=== PATIENT | male | born 1945 | race Two or more races ===

== ENCOUNTER 2016-08-24 18:26 | Emergency (ER) | payer MEDICARE, OTHER ==
[~2016-08-24] VITALS: Ht 185.4 cm; Wt 127.0 kg
[2016-08-24] MEDS ORDERED: TRAM50TA2 PO (18:39)
[2016-08-24] MEDS ORDERED: IBUP-1114 PO (18:39)
[2016-08-24] MEDS ORDERED: ACET-654 PO (18:39)
[2016-08-24] MEDS ORDERED: ELIQ5TAB PO (18:39)
[2016-08-24] MEDS ORDERED: FURO8SOL PO (18:39)
[2016-08-24] MEDS ORDERED: LOSA100T36 PO (18:39)
[2016-08-24] MEDS ORDERED: PERCOCET 5MG/325MG TAB PO ONE (20:00)
--- NOTE | 2016-08-24 20:50 | REPUSA ---
CT of the lumbar spine without contrast Clinical history: Pain. Technique: Multiple axial CT images were obtained through the lumbar spine without administration of contrast. Coronal and sagittal 3-D reconstructed images were also obtained. Findings: The lumbar vertebral bodies are in satisfactory positioning and alignment. No fractures or dislocatio ns are demonstrated. Intervertebral disc spaces are moderately narrowed at L3/L4 and L4/L5, with mild surrounding disc osteophyte noted. There is no evidence of facet subluxation. The neural foramen david ear grossly patent. The spinal canal demonstrates normal caliber and contour without evidence of spin al stenosis. The surrounding soft tissues are within normal limits. Impression: No acute fracture or traumatic injury. Moderate degenerative disc disease with spondylosi s at L3/L4 and L4/L5.
--- NOTE | 2016-08-24 20:50 | REPUSA ---
CT of the thoracic spine without contrast Clinical history: Pain. Technique: Multiple axial CT images were obtained through the thoracic spine without administration o f contrast. Coronal and sagittal 3-D reconstructed images were also obtained. Findings: The vertebral bodies are in satisfactory positioning and alignment. No fractures or dislocations are demonstrated. Intervertebral disc spaces are well-maintained. There is no evidence of facet subluxati on. The neural foramen appear grossly patent. The spinal canal demonstrates normal caliber and contou r without evidence of spinal stenosis. The surrounding soft tissues are within normal limits. Impression: No acute traumatic injury.
[2016-08-24] MEDS ORDERED: PERC5TAB6 PO (21:04)
[2016-08-24 21:26] VITALS: BP 100/76
== END 2016-08-24 21:29 | disposition home or self-care (01) ==
LOC: M ED 20:11
DX: M51.36 Other intervertebral disc degeneration, lumbar region (principal); S20.229A Contusion of unspecified back wall of thorax, initial encounter; W17.89XA Other fall from one level to another, initial encounter; Y92.099 Unspecified place in other non-institutional residence as the place of occurrence of the external cause; Y93.89 Activity, other specified; Y99.9 Unspecified external cause status
CPT/HCPCS: 72072; 72110; 72128; 72131; 99282; G0463

== ENCOUNTER → 2016-08-24 | Outpatient (CLI) | payer MEDICARE, OTHER ==
[~2016-08-24] MED LIST: ACET-654 PO; ELIQ5TAB PO; FURO8SOL PO; IBUP-1114 PO; LOSA100T36 PO; PERC5TAB6 PO; TRAM50TA2 PO
--- NOTE | 2016-08-24 19:24 | REP ---
LUMBAR SPINE COMPLETE: 08/24/2016: Clinical history: Low back pain without sciatica. Findings: There are no prior studies. The AP view shows pedicles, spinous and transverse processes intact. All five views demonstrate bridging syndesmophytes and osteophytes in the spine with narrowing of multiple disc levels. The largest osteophytes are anteriorly at the L5-S1. SI joints, sacral ala and foramina were intact. No compression deformity. There is facet arthropathy throughout the lower lumbar spine from L3-4 through L5-S1 without spondylolysis or spondylolisthesis. Schmorl's nodes at L2-3, L3-4. Impression: 1. Diffuse degenerative disc changes throughout lumbar spine, greatest at L3-4 and L5-S1 with facet arthritis at the lowermost levels, greatest at L5-S1. No compression deformity, malalignment, spondylolysis or spondylolisthesis. Signed by Johnathon Wise MD 08/24/2016 07:52 P
--- NOTE | 2016-08-24 19:39 | REP ---
THORACIC SPINE THREE VIEWS: 08/24/2016: Clinical history: Back pain. No prior study. Findings: Three views including a coned lateral view of the cervicothoracic junction provided. Pacer over the left upper chest wall laterally with the tip in the right ventricle. There is tortuosity of the aorta, airway deviated by a tortuous trachea. There are diffuse degenerative changes in the mid and lower thoracic spine with marginal osteophytes of the mid upper thoracic spine does not show any osteophytes or compression deformities. There is no fracture, disc space narrowing or other acute finding in the mid and lower thoracic spine. Posterior rib articulations and medial clavicles intact. The cervicothoracic junction aligns normally on the coned lateral view. Impression: 1. Degenerative disc changes mid and lower thoracic spine without compression deformity, malalignment or destructive bone lesion. Signed by Johnathon Wise MD 08/24/2016 07:52 P
== END ==
LOC: M LRY 16:28
PROVIDERS: ATTEND Physician Assistant
DX: M51.36 Other intervertebral disc degeneration, lumbar region (principal); M51.37 Other intervertebral disc degeneration, lumbosacral region; M51.34 Other intervertebral disc degeneration, thoracic region

== ENCOUNTER 2016-09-09 13:47 | Emergency (ER) | payer OTHER ==
[~2016-09-09] VITALS: Ht 185.4 cm; Wt 124.7 kg
[2016-09-09] MEDS ORDERED: ASPIRIN 81 MG CHEW TABLET PO ONE (14:30)
[2016-09-09] MEDS ORDERED: NITROGLYCERIN 0.4 MG SUBL TABLET SL PRN (14:30)
[2016-09-09 14:33] VITALS: BP 177/124
--- NOTE | 2016-09-09 14:57 | REP ---
Clinical: Chest pain. Comparison: None. Findings: Evaluation is limited by portable technique and underpenetration as well as poor inspiratory effort. Cardiomegaly is appreciated. No obvious focal consolidation, definite effusion or pneumothorax. Impression: Cardiomegaly. Mild chronic changes. No definite acute cardiopulmonary process. Signed by Jac Jones MD 09/09/2016 02:49 P
[2016-09-09 15:05] LABS: BASO % 0.4 % (0.0-1.0); EOS # 0.1 K/mm3 (0.0-0.50); EOS % 1.2 % (0.0-3.0); LARGE UNSTAINED CELL # 0.1 K/mm3 (0.0-0.4); LARGE UNSTAINED CELL % 1.8 % (0.0-4.0); LYMPH % 40.5 % (24.0-44.0); MEAN CORPUSCULAR HEMOGLOBIN 31.8 pg (27.0-33.0); MEAN CORPUSCULAR HGB CONC 32.1 g/dl (32.0-36.5); MONO # 0.3 K/mm3 (0.0-0.8); MONO % 3.7 % (0.0-5.0); NEUTROPHILS # 3.9 K/mm3 (1.8-7.7); NEUTROPHILS % 52.4 % (36.0-66.0); PLATELET COUNT, AUTOMATED 115 k/mm3 (150-450); RED CELL DISTRIBUTION WIDTH 12.9 % (11.5-14.5); WHITE BLOOD COUNT 7.5 K/mm3 (4.0-10.0)
[2016-09-09 15:13] LABS: INR 1.12
[2016-09-09 15:25] LABS: ALBUMIN 3.8 GM/DL (3.2-5.2); ALBUMIN/GLOBULIN RATIO 1.12 (1.00-1.93); ALKALINE PHOSPHATASE 111 U/L (45-117); ALT/SGPT 94 U/L (12-78); ANION GAP 6 MEQ/L (8-16); AST/SGOT 36 U/L (15-37); BILIRUBIN,DIRECT 0.4 MG/DL (0.0-0.2); BLOOD UREA NITROGEN 21 MG/DL (7-18); CALCIUM LEVEL 8.5 MG/DL (8.8-10.2); CARBON DIOXIDE LEVEL 30 MEQ/L (21-32); CHLORIDE LEVEL 102 MEQ/L (98-107); CREATININE FOR GFR 1.19 MG/DL (0.70-1.30); GLOMERULAR FILTRATION RATE > 60.0 (>42); GLUCOSE, FASTING 101 MG/DL (83-110); SODIUM LEVEL 138 MEQ/L (136-145); TOTAL PROTEIN 7.2 GM/DL (6.4-8.2)
--- NOTE | 2016-09-09 15:34 | REP ---
Clinical: Bilateral lower extremity pain and swelling . Technique: Cline scale and color Doppler evaluation using linear high frequency transducer. Findings: Ultrasound examination of the right and left lower extremity deep venous structures from the common femoral vein to the popliteal vein demonstrates normal compressibility flow and wave patterns in response to respiration and augmentation. There is no evidence for deep venous thrombosis. Impression: No evidence for deep venous thrombosis. Signed by Jac Jones MD 09/09/2016 03:25 P
[2016-09-09] MEDS ORDERED: ISOVUE-370 76% 100ML VIAL (Q9967) As Ordered ONE (16:01)
[2016-09-09] MEDS ORDERED: PERCOCET 5MG/325MG TAB PO ONE (16:15)
--- NOTE | 2016-09-09 16:29 | REP ---
Clinical: Acute chest pain. Technique: Axial contrast enhanced images from the thoracic inlet to the upper abdomen using 100 ml Isovue 370 intravenous contrast material with coronal and sagittal re-formations. Findings: Satisfactory enhancement of the pulmonary vasculature is achieved and no filling defects are identified to suggest pulmonary embolus. Lung aden demonstrate mild scattered chronic interstitial changes. Atherosclerotic changes of the aorta and coronary arteries noted along with cardiomegaly and mild pulmonary vascular congestion cannot be excluded. No pleural effusion/reaction. Tracheobronchial tree is patent. No pneumothorax. No adenopathy. Surrounding musculoskeletal structures demonstrate age-related changes without focal osseous abnormality. Limited evaluation of the upper abdomen demonstrates pneumobilia. Impression: 1. No evidence for pulmonary embolus. 2. No acute pleuroparenchymal or mediastinal process. 3. Chronic findings include cardiomegaly, atherosclerotic changes to the aorta and coronary arteries, mild chronic interstitial changes. 4. Upper abdomen demonstrates pneumobilia. Signed by Jac Jones MD 09/09/2016 04:21 P
--- NOTE | 2016-09-09 18:18 | REP ---
Clinical: Right-sided abdominal pain with chills. Findings: Lung bases demonstrate chronic changes. There is evidence for pneumobilia and while the gallbladder is mildly distended, there is no evidence for gallbladder wall thickening or pericholecystic fluid to suggest cholangitis. The liver is otherwise normal in appearance for noncontrast evaluation. Spleen, pancreas, bilateral adrenal glands are normal. Kidneys demonstrate mild age-related changes without hydronephrosis and contrast is noted in the collecting system consistent with prior chest CTA. The enteric system is without obstruction or acute inflammatory process. Colonic diverticulosis noted without acute diverticulitis. 5.5 cm fat containing periumbilical hernia noted. Pelvis demonstrates collapsed bladder and mildly prominent prostate gland. No ascites. No free air. No intraperitoneal or retroperitoneal adenopathy. Atherosclerotic changes to the aorta and vasculature noted without aneurysm. Musculoskeletal structures demonstrate degenerative changes without focal osseous abnormality. Impression: 1. Moderate pneumobilia and mildly distended gallbladder without secondary signs to suggest acute infectious/inflammatory process. Given the patient's age findings may be idiopathic. However, correlation with prior procedure including ERCP is recommended as well. 2. Diverticulosis without acute diverticulitis. 3. 5.5 cm fat containing periumbilical hernia. Signed by Jac Jones MD 09/09/2016 06:09 P
[2016-09-09 20:35] VITALS: BP 140/78
[2016-09-09] MEDS ORDERED: PERC5TAB6 PO (21:11)
--- NOTE | 2016-09-10 13:36 | CR ---
DATE OF CONSULTATION: 09/09/2016 REASON FOR CONCENTRATION: Pneumobilia. HISTORY OF PRESENT ILLNESS: The patient is a pleasant 70-year-old man who presented to the emergency department for evaluation at 1347 hours on September 09. He had complained of some chest discomfort, as well as some lightheadedness. These have been intermittent over the last 3 weeks or so. He has not passed out or fallen as a result of the dizziness. He has felt like it but has not actually had a loss of consciousness. His chest discomfort is aching intermittently but not associated with any shortness of breath or diaphoresis. He also reports that he has had a lot of intestinal gas but this has been going on for some time. He recently relocated to [place] from the [facility]. He was brought to the emergency department today by his daughter for further evaluation. In the course of his evaluation, he had a CT scan of the chest to look for any evidence of a pulmonary embolus and this showed no evidence of embolus, but a few small bubbles of air were identified consistent with biliary gas. He subsequently underwent a CT scan of the abdomen and pelvis that shows some definite bubbles of air within the biliary tree. There are no gallstones seen and no inflammatory changes involving the gallbladder. There is no sign of bowel obstruction and no evidence of abscess or inflammation within the abdomen. I was asked to evaluate the patient regarding the pneumobilia and whether this is of any clinical significance. ALLERGIES: The patient reports no known drug allergies. MEDICATIONS: Include: - Lasix - losartan - Eliquis MEDICAL HISTORY: The patient reports a cardiac intervention with a stent placement some years ago. He has also had a pacemaker placed. He reports that the pacemaker was interrogated within the last couple weeks by his core dropper and seems to be working. He denies any history of respiratory issues. He has no history of deep vein thrombosis (DVT) or pulmonary embolus. SURGICAL HISTORY: Significant only for his pacemaker and stent placement. He does report having had a colonoscopy some years ago. REVIEW OF SYSTEMS: Shows that he did have a fall back in early August when he was apparently trying to get up from a sitting position and slipped and landed on the floor with some pain in his lower back. He has not had any crushing sternal pains. He denies shortness of breath or wheezing. He has had no cough or sputum production. He denies any abdominal pain but has had sensation of increased intestinal gas and rumbling. He has not noticed any rectal bleeding. He denies any urinary issues. PHYSICAL EXAMINATION: Reveals a pleasant older man lying quietly on the emergency room stretcher. He is moderately obese. He is alert, oriented and cooperative. He was afebrile on presentation to the emergency department. His pulse is running in the low 50s to about 60. His blood pressure has generally been in the 140-160 range systolically. His skin is warm and dry. Sclerae are anicteric. The mucous membranes are moist. The neck is supple without mass or bruit. Heart exam shows a regular rhythm. He has a pacemaker palpable in the left infraclavicular fossa. The lungs are clear to auscultation bilaterally. He has a scar at the right costal margin about 4-5 cm with a suggestion of a lipoma just above this. The abdomen is obese and somewhat distended. He has bowel sounds present. There is some mild tympany to percussion across the subcostal areas bilaterally. The abdomen is soft and without significant tenderness. There is a suggestion of a prominence at the umbilicus consistent with an umbilical hernia. Lower extremities show no peripheral edema and he has intact dorsalis pedis pulses bilaterally. Calves are nontender. He has palpable radial pulses bilaterally. His laboratory studies include a CBC that shows a white count of 7.5, hemoglobin of 16, hematocrit of 49 and platelet count of 115,000. His differential count shows 52% neutrophils and 40% lymphocytes. His coags show a PT of 14.5, INR of 1.1 and a PTT of 30.3. His chemistry profile shows a sodium 138, potassium 4.0, chloride 102, CO2 of 30 , BUN of 21, creatinine 1.19 and a glucose of 101. Total bilirubin is 1.0, AST is 36, ALT 94 and alkaline phosphatase of 111. Initial cardiac injury profile was negative with a troponin of less than 0.02. His BNP was 114. Total protein 7.2 with an albumin of 3.8. Lipase is normal. The patient had a chest x-ray in the emergency department that revealed cardiomegaly but no other acute changes. An ultrasound of the bilateral lower extremities showed no evidence for deep vein thrombosis. A CT angiogram of the chest showed no evidence for pulmonary embolus. There was evidence for pneumobilia. Therefore a CT scan of the abdomen and pelvis was obtained. The CT of the abdomen and pelvis showed a 5.5 cm fat containing umbilical hernia. The images showed what the radiologist described as moderate pneumobilia with a mildly distended gallbladder but without any evidence of acute inflammation. He was also noted to have diverticulosis without diverticulitis. He did have some atherosclerotic changes of the great vessels. ASSESSMENT: 1. Pneumobilia, without symptoms and likely of a benign etiology. 2. Atherosclerotic coronary artery disease. 3. Status post pacemaker placement. 4. Obesity. 5. Chest pain and dizziness of unclear etiology. RECOMMENDATIONS: At this point, he does not appear to have any problems associated with his pneumobilia. His white count is normal with a normal differential count. His liver function tests are normal and there is no sign of any inflammatory change involving the gallbladder or pericholecystic tissues to suggest some other cause for his pneumobilia. 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 The patient has not had any history of prior biliary surgery or endoscopy. I therefore think it would be reasonable for the patient to be assessed regarding any other ongoing medical issues, but do not think any care directed toward this particular issue is necessary at this time. The patient was counseled regarding this recommendation. ZACHERY
--- NOTE | 2016-09-10 19:53 | ECGEPIP ---
Stationary ECG Study [facility] - ED Test Date: 2016-09-09 Pat Name: JERSON BRYANT Department: Room: - Gender: M [employer]: evelyn : 1945 Requested By: MELISSA Soto Order Number: [id number] Reading MD: Beti Cotto Measurements Intervals [place] Rate: 59 P: DC: 0 QRS: -75 QRSD: 202 T: 79 QT: 499 QTc: 497 Interpretive Statements ELECTRONIC VENTRICULAR PACEMAKER ABNORMAL RHYTHM ECG ATRIAL FIBRILLATION NO PRIOR FOR COMPARISON Electronically Signed On 09-10-2016 19:53:29 EDT by Beti Cotto
--- NOTE | 2016-09-10 19:58 | ECGEPIP ---
Stationary ECG Study [facility] - ED Test Date: 2016-09-09 Pat Name: JERSON BRYANT Department: Room: - Gender: M Rn Progressive Care Unit: suzanne : 1945 Requested By: MELISSA Soto Order Number: [id number] Reading MD: Beti Cotto Measurements Intervals [place] Rate: 57 P: FL: 0 QRS: -71 QRSD: 188 T: 86 QT: 501 QTc: 489 Interpretive Statements ELECTRONIC VENTRICULAR PACEMAKER ABNORMAL RHYTHM ECG SIMILAR 14:09 Electronically Signed On 09-10-2016 19:58:40 EDT by Beti Cotto
== END 2016-09-09 21:27 | disposition home or self-care (01) ==
LOC: M ED 15:43
DX: M54.5 Low back pain (principal); K82.8 Other specified diseases of gallbladder; R07.9 Chest pain, unspecified
CPT/HCPCS: 71010; 71275; 74176; 80048; 80076; 82550; 82553; 83690; 83880; 84484; 85025; 85610; 85730; 93005; 93041; 93971; 94760; 99285; Q9967

== ENCOUNTER 2017-10-22 18:59 | Emergency (ER) | payer OTHER ==
[2017-10-22] MEDS: ONDANSETRON 4MG/2ML VIAL (J2405) IV (20:00)
[2017-10-22] MEDS: MORPHINE 2 MG/ML 1ML SYRINGE (J2270) IV (20:11)
[2017-10-22] MEDS: IPRATROPIUM 0.5MG/ALBUTEROL 2.5MG INH SOL UD 3ML (DUONEB)(J7620) NEB (20:12)
[2017-10-22] MEDS: GASTROGRAFIN SOLUTION 30ML PO ×2 (20:15→20:45)
[2017-10-22 20:18] LABS: LACTIC ACID SEPSIS PROTOCOL 1.3 MMOL/L (0.4-2.0)
[2017-10-22 20:23] LABS: BASO % 0.5 % (0.0-1.0); EOS % 0.2 % (0.0-3.0); HEMATOCRIT 47.4 % (42.0-52.0); HEMOGLOBIN 15.5 g/dl (13.5-17.5); IMMATURE GRANULOCYTE % 0.3 % (0-3.0); LYMPH # 3.3 10^3/uL (1.5-4.5); MEAN CORPUSCULAR HEMOGLOBIN 32.3 pg (27.0-33.0); MEAN CORPUSCULAR VOLUME 98.8 fl (80.0-96.0); MONO # 0.8 10^3/uL (0.0-0.8); MONO % 8.7 % (0.0-5.0); NEUTROPHILS # 4.7 10^3/uL (1.8-7.7); NEUTROPHILS % 53.3 % (36.0-66.0); PLATELET COUNT, AUTOMATED 129 10^3/uL (150-450); RED CELL DISTRIBUTION WIDTH 13.2 % (11.5-14.5); WHITE BLOOD COUNT 8.8 10^3/uL (4.0-10.0)
[2017-10-22 20:25] LABS: MEAN CORPUSCULAR HGB CONC 32.7 g/dl (32.0-36.5)
[2017-10-22] MEDS: FUROSEMIDE 100 MG/10 ML VIAL (J1940) IV (21:00)
[2017-10-22] MEDS: NITROGLYCERIN 2% OINT 1 GM *U/D* PKT TOP (21:00)
[2017-10-22 21:39] LABS: INR 1.07
[2017-10-22 21:59] LABS: ALBUMIN 3.8 GM/DL (3.2-5.2); ALBUMIN/GLOBULIN RATIO 1.09 (1.00-1.93); ALKALINE PHOSPHATASE 93 U/L (45-117); ALT/SGPT 19 U/L (12-78); ANION GAP 11 MEQ/L (8-16); AST/SGOT 18 U/L (7-37); BILIRUBIN,DIRECT 0.5 MG/DL (0.0-0.2); BILIRUBIN,TOTAL 1.3 MG/DL (0.2-1.0); BLOOD UREA NITROGEN 18 MG/DL (7-18); CALCIUM LEVEL 8.7 MG/DL (8.8-10.2); CARBON DIOXIDE LEVEL 26 MEQ/L (21-32); CHLORIDE LEVEL 104 MEQ/L (98-107); CPK CREATINE PHOSPHOKINASE 75 U/L (39-308); CREATININE FOR GFR 1.42 MG/DL (0.70-1.30); GLOMERULAR FILTRATION RATE 52.3 (>42); GLUCOSE, FASTING 100 MG/DL (70-100); LIPASE 582 U/L (73-393); POTASSIUM SERUM 4.4 MEQ/L (3.5-5.1); SODIUM LEVEL 141 MEQ/L (136-145); TOTAL PROTEIN 7.3 GM/DL (6.4-8.2); TROPONIN I < 0.02 NG/ML (< 0.10)
[2017-10-22 22:01] LABS: CK-MB VALUE MASS 1.5 NG/ML (<3.6); NT-PRO BNP 3309 PG/ML (<125)
[2017-10-22] MEDS ORDERED: ISOVUE-370 76% 100ML VIAL (Q9967) As Ordered (22:03)
[2017-10-22] MEDS: TAMSULOSIN 0.4 MG CAP PO (23:00)
[2017-10-22 23:28] LABS: APPEARANCE, URINE CLEAR (CLEAR); BACTERIA, URINE AUTO NEGATIVE (NEGATIVE); BILIRUBIN, URINE AUTO NEGATIVE (NEGATIVE); BLOOD, URINE BLOOD 1+ (NEGATIVE); COLOR, URINE COLORLESS (YELLOW); GLUCOSE, URINE (UA) AUTO NEGATIVE (NEGATIVE); KETONE, URINE AUTO NEGATIVE (NEGATIVE); LEUKOCYTE ESTERASE, URINE AUTO NEGATIVE (NEGATIVE); NITRITE, URINE AUTO NEGATIVE (NEGATIVE); PROTEIN, URINE AUTO NEGATIVE (NEGATIVE); RBC, URINE AUTO 0 /HPF (0-3); SPECIFIC GRAVITY URINE AUTO 1.008 (1.002-1.035); SQUAMOUS EPITHELIAL CELL UR AU 0 /HPF (0-6); UROBILINOGEN, URINE AUTO 0.2 mg/dL (0.0-2.0); WBC, URINE AUTO 1 /HPF (0-3)
[2017-10-23 00:02] LABS: ABG BASE EXCESS 0.2 (-2.0-2.0); ABG HCO3 24.6 MEQ/L (22.0-26.0); ABG O2 SATURATION 94.4 % (95.0-99.0); ABG PARTIAL PRESSURE CO2 39.2 mmHg (35.0-45.0); ABG PARTIAL PRESSURE O2 69.7 mmHg (75.0-100.0); ABG STANDARD HCO3 24.6 MEQ/L (22.0-26.0); ABG TOTAL CO2 25.8 MEQ/L (23.0-31.0); ABG pH (ARTERIAL) 7.415 UNITS (7.350-7.450)
== END 2017-10-23 00:46 | disposition home or self-care (01) ==
LOC: M ED 10-23 00:46
DX: N20.1 Calculus of ureter (principal); I50.9 Heart failure, unspecified; Z91.14 Patient's other noncompliance with medication regimen; M47.816 Spondylosis without myelopathy or radiculopathy, lumbar region; I51.7 Cardiomegaly; J98.11 Atelectasis; I10 Essential (primary) hypertension; Z95.0 Presence of cardiac pacemaker; Z87.891 Personal history of nicotine dependence; Z79.01 Long term (current) use of anticoagulants; Z79.899 Other long term (current) drug therapy
CPT/HCPCS: Q9963

== ENCOUNTER → 2018-06-19 | Outpatient (CLI) | payer MEDICARE ==
[~2018-06-19] MED LIST changes: -ACET-654 PO; +ACET1TAB55 PO; +FLOM0.4C39 PO; +LASI40TA9 PO; -LOSA100T36 PO; +LOSA100T50 PO; +PERC5TAB12 PO; -PERC5TAB6 PO
[2018-06-19 11:54] LABS: INR 1.19; PROTHROMBIN TIME 15.3 SECONDS (12.1-14.4)
[2018-06-19 12:16] LABS: HEMATOCRIT 52.5 % (42.0-52.0); HEMOGLOBIN 16.8 g/dl (13.5-17.5); PLATELET COUNT, AUTOMATED 116 10^3/uL (150-450); RED BLOOD COUNT 5.25 10^6/uL (4.30-6.10); WHITE BLOOD COUNT 6.8 10^3/uL (4.0-10.0)
[2018-06-19 12:23] LABS: HEMOGLOBIN A1c 6.5 %
[2018-06-19 12:24] LABS: ALBUMIN 4.1 GM/DL (3.2-5.2); ALT/SGPT 22 U/L (12-78); BILIRUBIN,TOTAL 1.5 MG/DL (0.2-1.0); BLOOD UREA NITROGEN 19 MG/DL (7-18); CALCIUM LEVEL 9.7 MG/DL (8.8-10.2); CARBON DIOXIDE LEVEL 27 MEQ/L (21-32); CHLORIDE LEVEL 106 MEQ/L (98-107); CHOLESTEROL LEVEL 152 MG/DL (<200); CHOLESTEROL RISK RATIO 2.763 (<5); GLOMERULAR FILTRATION RATE > 60.0 (>42); GLUCOSE, FASTING 95 MG/DL (70-100); HDL CHOLESTEROL 55 MG/DL (>40); LDL CHOLESTEROL 85 MG/DL (<100); NON-HDL-C 97 MG/DL; POTASSIUM SERUM 4.5 MEQ/L (3.5-5.1); PROSTATIC SPECIFIC AG MONITOR 4.39 NG/ML (< 4.00); SODIUM LEVEL 140 MEQ/L (136-145); TOTAL PROTEIN 7.5 GM/DL (6.4-8.2); TRIGLYCERIDES LEVEL 62 MG/DL (<150)
== END ==
LOC: M LAB 11:00
PROVIDERS: ATTEND Family Medicine
DX: I10 Essential (primary) hypertension (principal); R53.83 Other fatigue; Z79.01 Long term (current) use of anticoagulants

== ENCOUNTER 2019-03-29 01:51 | Inpatient (IN) | payer MEDICARE ==
[~2019-03-29] VITALS: Ht 185.4 cm; Wt 119.2 kg
[2019-03-29] MEDS ORDERED: LISI10TA4 PO (02:08)
[2019-03-29] MEDS ORDERED: PRAZ1CAP PO (02:09)
[2019-03-29] MEDS ORDERED: CARB25TA31 PO (02:09)
[2019-03-29] MEDS ORDERED: MORPHINE 4 MG/ML 1ML VIAL/SYRINGE (J2270) IV ONE ×2 (03:00→06:00)
[2019-03-29] MEDS ORDERED: NS 500 ML IV ONE (03:00)
[2019-03-29 03:26] LABS: BASO % 0.2 % (0.0-1.0); EOS % 0.1 % (0.0-3.0); HEMATOCRIT 46.6 % (42.0-52.0); LYMPH # 3.7 10^3/uL (1.5-5.0); LYMPH % 35.8 % (24.0-44.0); MEAN CORPUSCULAR HEMOGLOBIN 33.9 pg (27.0-33.0); MEAN CORPUSCULAR HGB CONC 32.2 g/dl (32.0-36.5); MEAN CORPUSCULAR VOLUME 105.2 fl (80.0-96.0); MONO # 0.3 10^3/uL (0.0-0.8); MONO % 2.6 % (0.0-5.0); NEUTROPHILS # 6.3 10^3/uL (1.5-8.5); PLATELET COUNT, AUTOMATED 144 10^3/uL (150-450); RED BLOOD COUNT 4.43 10^6/uL (4.30-6.10); WHITE BLOOD COUNT 10.3 10^3/uL (4.0-10.0)
[2019-03-29 03:38] LABS: INR 1.22; PROTHROMBIN TIME 15.1 SECONDS (11.8-14.0)
[2019-03-29 03:39] LABS: PARTIAL THROMBOPLASTIN TIME 24.8 SECONDS (25.0-38.4)
[2019-03-29 03:44] LABS: APPEARANCE, URINE CLOUDY (CLEAR); BACTERIA, URINE AUTO 1+ (NEGATIVE); BILIRUBIN, URINE AUTO NEGATIVE (NEGATIVE); BLOOD, URINE BLOOD 3+ (NEGATIVE); CALCIUM OXALATE CRYSTALS SMALL; COLOR, URINE AMBER (YELLOW); GLUCOSE, URINE (UA) AUTO 1+ mg/dL (NEGATIVE); KETONE, URINE AUTO TRACE mg/dL (NEGATIVE); LEUKOCYTE ESTERASE, URINE AUTO 1+ (NEGATIVE); MUCUS, URINE SMALL (NEGATIVE); NITRITE, URINE AUTO NEGATIVE (NEGATIVE); PROTEIN, URINE AUTO 2+ mg/dL (NEGATIVE); RBC, URINE AUTO TNTC /HPF (0-3); SPECIFIC GRAVITY URINE AUTO 1.026 (1.002-1.035); SQUAMOUS EPITHELIAL CELL UR AU 2 /HPF (0-6); WBC, URINE AUTO 45 /HPF (0-3)
[2019-03-29 04:42] LABS: ALBUMIN 3.8 GM/DL (3.2-5.2); ALT/SGPT 16 U/L (12-78); BILIRUBIN,DIRECT 0.5 MG/DL (0.0-0.2); BILIRUBIN,TOTAL 1.6 MG/DL (0.2-1.0); BLOOD UREA NITROGEN 15 MG/DL (7-18); CALCIUM LEVEL 9.5 MG/DL (8.8-10.2); CARBON DIOXIDE LEVEL 26 MEQ/L (21-32); CHLORIDE LEVEL 108 MEQ/L (98-107); CREATININE FOR GFR 0.82 MG/DL (0.70-1.30); GLOMERULAR FILTRATION RATE > 60.0 (>42); GLUCOSE, FASTING 126 MG/DL (70-100); LIPASE 39 U/L (73-393); POTASSIUM SERUM 4.6 MEQ/L (3.5-5.1); SODIUM LEVEL 141 MEQ/L (136-145)
[2019-03-29] MEDS ORDERED: ISOVUE-370 76% 100ML VIAL (Q9967) As Ordered ONE (04:56)
--- NOTE | 2019-03-29 06:35 | REPVR ---
PROCEDURE INFORMATION: Exam: CT Abdomen And Pelvis With Contrast Exam date and time: 03/29/2019 5:04 AM Age: 73 years old Clinical history: Abdominal pain; Localized; Left lower quadrant (llq); Additional info: Llq pain TECHNIQUE: Imaging protocol: Computed tomography of the abdomen and pelvis with intravenous contrast. Radiation optimization: All CT scans at this facility use at least one of these dose optimization techniques: automated exposure control; mA and/or kV adjustment per patient size (includes targeted exams where dose is matched to clinical indication); or iterative reconstruction. Contrast material: ISOVUE 370; Contrast volume: 100 ml; Contrast route: IV; COMPARISON: CT ABD/PEL W/IV ORAL CONTRAS 10/22/2017 10:09 PM FINDINGS: Lungs: There is a suggestion of mild peripheral interstitial thickening in the visualized lung bases but assessment is somewhat limited by motion. Heart: Pacemaker wires are seen at the heart. The heart is enlarged. Liver: The liver surface appears nodular and there is relative enlargement of the left lobe and caudate lobe, consistent with cirrhosis. There are no focal liver lesions present. There is a small amount of perihepatic fluid. Gallbladder and bile ducts: Air is again seen in the biliary tree, and likely related to prior sphincterotomy. There is focal hyperdensity in the lumen of the common bile duct within the pancreatic head, measuring approximate 11 mm. The common bile duct measures 14 mm in the suprapancreatic region, unchanged from the prior exam. The gallbladder is normal with no stones or biliary ductal dilation. Pancreas: The pancreas is normal with no ductal dilation. Spleen: The spleen is normal. Adrenals: The adrenal glands are normal. Kidneys and ureters: The kidneys are unremarkable. There are no ureteral stones or hydronephrosis. Stomach and bowel: There are multiple dilated, fluid filled small bowel loops with nondilated distal small bowel loops, consistent with a small bowel obstruction. A precise transition point is not identified. Moderate diverticulosis is present in the sigmoid and descending colon. There is fluid in the colon with no significant dilation of the colon. Appendix: The appendix is not specifically identified. Intraperitoneal space: There is no free intraperitoneal air. There is no free fluid in the pelvis. Vasculature: The aorta demonstrates moderate atherosclerotic calcification. Lymph nodes: No lymphadenopathy is seen. Bladder: The bladder is unremarkable. No stones identified. Reproductive: The prostate gland demonstrates mild nonspecific enlargement. The seminal vesicles are normal. Bones/joints: Degenerative endplate changes are seen at multiple levels in the visualized spine. Soft tissues: There are 2 midline abdominal wall hernias containing fat, one at the periumbilical region and the other just above the umbilicus. Both hernias were present previously but there is now heterogeneous density of the tissue within both hernias sacs and there is stranding in the subcutaneous tissues around both hernias which were not present on the prior exam. IMPRESSION: 1. Dilated fluid filled small bowel loops and nondilated distal small bowel loops, consistent with a small bowel obstruction but the exact site of obstruction and cause of obstruction is not clearly identified. 2. There are 2 midline anterior abdominal wall hernias containing fat. The hernias were present previously, but there is infiltration of the fat within the hernia sacs and in the subcutaneous tissues adjacent to the hernia sacs which were not present on prior CT scan of 2018. 3. Cirrhotic configuration of the liver. Small amount of perihepatic fluid. 4. Stable biliary ductal dilation and air in the biliary tree from a prior sphincterotomy, also seen previously. Focal hyperdensity in the lumen of the bile duct within the pancreatic head, which may be a stone or mass, not seen on the prior exam. 5. Distal colon diverticulosis but no evidence of acute diverticulitis. Electronically signed by: Naida Montesinos On 03/29/2019 06:34:43 AM
[2019-03-29] MEDS ORDERED: OXYC-517 PO (07:14)
[2019-03-29] MEDS ORDERED: NAPR500T6 PO (07:14)
[2019-03-29] MEDS ORDERED: HYDROMORPHONE HCL 0.5 MG/ 0.5 ML SYRINGE (J1170 PER 1) IV PRN (07:30)
[2019-03-29] MEDS ORDERED: KETOROLAC 30 MG/ML VIAL (J1885) IV PRN (11:15)
[2019-03-29] MEDS ORDERED: MORPHINE 2 MG/ML 1ML VIAL (J2270) IV PRN (11:15)
[2019-03-29] MEDS: LR 1,000 ML IV SCH ×2 (11:34→20:42)
[2019-03-29 12:00] VITALS: BP 170/87
[2019-03-29 14:00] VITALS: BP 164/96
[2019-03-29] MEDS: SINEMET**CR** 25/100 TABCR PO SCH ×3 (14:56→20:42)
[2019-03-29] MEDS: lisinopriL 10 MG TAB PO SCH (14:57)
[2019-03-29 18:00] VITALS: BP 162/95
[2019-03-29 20:23] VITALS: BP 134/79
[2019-03-29] MEDS: PRAZOSIN 1 MG CAP PO SCH (20:42)
[2019-03-30 06:41] VITALS: BP 166/115
[2019-03-30 06:42] VITALS: BP 162/95
[2019-03-30 07:13] LABS: BLOOD UREA NITROGEN 17 MG/DL (7-18); CALCIUM LEVEL 8.3 MG/DL (8.8-10.2); CARBON DIOXIDE LEVEL 20 MEQ/L (21-32); CHLORIDE LEVEL 113 MEQ/L (98-107); CREATININE FOR GFR 0.66 MG/DL (0.70-1.30); GLOMERULAR FILTRATION RATE > 60.0 (>42); GLUCOSE, FASTING 73 MG/DL (70-100); POTASSIUM SERUM 4.4 MEQ/L (3.5-5.1); SODIUM LEVEL 138 MEQ/L (136-145)
[2019-03-30] MEDS: lisinopriL 10 MG TAB PO SCH ×2 (08:59→19:03)
[2019-03-30] MEDS: SINEMET**CR** 25/100 TABCR PO SCH ×4 (09:00→20:04)
[2019-03-30 10:00] VITALS: BP 148/92
--- NOTE | 2019-03-30 10:50 | REP ---
SUPINE ABDOMEN: 03/30/2019. COMPARISON: CT abdomen pelvis, 03/29/2019. CLINICAL HISTORY: Followup SBO. FINDINGS: Three views were utilized to encompass the entirety of the abdomen and pelvis in supine projection. Nasogastric tube is seen with its tip just at the GE junction. There is a single lead pacer with its tip terminating over the expected position of the right ventricle. The gas pattern compared to yesterday's CT shows marked reduction in distension of the small bowel loops which are now of normal caliber. Scattered stool and gas, mild to moderate volume throughout the colon to the distal left colon. No dilated colon loops. There are degenerative disc changes with marginal osteophytes and bridging syndesmophytes throughout the lower thoracic and entire lumbar spine. No abnormal calcifications. IMPRESSION: 1. Nasogastric tube at the GE junction and with marked decrease in distension of small bowel loops compared to yesterday's CT. This represents resolving small bowel obstruction. 2. Mild to moderate diffuse stool cecum to distal left colon without abnormal distension of bowel loops. 3. No abnormal calcification or mass. Diffuse degenerative changes in the spine. Electronically Signed by Johnathon Wise MD 03/30/2019 11:03 A
[2019-03-30 11:03] LABS: BASO % 0.5 % (0.0-1.0); EOS # 0.1 10^3/uL (0.0-0.5); EOS % 1.1 % (0.0-3.0); HEMOGLOBIN 13.6 g/dl (13.5-17.5); LYMPH # 2.6 10^3/uL (1.5-5.0); LYMPH % 39.4 % (24.0-44.0); MEAN CORPUSCULAR HEMOGLOBIN 32.5 pg (27.0-33.0); MEAN CORPUSCULAR VOLUME 105.3 fl (80.0-96.0); MONO # 0.5 10^3/uL (0.0-0.8); MONO % 6.9 % (0.0-5.0); NEUTROPHILS # 3.5 10^3/uL (1.5-8.5); NEUTROPHILS % 51.9 % (36.0-66.0); PLATELET COUNT, AUTOMATED 117 10^3/uL (150-450); RED BLOOD COUNT 4.18 10^6/uL (4.30-6.10); WHITE BLOOD COUNT 6.6 10^3/uL (4.0-10.0)
[2019-03-30 11:04] LABS: MEAN CORPUSCULAR HGB CONC 30.9 g/dl (32.0-36.5)
[2019-03-30] MEDS: ACETAMINOPHEN TAB 650MG DOSE (2X325MG) PO PRN (11:52)
[2019-03-30] MEDS: LR 1,000 ML IV SCH (11:55)
[2019-03-30] MEDS ORDERED: LACTULOSE 20 GM/30 ML SYRUP UD PO ONE (12:15)
[2019-03-30 14:00] VITALS: BP 170/101
[2019-03-30 17:00] VITALS: BP 174/92
[2019-03-30] MEDS: PRAZOSIN 1 MG CAP PO SCH (20:04)
[2019-03-30] MEDS: DOCUSATE SODIUM 100 MG CAP PO SCH (20:04)
--- NOTE | 2019-03-30 21:40 | HPE ---
DATE OF ADMISSION: 03/29/2019 ADMITTING DIAGNOSIS: Small bowel obstruction. HISTORY OF PRESENT ILLNESS: The patient is a pleasant, 73-year-old man who presented to the emergency department at 1:51 in the morning on 03/29/2019 complaining of abdominal pain. The patient reported that he did not have any significant past history of intestinal problems. He noted the onset of some abdominal pain on the morning of 03/28/2019 which continued through the day with a gradual worsening of his discomfort. By the late evening and night the pain had become quite significant. He reported that he had been having some constipation with hard stools recently and had also noted some difficulty starting his urine stream recently. He had contacted his daughter who brought him to the emergency department for evaluation. In the emergency department, he was found to have a somewhat distended abdomen with underlying obesity. He was noted to have a hernia at the umbilicus which was not reducible but was also nontender. He did have some tenderness primarily in the left lower quadrant. He underwent evaluation with some lab work and a CT scan of the abdomen and pelvis was obtained. The CT was interpreted by the radiologist as showing some diverticulosis in the sigmoid and descending colon but without evidence for diverticulitis. The appendix was not identified. He had two ventral hernias containing fat which had been noted on a prior scan in October 2017. He did have multiple dilated fluid-filled small bowel loops with some nondilated distal small bowel suggestive of a small bowel obstruction. He had some stable biliary ductal dilation as well as a small amount of air in the biliary tree. This had also been noted on his prior CT scan. The patient had a nasogastric tube inserted in the emergency department and I was consulted to evaluate the patient regarding management of his apparent small-bowel obstruction. ALLERGIES: The patient denies any known drug allergies. MEDICATIONS: He is on: - carbidopa levodopa extended release tablets 25-100 mg tablets one four times daily - lisinopril 10 mg by mouth daily - naproxen 500 mg by mouth twice daily - oxycodone 5 mg by mouth three times daily as needed for pain - prazosin 1 mg by mouth every evening MEDICAL HISTORY: The patient's current medical provider is Dr. Sera Smith. The patient had relocated from [place] to the [facility] several years ago and has been seen here only for several years. His history is significant for a myocardial infarction some years ago. He apparently had a coronary stent placed. He had atrial fibrillation and a pacemaker was placed. He had at one time been on anticoagulation for his atrial fibrillation but he is not currently anticoagulated. He has a history of hypertension and high cholesterol. He has some arthritis and chronic back pain. He also has a resting tremor and carries a diagnosis of Parkinson's disease. SURGICAL HISTORY: Is significant for a coronary stent placement. I do not have additional details regarding this. He has had a pacemaker placed. He had been followed by a clerical associate in the [facility]. He has had an appendectomy in the distant past and also apparently has had a left inguinal hernia repair. He has had a cataract extraction with lens implant. FAMILY HISTORY: Is noncontributory in this elderly gentleman. SOCIAL HISTORY: He denies any tobacco use or alcohol use recently. REVIEW OF SYSTEMS: Reveals that he has had no chest pain or palpitations. He denies any cough, wheezing or sputum production. He has been having some constipation but no rectal bleeding. He denies any dysuria or hematuria. He denies any underlying renal disease. He denies any history of DVT or pulmonary embolus. He has some chronic back pain but denies any specific orthopedic complaints. He does have a tremor and has been told he has Parkinson's disease. His daughter reports that he is somewhat vague on his medical history and she did try to fill in some details that he was having trouble remembering. PHYSICAL EXAMINATION: Reveals a very pleasant, elderly gentleman lying quietly on the stretcher in the emergency department. He is alert and appears globally oriented. He does have a little trouble finding words for medical issues, but in general communicates his history quite well. His most recent vital signs showed a pulse of approximately 82 with a blood pressure of 152/84. His respiratory rate was 16 and he had been afebrile. Skin is warm and dry. Sclerae are anicteric. Mucous membranes are moist. Neck is supple without mass and there are no cervical bruits evident. Examination shows a palpable pacemaker in the left infraclavicular fossa. Heart exam shows a regular rhythm. The lungs are clear bilaterally to auscultation. The abdomen is somewhat obese and mildly protuberant. He does have some bowel sounds present in all four quadrants. There is a hernia palpable which appears to arise within the umbilicus and this is perhaps 5-6 cm in diameter and not reducible but also nontender. There are no palpable masses within the abdomen. There is some mild tenderness on palpation across the lower abdomen. He has an old oblique scar low in the right lower quadrant which would be consistent with an appendectomy. He has an old healed scar in the left inguinal area also. Extremities show some chronic skin changes of the lower legs suggestive of some chronic venous stasis. He has palpable pulses in the ankles and wrists. LABORATORY STUDIES: Include a CBC showing a white count of 10 with a differential showing 61% neutrophils, 36% lymphocytes and 3% monocytes. Hemoglobin is 15 with a hematocrit of 47 and his platelet count is 144,000. MCV is 105. Coagulations show a PT of 15.1, INR of 1.2 and an aPTT of 24.8. His chemistry profile shows a sodium of 141, potassium 4.6, chloride 108, CO2 of 26, BUN of 15, creatinine 0.8 and glucose of 126. His total bilirubin is 1.6 with a direct of 0.5 and his other liver function tests were all entirely normal with a lipase of 39. Urinalysis shows cloudy urine with 3+ blood, 45 white cells and too numerous to count red cells. Leukocyte esterase is 1+ with urine bacteria also 1+. His CT scan images I reviewed personally. He has no evidence of pulmonary infiltrates or effusions in the lower lung field. There does appear to be a minimal amount of fluid around the right lobe of the liver. The gallbladder does not appear inflamed and there are no evident gallstones. There is a minimal amount of air noted in the left side of the biliary tree. He does have some mildly distended primarily fluid-filled but also air-filled loops of small-bowel particularly in the upper abdomen and left upper quadrant in particular. There is some small decompressed distal small bowel. He has a fat containing hernia at the umbilicus. There is another small hernia perhaps just above the level of the umbilicus. He does have some stool noted in the distal colon. IMPRESSION: 1. Small bowel obstruction likely secondary to adhesions. 2. History of atrial fibrillation. 3. Coronary artery disease status post coronary artery stenting. 4. Status post pacemaker implantation. 5. Hypertension. 6. Hyperlipidemia. 7. Parkinson's disease. PLAN: The patient will be admitted to the hospital with his NG tube in place. This will be continued to low intermittent suction. He will be maintained on IV maintenance fluid. I will let him take his normal blood pressure medications and his Sinemet with sips of water and clamp the NG tube as needed for each dose. He currently reports that his discomfort has diminished from what it was when he presented. I will order a repeat KUB and some repeat labs in the morning. I counseled the patient and his daughter that it is quite likely that his bowel obstruction will resolve on its own without the need for any surgical intervention. If he has shown no sign of improvement within the next 48 hours or so, it may be reasonable to consider proceeding with laparoscopy and possible lysis of adhesions. He will be provided with analgesics as necessary. The patient and his daughter had an opportunity to ask questions and these were answered to the best my ability. He desires to proceed as I have outlined. ZACHERY
--- NOTE | 2019-03-30 21:47 | IPN ---
DATE: 03/30/2019 HISTORY: The patient was admitted yesterday with a history of some abdominal pain and distension with a CT scan suggesting a small bowel obstruction. A nasogastric tube was placed and he has been maintained on maintenance IV fluids. VITAL SIGNS: Show that the patient has been afebrile since admission. His pulse is in the range of 60-65 generally. His blood pressure has been up a little bit today into the 150-170 systolic range. Intake and output shows that yesterday he had 500 mL recorded in IV. This is less than would be anticipated given his current IV rate. He has had some urine output recorded and only minimal fluid out his NG tube. PHYSICAL EXAMINATION: The patient is lying quietly in the hospital bed. His NG tube appears not to be in to an optimal depth. He denies any nausea or vomiting and reports he has been passing flatus. Heart exam shows a regular rhythm. The abdomen is mildly obese but soft. He has active bowel sounds and there is no tenderness to palpation. LABORATORY STUDIES: Show a white count of 7, hemoglobin of 14, hematocrit 44 and platelet count of 117,000. Differential count is normal. Chemistry profile shows a sodium of 138, potassium 4.4, chloride 113, CO2 of 20, BUN of 17, creatinine 0.7 and glucose of 73. KUB this morning shows that the NG tube is not really in far enough with the tip about at the GE junction. There is a significant decrease in the noted small bowel loops. There is some stool noted within the right and left colon. IMPRESSION: The patient appears to be resolving his intestinal obstruction. He has reported problems with very hard stool recently and it may be that constipation is a significant contributing factor to his symptoms. PLAN: I will remove his NG tube today and place him on unlimited clear liquids. I will give him a dose of lactulose to see if this will help shift some stool and also start him on some routine twice daily Colace. I will also give him an extra dose of lisinopril today given his elevated blood pressure. If he tolerates the clear liquids today, we will consider advancing his diet in the morning or even discharging him home depending on his state at that time. NY[facility] LANGONE HEALTH SYSTEMNaun
[2019-03-31 06:00] VITALS: BP 154/91
[2019-03-31] MEDS: DOCUSATE SODIUM 100 MG CAP PO SCH (08:55)
[2019-03-31 08:56] VITALS: BP 154/91
[2019-03-31] MEDS: lisinopriL 10 MG TAB PO SCH (08:56)
[2019-03-31] MEDS: SINEMET**CR** 25/100 TABCR PO SCH ×3 (08:56→17:37)
[2019-03-31 10:00] VITALS: BP 162/94
[2019-03-31 14:00] VITALS: BP 132/76
--- NOTE | 2019-03-31 14:33 | REP ---
KUB: Two views. History: Small bowel obstruction. Followup. Comparison study: March 30, 2019. Findings: There are a few air-filled borderline caliber small bowel loops in the left mid abdomen. These are a little more prominent than on the March 30, 2019 study. Bowel gas pattern is otherwise unremarkable. No mass or organomegaly is seen. The nasogastric tube was seen in the distal esophagus on yesterday's radiograph. This area is not included in today's imaging field of view. Impression: There are a few dilated air-filled small bowel loops in the left central abdomen. These are more prominent today. Electronically Signed by Hector Reece MD 03/31/2019 05:59 P
[2019-03-31] MEDS ORDERED: DOCU100C16 PO (16:41)
[2019-03-31] MEDS: ACETAMINOPHEN TAB 650MG DOSE (2X325MG) PO PRN (17:37)
--- NOTE | 2019-04-02 00:02 | IPN ---
DATE: 03/31/2019 HISTORY: The patient was admitted with evidence for a bowel obstruction on 03/29/2019. His pain resolved fairly rapidly after several bowel movements. He had some dilated loops of small bowel noted on x-ray, and these were markedly improved by a KUB the following day. His nasogastric (NG) tube was removed, and he was started on some sips of clear liquids. He was started on unlimited liquids on 03/30/2019. He tolerated these quite well through this morning. He denies any abdominal pain other than an occasional twinge in his left lower quadrant. He has had additional bowel activity. He has no nausea or vomiting. Vital signs: Show that he has been afebrile with a pulse in the 50s to 70s and a blood pressure that is fine. Intake and output shows that he had 1400 orally yesterday with excellent urine output and four bowel movements recorded. PHYSICAL EXAMINATION: The patient is awake and alert and appears comfortable. Heart exam shows a regular rhythm. The abdomen appears somewhat protuberant but is soft and without significant tenderness. He does have his palpable incarcerated umbilical hernia noted. There is no significant tenderness otherwise. IMAGING: The patient had a KUB this morning that was really not done until almost noon. Examination of the pictures shows me that there are a couple of small air-filled loops that are most likely small bowel in the left mid to lower abdomen. Some of this air may actually lie within a redundant sigmoid colon as noted on his CT scan. There is no evidence of free air and certainly no definite sign of obstruction. IMPRESSION: The patient appears to be doing well and has tolerated clear liquids over the last day. His x-ray has improved. He seems to be just slightly distended but his abdomen is benign. PLAN: The patient will be started on some regular food for lunch, and if he tolerates this well, he will be discharged later in the day. ZACHERY
--- NOTE | 2019-04-16 11:54 | DSES ---
DATE OF ADMISSION: 03/29/2019 DATE OF DISCHARGE: 03/31/2019 ADMITTING DIAGNOSIS: Small bowel obstruction. HISTORY OF PRESENT ILLNESS: Patient is a 73-year-old man who presented to the emergency department in the mechanical tech of 03/29/2019 complaining of abdominal pain. He was noted to have an umbilical hernia which was not reducible but was nontender. A CT scan of the abdomen and pelvis was interpreted as showing dilated fluid-filled small bowel with some nondilated distal small bowel suggestive of a small-bowel obstruction. A nasogastric tube was inserted in the emergency department and I was consulted and he was admitted for management of an apparent small-bowel obstruction. HOSPITAL COURSE: The patient received maintenance IV fluid. He was given analgesics as needed. By the following day, the patient reported that he had no nausea or vomiting and had been passing flatus. The abdomen was mildly obese but soft with active bowel sounds. A KUB revealed that the nasogastric tube was not in far enough with a significant decrease in the noted small bowel air. He was therefore treated with the removal of his nasogastric tube. He was started on some clear liquids. He was given a dose of lactulose. He tolerated the liquids well with several bowel movements noted. A followup KUB on 03/31/2019 showed just a few small areas of air-filled bowel. He was advanced to a regular diet and after tolerating this was discharged home later on 03/31/2019. FINAL DIAGNOSES: 1. Small bowel obstruction, resolved. 2. History of atrial fibrillation. 3. Coronary artery disease status post coronary artery stenting. 4. Status post pacemaker implantation. 5. Hypertension. 6. Hyperlipidemia. 7. Parkinson's disease. DISPOSITION: He was discharged home on 03/31/2019. He was advised to return to the surgery clinic only if necessary. He could followup regularly with his primary physician. He could pursue activity as tolerated and take a regular diet. He was to continue his usual medications and was also recommended that he begin a stool softener with Colace 100 mg by mouth twice daily and continue this indefinitely. He was to continue his usual medications. ZACHERY
== END 2019-03-31 20:30 | disposition home or self-care (01) | DRG 390 ==
LOC: M ED 01:51 → EDBD 01:51 → M ED INP 11:05 → M MS5PR 12:00
PROVIDERS: ADMIT Surgery; ATTEND Surgery
DX: K56.609 Unspecified intestinal obstruction, unspecified as to partial versus complete obstruction (principal); I25.2 Old myocardial infarction; I48.91 Unspecified atrial fibrillation; I10 Essential (primary) hypertension; E78.5 Hyperlipidemia, unspecified; K56.50 Intestinal adhesions [bands], unspecified as to partial versus complete obstruction; G20 Parkinson's disease; G89.29 Other chronic pain; M06.9 Rheumatoid arthritis, unspecified; M54.9 Dorsalgia, unspecified; K59.00 Constipation, unspecified; Z95.1 Presence of aortocoronary bypass graft; Z95.0 Presence of cardiac pacemaker; Z98.49 Cataract extraction status, unspecified eye; Z90.49 Acquired absence of other specified parts of digestive tract

== ENCOUNTER → 2019-06-13 | Outpatient (CLI) | payer MEDICARE ==
[~2019-06-13] MED LIST changes: +CARB25TA31 PO; +DOCU100C16 PO; +LISI10TA4 PO; +NAPR500T6 PO; +OXYC-517 PO; +PRAZ1CAP PO
--- NOTE | 2019-06-13 18:26 | REP ---
Lumbar spine five views: Comparison is 08/24/2016. There is mild scoliosis convex right. There is advanced degenerative disc disease throughout the lumbar spine. This is unchanged. There is grade 1 compression deformity of the L1 vertebral body, unchanged. Vertebral body heights are otherwise unremarkable and unchanged. There is facet osteoarthritis at the lower lumbar levels, unchanged. The pedicles are unremarkable. Sacroiliac articulations are unremarkable. Impression: Mild scoliosis. Multilevel advanced degenerative disc disease. Grade 1 compression of the L1 vertebral body. Facet osteoarthritis. No interval change. Electronically Signed by Ayden Solano MD 06/13/2019 06:18 P
--- NOTE | 2019-06-13 18:27 | REP ---
Bilateral hips: AP pelvis: The right and left hip articulations and right left sacroiliac articulations are unremarkable. There are no pelvic calcifications. The sacral ala and sacroiliac articulations are unremarkable. Impression: Negative AP pelvis. Right hip two views: Mineralization and joint space are normal. There is no femoral head deformity. There is no fracture or dislocation. No calcifications. Impression: Negative right hip. Left hip two views: Mineralization and joint space are normal. There is no femoral head deformity. There is no fracture or dislocation. There are no calcifications. Impression: Negative left hip. Electronically Signed by Ayden Solano MD 06/13/2019 06:19 P
== END ==
LOC: M WUC 17:32
PROVIDERS: ATTEND Family Medicine
DX: M46.96 Unspecified inflammatory spondylopathy, lumbar region (principal); M51.36 Other intervertebral disc degeneration, lumbar region; M54.30 Sciatica, unspecified side

== ENCOUNTER 2020-12-25 23:27 | Inpatient (IN) | payer MEDICARE ==
[~2020-12-25] VITALS: Ht 185.4 cm; Wt 86.6 kg
[~2020-12-25 23:27] MED LIST changes: +LISI10TA22 PO; -LISI10TA4 PO
[2020-12-26 00:33] LABS: VENOUS BASE EXCESS 0.2 (-2.0-2.0); VENOUS HCO3 24.8 MEQ/L (23.0-27.0); VENOUS O2 SATURATION 98.8 % (60.0-80.0); VENOUS PARTIAL PRESSURE O2 133.2 mmHg (30.0-50.0); VENOUS STANDARD HCO3 24.7 MEQ/L
--- NOTE | 2020-12-26 00:35 | REPVR ---
PROCEDURE INFORMATION: Exam: XR Chest Exam date and time: 12/25/2020 12:20 AM Age: 75 years old Clinical indication: Altered mental status TECHNIQUE: Imaging protocol: XR of the chest. Views: 1 view. COMPARISON: CR Chest, 2 view PA, Lat 10/22/2017 8:00 PM FINDINGS: Tubes, catheters and devices: There is a left subclavian pacemaker device in place with its single intact lead projecting over the right ventricle. Lungs: Unremarkable. No consolidation. No pulmonary edema. Pleural spaces: Unremarkable. No pleural effusion. No pneumothorax. Heart/Mediastinum: The heart is enlarged. The mediastinal contours are unremarkable. Bones/joints: There are endplate spurs in the thoracic spine. There are calcifications of the right coracoclavicular ligament. IMPRESSION: 1. No radiographic evidence for an acute cardiopulmonary process. 2. Cardiomegaly. Electronically signed by: Dimitris Del Angel On 12/26/2020 00:35:09 AM
[2020-12-26 01:02] LABS: BASO % 0.4 % (0.0-1.0); EOS % 0.1 % (0.0-3.0); HEMOGLOBIN 14.9 g/dl (13.5-17.5); LYMPH # 2.6 10^3/uL (1.5-5.0); LYMPH % 31.5 % (24.0-44.0); MEAN CORPUSCULAR HEMOGLOBIN 34.1 pg (27.0-33.0); MONO # 0.6 10^3/uL (0.0-0.8); NEUTROPHILS # 4.9 10^3/uL (1.5-8.5); NEUTROPHILS % 60.6 % (36.0-66.0); PLATELET COUNT, AUTOMATED 153 10^3/uL (150-450); RED BLOOD COUNT 4.37 10^6/uL (4.30-6.10); WHITE BLOOD COUNT 8.1 10^3/uL (4.0-10.0)
[2020-12-26 01:04] LABS: MEAN CORPUSCULAR HGB CONC 33.1 g/dl (32.0-36.5)
[2020-12-26 01:12] LABS: OSMOLALITY SERUM 298 MOSM/KG (280-301)
[2020-12-26 01:20] LABS: ALBUMIN 3.1 GM/DL (3.2-5.2); ALT/SGPT 17 U/L (12-78); BILIRUBIN,DIRECT 0.8 MG/DL (0.0-0.2); BILIRUBIN,TOTAL 2.1 MG/DL (0.2-1.0); BLOOD UREA NITROGEN 20 MG/DL (7-18); CALCIUM LEVEL 9.2 MG/DL (8.8-10.2); CARBON DIOXIDE LEVEL 23 MEQ/L (21-32); CHLORIDE LEVEL 109 MEQ/L (98-107); CK-MB VALUE MASS 1.6 NG/ML (<3.6); CPK CREATINE PHOSPHOKINASE 76 U/L (39-308); CREATININE FOR GFR 0.68 MG/DL (0.70-1.30); ETHYL ALCOHOL (ETHANOL) < 0.003 % (0.000-0.010); GLOMERULAR FILTRATION RATE > 60.0 (>42); GLUCOSE, FASTING 130 MG/DL (70-100); MB/CK RELATIVE INDEX 2.11 (< OR =4); POTASSIUM SERUM 4.3 MEQ/L (3.5-5.1); SODIUM LEVEL 139 MEQ/L (136-145); TOTAL PROTEIN 7.1 GM/DL (6.4-8.2); TROPONIN I < 0.02 NG/ML (< 0.10)
--- NOTE | 2020-12-26 01:25 | REPVR ---
PROCEDURE INFORMATION: Exam: CT Head Without Contrast Exam date and time: 12/25/2020 12:03 AM Age: 75 years old Clinical indication: Injury or trauma; Fall; Additional info: Altered mental status, possible fall TECHNIQUE: Imaging protocol: Computed tomography of the head without contrast. Radiation optimization: All CT scans at this facility use at least one of these dose optimization techniques: automated exposure control; mA and/or kV adjustment per patient size (includes targeted exams where dose is matched to clinical indication); or iterative reconstruction. COMPARISON: No relevant prior studies available. FINDINGS: Brain: There is no CT evidence for an acute large vessel territorial infarct. No acute intracranial hemorrhage is seen. No mass effect, midline shift, or herniation is noted. There are mild non-specific foci of low attenuation in the periventricular white matter, which are likely the sequela of chronic small vessel ischemic injury. There is a focus of low attenuation in the left lentiform nucleus, which is compatible with a chronic lacunar infarct. Cerebral ventricles: The ventricles are severely dilated in proportion to the sulci, which is compatible with severe generalized cerebral and cerebellar volume loss. Paranasal sinuses: There is severe opacification of the left maxillary sinus. The maxillary sinuses were not fully imaged. Mastoid air cells: The imaged portions of the mastoid air cells are well aerated. 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 Incidental note is made of a right lens implant. The globes and orbits are intact. Vasculature: There are atherosclerotic calcifications of the intracranial portion of the internal carotid arteries. Bones/joints: The skull is intact. No suspicious osteolytic or osteoblastic lesion. Soft tissues: Unremarkable. IMPRESSION: 1. Intact skull. No acute intracranial hemorrhage or acute intracranial abnormality. 2. Severe cerebral and cerebellar atrophy and chronic microangiopathic changes. 3. Chronic lacunar infarct involving the left basal ganglia. Electronically signed by: Dimitris Del Angel On 12/26/2020 01:25:28 AM
--- NOTE | 2020-12-26 01:25 | REPVR ---
PROCEDURE INFORMATION: Exam: CT Cervical Spine Without Contrast Exam date and time: 12/25/2020 12:03 AM Age: 75 years old Clinical indication: Injury or trauma; Fall; Additional info: Altered mental status, possible fall TECHNIQUE: Imaging protocol: Computed tomography images of the cervical spine without contrast. Radiation optimization: All CT scans at this facility use at least one of these dose optimization techniques: automated exposure control; mA and/or kV adjustment per patient size (includes targeted exams where dose is matched to clinical indication); or iterative reconstruction. COMPARISON: CT ANGIO CHEST 09/09/2016 4:08:20 PM FINDINGS: Vertebrae: There is a reversal of the normal cervical lordosis. There is no fracture or subluxation in the cervical spine. There is a chronic mild anterior wedge compression fracture of T1, which is stable compared to the CTA chest on 09/09/2016. No suspicious osteolytic or osteoblastic lesion is noted. There is no cervical rib. C2-C3: There is mild loss of disc height and mild osteoarthritis of the facet joints. no spinal canal or neural foraminal stenosis is noted. C3-C4: There is mild loss of disc height, a central protrusion, and and severe osteoarthritis of the facet joints. There is mild spinal canal stenosis and mild left neural foraminal stenosis. C4-C5: There is mild loss of disc height, intradiscal calcification, and mild osteoarthritis of the facet joints. No spinal canal or neural foraminal stenosis is noted. C5-C6: There is moderate loss of disc height, a broad-based posterior disc osteophyte complex, and endplate spurs projecting anteriorly. No spinal canal stenosis or neural foraminal stenosis is noted. The facet joints are unremarkable. C6-C7: There is moderate loss of disc height, a broad-based posterior disc osteophyte complex, left uncovertebral hypertrophy, and endplate spurs. There is moderate left neural foraminal stenosis.The facet joints are unremarkable. C7-T1: The disc height is preserved. No disc herniation, spinal canal stenosis, or neural foraminal stenosis is noted. There is moderate osteoarthritis of the right facet joint. T1-T2: The disc height is preserved. No disc herniation, spinal canal stenosis, or neural foraminal stenosis is noted. There is mild osteoarthritis of the left facet joint. Soft tissues: Incidental note is made of ossification of the ligamentum nuchae a posterior to the spinous processes C5 and C6. No soft tissue fluid collection. Nasopharynx: There are calcifications in the adenoids. Prevertebral Space: No prevertebral soft tissue swelling. Vasculature: There are atherosclerotic calcifications. Lungs: The imaged lung apices are clear. The lungs were not fully imaged. IMPRESSION: 1. No fracture or subluxation in the cervical spine. 2. Mild chronic anterior wedge compression fracture of T1, which is stable compared to the CTA chest on 09/09/2016. 3. C3-C4: Mild spinal canal stenosis and mild left neural foraminal stenosis. 4. C6-C7: Moderate left neural foraminal stenosis. Electronically signed by: Dimitris Del Angel On 12/26/2020 01:25:17 AM
[2020-12-26 04:40] LABS: RSV AMPLIFICATION NEGATIVE (NEGATIVE)
[2020-12-26] MEDS ORDERED: ISOVUE-370 76% 100ML VIAL As Ordered ONE ×2 (06:28→11:02)
--- NOTE | 2020-12-26 06:29 | HPEPDOC ---
General Date of Admission December 27, 2019 Date of Service: Dec 26, 2020 Chief Complaint The patient is a 75-year-old male admitted with a reason for visit of Alt Mental Status. History of Present Illness Mr. Benton is a 75-year-old male with Parkinson's disease and A. fib status post pacemaker who is here for syncope. Patient tells me that he follows with a new setup operator at [place]. His pacemaker was last check 3 months ago at his setup operator appointment. Patient tells me that periodically he would get lightheaded and faint. Otherwise, patient tells me that for the past couple of days, he has not been feeling well. He has nasal congestion and sneezing. He has a cough with green sputum, but otherwise denies shortness of breath. He also reported dysuria that recently started. Today, he tells me that he was doing some cleaning when he got lightheaded and fainted. Patient was brought to the ED for evaluation. Patient tested negative for Covid, RSV, and influenza. Patient has no leukocytosis. UA demonstrates mild pyuria. Urine culture pending. Otherwise, patient is a poor historian. He does not know his past medical history. He tells me that he is on Eliquis, but I do not see this on his med list or external med history. Patient will be placed in observation for syncope. Home Medications Scheduled Carbidopa/Levodopa (Carbidopa-Levo ER 25-100 Tab) 1 Each Tablet.er, 1 TAB PO QID, (Reported) Docusate Sodium (Docusate Sodium) 100 Mg Capsule, 100 MG PO BID Lisinopril (Lisinopril) 10 Mg Tablet, 10 MG PO DAILY, (Reported) Naproxen (Naproxen) 500 Mg Tablet.dr, 500 MG PO BID, (Reported) Prazosin Hcl (Prazosin HCl) 1 Mg Capsule, 1 MG PO QPM, (Reported) Scheduled PRN Oxycodone HCl (Oxycodone HCl) 5 Mg Tablet, 5 MG PO TID PRN for pain, (Reported) Allergies Coded Allergies: No Known Allergies (Unverified , 08/24/16) Past Medical History Medical History 1. Parkinson's disease 2. Atrial fibrillation 3. CAD status post stent 4. Hypertension 5. Hyperlipidemia 6. Arthritis 7. Chronic back pain Surgical History 1. Cardiac cath with stent placement 2. Pacemaker placement 3. Appendectomy 4. Left inguinal hernia repair 5. Cataract extraction Family History Patient does not know parents past medical history Social History * Smoker: Denies Alcohol: Denies Drugs: denies A-FIB/CHADSVASC A-FIB History Current/History of A-Fib/PAF?: Yes Current PO Anticoag Therapy: No Review of Systems Constitutional: Denies: Chills, Fever Eyes: Reports: Other (Reports poor vision) ENT: Reports: Sinus Congestion; Denies: Sore Throat Skin: Denies: Rash Pulmonary: Reports: Cough (Symptoms productive with green sputum); Denies: Dyspnea Cardiovascular: Reports: Lt Headedness; Denies: Chest Pain Gastrointestinal: Denies: Abdominal Pain Genitourinary: Denies: Dysuria Hematologic: Denies: Bruising Psych: Denies: Anxiety, Depression Physical Examination General Exam: Positive: Alert, Cooperative Eye Exam: Positive: EOMI; Negative: Sclera icteric ENT Exam: Positive: Atraumatic Chest Exam: Positive: Clear to auscultation Heart Exam: Positive: Rate Normal, Regular Rhythm Abdomen Exam: Positive: Normal bowel sounds, Soft, Tenderness (Diffusely tender) Extremity Exam: Negative: Edema Neuro Exam: Positive: Cranial Nerves 3-12 NL, Other (Speech is soft) Psych Exam: Positive: Mental status NL, Mood NL Vital Signs Vital Signs Date Time Temp Pulse Resp B/P (MAP) Pulse Ox O2 Delivery O2 Flow Rate FiO2 12/26/20 05:01 57 16 Room Air 12/26/20 05:00 146/69 (94) 12/26/20 04:01 93 12/26/20 00:07 98.2 Laboratory Data Labs 24H Laboratory Tests 2 12/25/20 23:57: Bedside Glucose (Misc Panel) 135H 12/26/20 00:14: Immature Granulocyte % (Auto) 0.4, Neutrophils (%) (Auto) 60.6, Lymphocytes (%) (Auto) 31.5, Monocytes (%) (Auto) 7.0, Eosinophils (%) (Auto) 0.1, Basophils (%) (Auto) 0.4, Neutrophils # (Auto) 4.9, Lymphocytes # (Auto) 2.6, Monocytes # (Auto) 0.6, Eosinophils # (Auto) 0.0, Basophils # (Auto) 0.0, Nucleated Red Blood Cells % (auto) 0.0, Anion Gap 7L, Glomerular Filtration Rate > 60.0, Osmolality 298, Lactic Acid Level 1.3, Calcium Level 9.2, Total Bilirubin 2.1H, Direct Bilirubin 0.8H, Aspartate Amino Transf (AST/SGOT) 17, Alanine Aminotransferase (ALT/SGPT) 17, Alkaline Phosphatase 98, Ammonia 24, Total Creatine Kinase 76, Creatine Kinase MB 1.6, Creatine Kinase MB Relative Index 2.11, Troponin I < 0.02, Total Protein 7.1, Albumin 3.1L, Albumin/Globulin Ratio 0.8, Thyroid Stimulating Hormone (TSH) 1.950, Ethyl Alcohol Level < 0.003 12/26/20 00:39: Urine Color LATESHA, Urine Appearance CLEAR, Urine pH 5.0, Urine Specific [place] 1.029, Urine Protein 1+H, Urine Glucose (UA) NEGATIVE, Urine Ketones NEGATIVE, Urine Blood 1+H, Urine Nitrite NEGATIVE, Urine Bilirubin 1+H, Urine Urobilinogen 4.0H, Urine Leukocyte Esterase TRACEH, Urine WBC (Auto) 12H, Urine RBC (Auto) 4H, Urine Hyaline Casts (Auto) 0, Urine Bacteria (Auto) NEGATIVE, Urine Squamous Epithelial Cells 0, Urine Mucus (Auto) SMALL, Urine Sperm (Auto) 12/26/20 03:53: Coronavirus (COVID-19)(PCR) NEGATIVE, Influenza Type A (RT-PCR) NEGATIVE, Influenza Type B (RT-PCR) NEGATIVE, Respiratory Syncytial Virus (PCR) NEGATIVE CBC/BMP Laboratory Tests 12/26/20 00:14 Microbiology Microbiology 12/26/20 Urine Culture, Received Pending 12/26/20 Blood Culture, Received Pending Assessment/Plan Mr. Benton is a 75-year-old male with Parkinson's disease and A. fib status post pacemaker who is here for syncope. Patient reports dysuria and may have a UTI. We will start patient on ceftriaxone. Pending urine culture results. Otherwise he does have a pacemaker. Patient will be monitored on telemetry and echocardiogram ordered. Patient may need his pacemaker interrogated by cardiology. Patient sees a setup operator in [place]. Of note, on physical exam patient had abdominal tenderness. He tell me is secondary to a tumor. Patient's total bilirubin was elevated. We will order a CT of the abdomen pelvis Plan / VTE VTE Prophylaxis Ordered?: Yes Plan Plan 1. Syncope Possibly secondary to autonomic dysfunction from Parkinson's disease versus arrhythmia despite pacemaker versus UTI Patient will be monitored on telemetry Orthostatic vitals daily Patient's pacemaker may need to be interrogated by cardiology Empirically start patient on antibiotics for possible UTI 2. Possible UTI Patient reports dysuria and UA demonstrates mild pyuria Ceftriaxone day 1 Pending urine cultures 3. Parkinson's disease Med rec is still not completed When med rec is complete, please resume carbidopa levodopa 4. Chronic pain When med rec is complete, please resume pain medication 5. Hypertension When med rec is complete, please resume antihypertensives 6. BPH Unsure if patient is on prazosin or doxazosin When med rec is complete, please restart medication 7. Atrial fibrillation status post pacemaker Patient says he is on a blood thinner, but I have not seen one prescribed on the external med history Patient not on any rate or rhythm control meds Monitor on telemetry 8. DVT prophylaxis SCDs and teds. Can be discontinued if patient is on a blood thinner ANA LANE DO Dec 26, 2020 06:29
[2020-12-26 07:00] VITALS: BP 180/80
--- NOTE | 2020-12-26 07:32 | REPVR ---
PROCEDURE INFORMATION: Exam: CT Abdomen And Pelvis With Contrast Exam date and time: 12/26/2020 6:37 AM Age: 75 years old Clinical indication: Other: Elevated bilirubin. Abdomianl tenderness TECHNIQUE: Imaging protocol: Computed tomography of the abdomen and pelvis with contrast. Radiation optimization: All CT scans at this facility use at least one of these dose optimization techniques: automated exposure control; mA and/or kV adjustment per patient size (includes targeted exams where dose is matched to clinical indication); or iterative reconstruction. Contrast material: ISOVUE 370; Contrast volume: 100 ml; Contrast route: INTRAVENOUS (IV); COMPARISON: CT ABD/PEL W/IV CONTRAST ONLY 03/29/2019 5:02 AM FINDINGS: Tubes, catheters and devices: There is a pacemaker in place. Pleural spaces: There is a small left pleural effusion. There is a trace right pleural effusion. There is basilar atelectasis. Heart: There is moderate cardiomegaly. Liver: No mass. Previously questioned the cirrhotic morphology. Gallbladder and bile ducts: There is been interval resolution of pneumobilia. Pancreas: Normal. No ductal dilation. Spleen: Normal. No splenomegaly. Adrenal glands: There is thickening of the left adrenal gland without a mass. Kidneys and ureters: Normal. No hydronephrosis. Stomach and bowel: There is a moderate amount of stool throughout colon. There are few diverticula of the left colon without evidence of diverticulitis. Appendix: No evidence of appendicitis. Intraperitoneal space: No free air. No significant fluid collection. Vasculature: There is athrosclerotic disease involving the abdominal aorta and pelvis vessels without an aneurysm. Lymph nodes: There are stable nonenlarged bilateral inguinal lymph nodes. Urinary bladder: Unremarkable as visualized. Reproductive: The prostate is enlarged with some central calcifications, but unchanged. Bones/joints: There are degenerative changes throughout the spine, SI joints and hips. Soft tissues: There are periumbilical and umbilical fat containing hernias. IMPRESSION: No acute intra-abdominal abnormality. Electronically signed by: Raul Cobos On 12/26/2020 07:32:26 AM
[2020-12-26] MEDS: cefTRIAXone SOD 1 GM in D5W MINI-BAG PLUS 50 ML IV SCH (08:24)
--- NOTE | 2020-12-26 11:53 | IPNPDOC ---
Text Note Date of Service The patient was seen on 12/26/20. NOTE Subjective: Patient is a 75-year-old male with Parkinson's disease and atrial fibrillation status post pacemaker who initially presented for possible syncope. I spoke with daughter this morning who states that the patient has been falling more and states that his legs appear more purple and has been complaining about an achy pain in his legs recently. Patient's daughter denies him passing out. She says that he has been following with the floor in his been needing multiple people to assist him to get up. Patient's daughter states that she went to the store and got a phone call from another family member who was at home stating that he had slipped out of the recliner again and they were unable to get him up. 911 was called and brought the patient to the emergency department. Patient states that he has been seeing dogs on the ceiling at home and believes that there is a child playing hide and seek with him in the room at this time. Patient does have a history of Parkinson's disease. Patient denies any other complaints at this time. Review of systems: General: Patient denies fevers HEENT: Patient denies headaches Cardiovascular: Patient denies chest pain Respiratory: Patient denies shortness of breath, cough GI: Patient denies abdominal pain, nausea, vomiting, diarrhea : Patient denies increased frequency or pain with urination Extremities: Patient reports some achy pain in his legs bilaterally Neurological: Patient denies numbness or tingling in legs Physical exam: Vitals: See below General: Alert and oriented male who is answering questions appropriately who was sitting up in bed when I walked in the room. Patient not appear to be in any acute distress. HEENT: Normocephalic, atraumatic, moist mucous membranes. Neck: No lymphadenopathy or thyromegaly Cardiac: Regular rate and rhythm, no murmurs, normal S1, normal S2 Pulm: Clear to auscultation bilaterally. No wheezes, rhonchi, rales Abd: Nondistended, nontender to palpation, normal bowel sounds Ext: No edema bilateral lower extremities, legs were purple in color. 1+/4 dorsalis pedis and posterior tibial pulse in the right foot, trace dorsalis pedis and posterior tibial pulse in left foot. Labs: See below Imaging: CT of the abdomen and pelvis performed with contrast on 12/26/2020 is reported to show no acute intra-abdominal abnormality. Assessment/plan: 75-year-old male with a history of Parkinson's disease and atrial fibrillation status post pacemaker who is here for multiple falls. Patient reported dysuria may have a urinary tract infection. Patient was started on ceftriaxone urine culture is pending. 1. Recurrent falls. This may be secondary to weakness secondary to her Parkinson's disease or from weakness secondary to urinary tract infection. Orthostatic vitals have been normal. Patient is on telemetry. It does not appear that the patient syncopized according to the history given to me by the daughter. Patient denies having any passing out issues but more that he fell sliding out of his recliner. 2. Diminished peripheral pulses. Patient's daughter states that the patient has been complaining of an achy pain in his legs. Patient's lactic acid is normal. CT angiogram of the legs was going to be ordered however, patient did receive IV contrast earlier today. Patient can receive this tomorrow. We will continue to monitor. 3. Possible urinary tract infection. Patient reports dysuria and the UA demonstrates mild pyuria. Continue ceftriaxone. 4. Parkinson's disease. Continue home medications at this time. 5. Chronic pain. Continue pain medication. 6. Hypertension. Patient's blood pressure has been elevated and he was given a one-time dose of lisinopril we will continue to monitor. 7. BPH. Unsure if patient is on prazosin or doxazosin. Patient was having some issues with urinary retention today. We will need to continue the medication. 8. Atrial fibrillation status post pacemaker. Patient is unsure if he is on a blood thinner. Patient does have a pacemaker that was interrogated about 3 months ago and according to the daughter there was no issues. DVT Prophylaxis: Teds and sequential Disposition: Pending clinical improvement VS,Diya, I+O VS, Diya, I+O Laboratory Tests 12/26/20 00:14 Vital Signs Date Time Temp Pulse Resp B/P (MAP) Pulse Ox O2 Delivery O2 Flow Rate FiO2 12/26/20 08:24 180/80 12/26/20 07:00 97.6 70 20 97 Room Air SEBASTIAN CEBALLOS Dec 26, 2020 11:53
--- NOTE | 2020-12-26 12:36 | REP ---
INDICATION: achy leg pain, diminished pulses L>R. COMPARISON: None. TECHNIQUE: Frontal lateral scalp image of the abdomen pelvis and lower extremities was performed. FINDINGS: There is IV contrast in the urinary bladder. The patient had a prior CT abdomen and pelvis at 6:24 a.m. the same day. Therefore, this exam was terminated. IMPRESSION: See comments in the findings. Note: It was recommended that the patient have lower extremity Doppler ultrasound and that if necessary this exam could be rescheduled. <Electronically signed by Chang Beckham > 12/26/20 [id number]
[2020-12-26 15:32] VITALS: BP 148/69
[2020-12-26 22:00] VITALS: BP 137/68
[2020-12-27 04:00] VITALS: BP 162/74
[2020-12-27] MEDS: cefTRIAXone SOD 1 GM in D5W MINI-BAG PLUS 50 ML IV SCH (05:16)
[2020-12-27 06:05] LABS: HEMATOCRIT 37.8 % (42.0-52.0); HEMOGLOBIN 13.6 g/dl (13.5-17.5); MEAN CORPUSCULAR HEMOGLOBIN 37.7 pg (27.0-33.0); MEAN CORPUSCULAR VOLUME 104.7 fl (80.0-96.0); PLATELET COUNT, AUTOMATED 164 10^3/uL (150-450); RED BLOOD COUNT 3.61 10^6/uL (4.30-6.10); WHITE BLOOD COUNT 6.1 10^3/uL (4.0-10.0)
[2020-12-27 06:39] LABS: ALBUMIN 2.7 GM/DL (3.2-5.2); ALT/SGPT 15 U/L (12-78); BILIRUBIN,TOTAL 1.6 MG/DL (0.2-1.0); BLOOD UREA NITROGEN 16 MG/DL (7-18); CALCIUM LEVEL 9.1 MG/DL (8.8-10.2); CARBON DIOXIDE LEVEL 26 MEQ/L (21-32); CHLORIDE LEVEL 108 MEQ/L (98-107); CREATININE FOR GFR 0.59 MG/DL (0.70-1.30); GLOMERULAR FILTRATION RATE > 60.0 (>42); GLUCOSE, FASTING 90 MG/DL (70-100); SODIUM LEVEL 140 MEQ/L (136-145); TOTAL PROTEIN 6.1 GM/DL (6.4-8.2)
[2020-12-27] MEDS ORDERED: ISOVUE-370 76% 100ML VIAL As Ordered ONE (07:45)
[2020-12-27 08:00] VITALS: BP 151/68
[2020-12-27] MEDS ORDERED: DOXA1TAB42 PO (08:05)
[2020-12-27] MEDS ORDERED: MELO7.5T35 PO (08:05)
[2020-12-27] MEDS ORDERED: DOCU100C16 PO (08:05)
[2020-12-27] MEDS ORDERED: HOME MED LIST COMPLETE! XX SCH (08:10)
[2020-12-27] MEDS ORDERED: DOCUSATE SODIUM 100MG CAPSULE PO PRN (09:55)
--- NOTE | 2020-12-27 11:10 | REPVR ---
PROCEDURE INFORMATION: Exam: CTA Angiogram of the Abdominal Aorta and Bilateral Lower Extremities (Run-off) With IV Contrast Exam date and time: 12/27/2020 6:00 AM Age: 75 years old Clinical indication: Other: Diminshed pulses l> R; Additional info: Diminshed pulses l> R with runoff to le b/l TECHNIQUE: Imaging protocol: CT angiogram of the abdominal aorta, pelvis and bilateral lower extremities with IV iodinated contrast. 3D rendering (Not supervised by radiologist): MIP and/or 3D reconstructed images were created by the technologist. Radiation optimization: All CT scans at this facility use at least one of these dose optimization techniques: automated exposure control; mA and/or kV adjustment per patient size (includes targeted exams where dose is matched to clinical indication); or iterative reconstruction. Contrast material: ISOVUE 370; Contrast volume: 100 ml; Contrast route: INTRAVENOUS (IV); COMPARISON: CT ANGIO ABDOMINAL ARTERIES 12/26/2020 11:10 AM FINDINGS: Aorta: Atherosclerotic changes of the thoracic aorta. For age there are mild atherosclerotic changes of the nonaneurysmal abdominal aorta. No dissection flap. No central arterial thrombus. Celiac trunk and mesenteric arteries: Mild narrowing at the origin of the celiac axis. Minimal narrowing just distal to the origin the SMA. Moderate narrowing the origin of the ZAHRA. Renal arteries: Mild narrowing the origin of the right renal artery. There are two left renal arteries with mild narrowing along the more caudad artery and moderate to severe narrowing along the origin of the most cephalad artery. Right iliac arteries: On the right, there is mild disease of the common iliac artery with minimal disease of the external and internal iliac arteries. Right femoral/popliteal arteries: Mild disease of the right femoral artery artery proximally and distally. No popliteal aneurysm on the right. Right infrapopliteal arteries: Intact trifurcation on the right with tiny, wispy vessels below the level of the knee. Only the anterior tibial artery seems to cross the level of the ankle on the right and that is quite small in caliber. Left iliac arteries: On the left, there is mild disease of the common iliac artery with minimal disease of the external and internal iliac arteries. Left femoral/popliteal arteries: Mild disease multifocal in the left femoral artery. No popliteal aneurysm on the left. Left infrapopliteal arteries: On the left, the popliteal artery does not opacify below the level of the knee. There is is poorly visualized trifurcation but that may be due to collateral flow. The vessels are small and wispy. None of the lower leg arteries seem to cross the level of the ankle. Portal Venous System: No mesenteric venous gas. Lungs: Dependent likely atelectatic changes in the right base. Atelectasis or early infiltrate in the left lung base. Pleural space: Partial visualization of a small amount of pleural fluid left base. Heart: Cardiomegaly. Liver: Nodular contour to the liver as before without focal lesions or ductal dilatation. No portal venous gas. Gallbladder and bile ducts: Collapsed gallbladder with enhancing guerrero but no stones or choledocholithiasis. Pancreas: Pancreatic atrophy. Spleen: The spleen is not enlarged. Adrenals: Mild thickening of the adrenals left greater than right as before probably due to hyperplasia. No definite focal mass. Kidneys and ureters: Bilateral renal volume loss without obvious stone or hydronephrosis. Stomach and bowel: No bowel obstruction. No pneumatosis. Perirectal fatty stranding without adjacent wall thickening looks stable. Sigmoid diverticuli without acute diverticulitis. Appendix: No evidence of appendicitis. Bladder: The urinary bladder is poorly distended. Reproductive: Enlarged and partially calcified prostate. Intraperitoneal space: Unremarkable. No free air. No significant fluid collection. Lymph nodes: A few borderline groin nodes without confluent lymphadenopathy. Bones/joints: Degenerative changes and osteopenia without acute fracture. Soft tissues: Mild anasarca changes along the body wall. Fatty umbilical and periumbilical hernias without bowel. Diffuse muscular atrophy along the body wall. Mild diffuse subcutaneous fatty stranding along the body wall. IMPRESSION: 1. Atherosclerotic changes of the aorta extending into the branch vessels. 2. Poor visualization of the arterial tree is below the level knees left more so than right. I suspect there is significant disease of the lower extremities bilaterally. 3. Nodular liver contour as before. Electronically signed by: Walter Haywood On 12/27/2020 11:09:43 AM
--- NOTE | 2020-12-27 12:09 | IPNPDOC ---
Text Note Date of Service The patient was seen on 12/27/20. NOTE Subjective: Patient is a 75-year-old male (neither lesion status post pacemaker who initially presented for possible syncope. I spoke with daughter yesterday who states the patient has been falling and states that his legs appear more purple. Patient is more awake today and is answering questions appropriately. Patient denies having any pain in his legs. Patient states he just been slipping out of the chair and has been unable to get himself back up which is what caused him to come in. When I asked him if he had any pain in his lower legs he denied this. Patient says he is otherwise feeling well today. Patient denies any visual hallucinations today. Patient does report that he was seeing dogs running on the ceiling at home and he thought he was playing hide and seek with his granddaughter yesterday but denies this happening today. Patient is otherwise feeling well today. Review of systems: General: Patient denies fevers HEENT: Patient denies headaches Cardiovascular: Patient denies chest pain Respiratory: Patient denies shortness of breath, cough GI: Patient denies abdominal pain, nausea, vomiting, diarrhea : Patient denies increased frequency or pain with urination Extremities: Patient denies swelling or pain in extremities Neurological: Patient denies numbness or tingling in legs Physical exam: Vitals: See below General: Alert and oriented male patient who was resting comfortably in bed after eating breakfast when I walked in the room. Patient did not appear to be in any acute distress. HEENT: Normocephalic, atraumatic, moist mucous membranes. Neck: No lymphadenopathy or thyromegaly Cardiac: Regular rate and rhythm, no murmurs, normal S1, normal S2 Pulm: Clear to auscultation bilaterally. No wheezes, rhonchi, rales Abd: Nondistended, nontender to palpation, normal bowel sounds Ext: No edema bilateral lower extremities, 1+/4 dorsalis pedis posterior tibial pulses in the right foot, 1/4 dorsalis pedis and posterior tibial pulse in the left foot. Patient reports equal sensation to light touch in the feet bilaterally. Legs show hemosiderin staining in the bilateral shins. Labs: See below Imaging: CT of the abdominal aorta and bilateral lower extremities (runoff) with IV contrast performed on 12/27/2020 is reported to show atherosclerotic change of the aorta extending into the branch vessels. Poor visualization of the arterial tree below the level of the knee left more so than right. I suspect there is significant disease of the lower extremities bilaterally. Nodular contour of the liver as before. Assessment/plan: 75-year-old male with a history of Parkinson's disease and atrial fibrillation status post pacemaker who has been here for multiple falls. Patient reported dysuria of urinary tract infection. Patient is on ceftriaxone at this time. 1. Recurrent falls. This may be secondary to weakness secondary to Parkinson's disease or from urinary tract infection. Orthostatic vitals have been normal. Patient is on telemetry. It does not appear the patient syncopized according to the history given to me by the patient's daughter. Patient will need to work a physical therapy and can be discharged once stable. If he continues to have difficulties, placement may be needed. 2. Diminished peripheral pulses. In speaking with the patient today, he does not complain of any pain in his legs. Patient does report sensation in his legs. I do feel peripheral pulses. CT angiogram does mention that there appears to be collaterals that have formed as the vessels are wispy according to the report. Patient will be started on Plavix and high intensity statin therapy. Lipid panel be ordered for tomorrow morning. I will touch base with vascular surgery tomorrow as we do not have coverage at this hospital at this time. If the patient begins to complain of pain in his legs, lactic acid level will be ordered. This was initially ordered 2 days ago and was normal. If the patient continues to complain of pain, further interventions can be done. 3. Possible urinary tract infection. Patient reports dysuria and UA demonstrates mild pyuria. Continue ceftriaxone. 4. Parkinson's disease. This may be worsening. It does not appear the patient has been on medication for quite some time. Patient told me today that he has not been able to get medications from his primary care provider's office as he "owes them money". I do not know the truth of this however, in speaking with our medical supervisor, it does not appear that the patient has had prescriptions filled since last year. We will continue to monitor. Patient is tremulous. 5. Chronic pain. Patient has not received any pain medication from his primary care provider since April 2020. If the patient continues to complain of pain, we can start him on pain medication. 6. Hypertension. Patient appears to be on lisinopril at home but I am unsure again if he is taking this. Lisinopril has been started. 6. BPH. Unsure if the patient is on prazosin or doxazosin however, the last medication he was given was doxazosin. We will start this medication today. 8. Atrial fibrillation status post pacemaker. Patient does not appear to be on a blood thinner. Patient does have a pacemaker that was interrogated about 3 months ago and according to the daughter there was no issues. DVT Prophylaxis: Patient will be placed on Eliquis for his atrial fibrillation at this time. Disposition: Pending clinical improvement VS,Diya, I+O VS, Diya I+O Laboratory Tests 12/27/20 05:21 Vital Signs Date Time Temp Pulse Resp B/P (MAP) Pulse Ox O2 Delivery O2 Flow Rate FiO2 12/27/20 09:18 151/68 12/27/20 08:00 97.3 60 20 100 Room Air I&O- Last 24 Hours up to 6 AM 12/27/20 06:00 Intake Total 600 ml Balance 600 ml SEBASTIAN CEBALLOS DO Dec 27, 2020 12:09
[2020-12-27] MEDS: APIXABAN 5 MG TAB (ELIQUIS) PO SCH ×2 (12:58→20:42)
[2020-12-27] MEDS: DOXAZOSIN MESYLATE 1 MG TAB PO SCH (12:58)
[2020-12-27] MEDS: ATORVASTATIN 20 MG TAB PO SCH (12:59)
[2020-12-27] MEDS: CLOPIDOGREL 75 MG TAB PO SCH (12:59)
--- NOTE | 2020-12-27 13:07 | ECHO ---
ECHOCARDIOGRAM DATE OF PROCEDURE: 12/26/2020 Age: Gender: Male Height: 185 cm Weight: 127 kg REFERRING PHYSICIAN: Los Hawkins M.D. INDICATION: Syncope. MEASUREMENTS: LV 4.2 cm IVS 1.3 cm Proximal IVS 1.9 cm LVPW 1.2 cm Aorta 3.5 cm LA 3.7 cm Mitral E wave velocity 114 E prime septal 5.1 E prime lateral 6.1 FINDINGS: This study is of acceptable technical quality. Patient is in atrial fibrillation/flutter with ventricular pacing. Left ventricle is of normal size. There is prominent left ventricular hypertrophy, especially in the septum. There is a septal wall motion abnormality most likely related to underlying pacing. Overall, left ventricular ejection fraction is estimated around 50-55%. Right ventricle is not grossly enlarged. There is severe biatrial enlargement. Aortic valve is tricuspid and it is heavily calcified and there is some restriction of cusp mobility. By 2D imaging, I would not assume more than mild aortic stenosis. There are also prominent degenerative abnormalities of mitral valve with mitral annular calcification. No limitation of leaflet motion is apparent, though. Tricuspid valve appears normal. Pulmonic valve was poorly visualized, but appears normal based on limited views. No pericardial effusion is noted. Inferior vena cava is dilated, but collapses with inspiration, indicative of likely mildly elevated central venous pressure. There is an echo artifact in the right-sided heart chamber consistent with pacemaker leads. Aortic root is normal. Aortic arch and abdominal aorta were poorly seen. Doppler interrogation of aortic valve reveals mild to moderate aortic insufficiency and mild aortic stenosis with mean gradient only 7 mmHg. There is trace mitral insufficiency and no significant mitral stenosis. Approximately mild to moderate tricuspid insufficiency was seen with calculated pulmonary artery pressure slightly above 40 mmHg, corresponding to moderate pulmonary artery hypertension. Evaluation of diastolic function is inconclusive due to underlying atrial fibrillation/flutter and ventricular pacing. CONCLUSIONS: 1. Study is of acceptable technical quality. Underlying atrial fibrillation/flutter with ventricular pacing. 2. Prominent left ventricular hypertrophy, especially in the interventricular septum with septal wall motion abnormality related to right ventricular (RV) pacing and overall left ventricular ejection fraction (LVEF) estimated 50-55%. 3. Normal right ventricle. 4. Severe biatrial enlargement. 5. Very prominent aortic sclerosis, but only minimal stenosis and mild to moderate insufficiency. 6. Very prominent degenerative abnormalities of mitral valve with no significant stenosis and mild insufficiency. 7. Mild to moderate tricuspid insufficiency. 8. Elevated central venous pressure and likely moderate pulmonary hypertension. MTDD
[2020-12-27 13:50] LABS: INR 1.32; PROTHROMBIN TIME 16.8 SECONDS (12.7-14.5)
[2020-12-27 13:51] LABS: PARTIAL THROMBOPLASTIN TIME 34.9 SECONDS (25.9-37.0)
[2020-12-27 16:00] VITALS: BP 144/70
--- NOTE | 2020-12-27 16:42 | ECGEPIP ---
[facility] - ED Test Date: 2020-12-25 Pat Name: JERSON BRYANT Department: Room: [place] [address] Gender: Male Food Service Agent: NICOLE : 1945 Requested By: WESTLEY Simeon Order Number: [id number] Reading MD: Beti Cotto Measurements Intervals [place] Rate: 93 P: [place]: QRS: 172 QRSD: 68 T: -61 QT: 184 QTc: 228 Interpretive Statements electronic ventricular pacer increased rate 09/09/16 Electronically Signed on 12-27-2020 16:42:03 EDT by Beti Cotto
[2020-12-27] MEDS: SINEMET**CR** 25/100 TABCR PO SCH ×2 (17:00→20:42)
[2020-12-27 20:00] VITALS: BP 133/63
[2020-12-27] MEDS: ACETAMINOPHEN TAB 650MG DOSE (2X325MG) PO PRN (23:18)
[2020-12-28 04:00] VITALS: BP 126/70
[2020-12-28] MEDS: cefTRIAXone SOD 1 GM in D5W MINI-BAG PLUS 50 ML IV SCH (06:03)
[2020-12-28 06:13] LABS: CHOLESTEROL RISK RATIO 3.147 (<5)
[2020-12-28 08:00] VITALS: BP 160/75
--- NOTE | 2020-12-28 09:09 | IPNPDOC ---
Text Note Date of Service The patient was seen on 12/28/20. NOTE Subjective: Patient is a 75-year-old male with atrial fibrillation status post pacemaker who initially presented with possible syncope. Based on the history I received from the patient's daughter and the patient he did not syncopized however he has been having multiple falls at home. Patient apparently has been struggling to afford medications for some time. Patient is feeling well today and does not complain of any pain or discomfort anywhere. Patient denies any pain in his legs and reports good feeling in his legs. 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 I did correct the patient stating I do not own a business in the area and the patient reiterated that he believes that I did and he see me outside the hospital. Patient is otherwise doing well. Review of systems: General: Patient denies fevers HEENT: Patient denies headaches Cardiovascular: Patient denies chest pain Respiratory: Patient denies shortness of breath, cough GI: Patient denies abdominal pain, nausea, vomiting, diarrhea : Patient denies increased frequency or pain with urination Extremities: Patient denies swelling or pain in extremities Neurological: Patient denies numbness or tingling in legs Physical exam: Vitals: See below General: Alert and oriented male patient who was sitting up in bed when I walked in. Patient did not appear to be in any acute distress. HEENT: Normocephalic, atraumatic, moist mucous membranes. Neck: No lymphadenopathy or thyromegaly Cardiac: Regular rate and rhythm, no murmurs, normal S1, normal S2 Pulm: Clear to auscultation bilaterally. No wheezes, rhonchi, rales Abd: Nondistended, nontender to palpation, normal bowel sounds Ext: No edema bilateral lower extremities, 1+/4 dorsalis pedis and posterior tibial pulses in the right foot. 1/4 dorsalis pedis and posterior tibial pulse in the left foot. Capillary refill on the right foot is about 2 to 3 seconds and is about 3 to 4 seconds on the left foot. Patient reports equal sensation light touch in both feet bilaterally. Like show hemosiderin staining bilateral shins Labs: See below Imaging: No new imaging has been performed Assessment/plan: 75-year-old male with a history of Parkinson's disease and atrial fibrillation status post pacemaker who has been having multiple falls at home. Patient reported dysuria and was tested for possible urinary tract infection. 1. Recurrent falls. Patient has a history of Parkinson's disease but has not been on medication for some time. Orthostatic vitals were normal. Echo cardiogram has been within normal range. Telemetry did not show any events. Patient's pacemaker has recently been interrogated and did not show any issues. Patient will continue to work with physical therapy at this time. Patient states he does not syncopized but simply slid out of the chair multiple times and was unable to get up. 2. Diminished peripheral pulses. Patient likely never any legs. I will reach out to vascular surgery today to see if is any further interventions that need to be done. Patient was placed on Plavix and high intensity statin yesterday. We will continue to monitor. 3. Possible urinary tract infection. Patient reports dysuria and UA demonstrates pyuria. Ceftriaxone was given for 3 days. Switch patient over to cephalexin for 2 more days. 4. Parkinson's disease. This may be worsening although patient has not been on medication for some time. It appears that the last time he received Sinemet was in December 2019. I have restarted him on this at this time. I will have PT/OT and PFS see the patient as the patient will possibly need placement. 5. Chronic pain. Patient not receive any pain medication from his primary care provider since April 2020. If patient complains of pain we can restart him on medication. Patient does not complain of any pain at this time. 6. Hypertension. Patient was restarted on lisinopril we will continue to monitor. 7. BPH. Restarted doxazosin. Continue to monitor. 8. Atrial fibrillation status post pacemaker. Patient appears to be on blood thinner in the past but may not be able to afford this was what he stopped. Restarted Eliquis at this time. Pacemaker was interrogated 3 months ago in his cardiology office and there was no issues. DVT Prophylaxis: Full anticoagulation with Eliquis Disposition: Pending clinical improvement. VS,Fishbone, I+O VS, Fishbone, I+O Vital Signs Date Time Temp Pulse Resp B/P (MAP) Pulse Ox O2 Delivery O2 Flow Rate FiO2 12/28/20 04:00 98.2 56 17 126/70 (88) 97 Room Air I&O- Last 24 Hours up to 6 AM 12/28/20 06:00 Intake Total 1260 ml Output Total 75 ml Balance 1185 ml SEBASTIAN CEBALLOS DO Dec 28, 2020 09:09
[2020-12-28] MEDS: APIXABAN 5 MG TAB (ELIQUIS) PO SCH ×2 (09:11→21:19)
[2020-12-28] MEDS: SINEMET**CR** 25/100 TABCR PO SCH ×4 (09:11→21:19)
[2020-12-28] MEDS: ATORVASTATIN 20 MG TAB PO SCH (09:11)
[2020-12-28] MEDS: CLOPIDOGREL 75 MG TAB PO SCH (09:11)
[2020-12-28] MEDS: CEPHALEXIN 250MG CAPSULE PO SCH ×4 (09:11→21:19)
[2020-12-28] MEDS: DOXAZOSIN MESYLATE 1 MG TAB PO SCH (09:11)
--- NOTE | 2020-12-28 15:56 | REP ---
INDICATION: leg pain, r/o DVT. COMPARISON: None. TECHNIQUE: Bilateral lower extremity duplex venous scanning is performed from the groin to the ankle level. FINDINGS: The deep veins are anechoic and fully compressible from the groin to the popliteal fossa in the left and right lower extremity. Color flow imaging is homogeneous. Spectral Doppler interrogation demonstrates intact respiratory variation in flow and normal manual augmentation of flow. There is no evidence of deep vein thrombosis in the femoropopliteal veins. The calf veins could not be visualized due to edema and patient body habitus. IMPRESSION: No evidence of DVT in the femoropopliteal veins <Electronically signed by Mark Reece > 12/28/20 1938
[2020-12-28 16:00] VITALS: BP 122/66
--- NOTE | 2020-12-28 16:15 | REP ---
INDICATION: Diminished pulses, CTA unable to see vessel below knees b/l COMPARISON: CT 12/27/2020. TECHNIQUE: Real time cline scale and Duplex Doppler evaluation of the bilateral lower extremity arterial vasculature using linear high frequency transducer. FINDINGS: Cline scale and duplex doppler images demonstrate mild plaquing proximally in the lower extremities, with moderate to severe plaquing in the lower legs bilaterally. There is significantly decreased flow in the distal right anterior tibial artery. There is occlusion of the left popliteal artery with reconstitution of the distal popliteal artery. There is occlusion of the proximal left posterior tibial artery with reconstitution in the mid aspect. Triphasic and biphasic waveforms are seen bilaterally, except for monophasic waveforms distal to the left popliteal artery. Peak systolic velocities (cm/sec) Common femoral artery: Right 94; Left 101 Profunda femoris: Right 92; Left 75 SFA (proximal): Right 105; Left 105 SFA (mid): Right 72; Left 56 SFA (distal): Right 60; Left 35 Popliteal artery: Right 52; Left occluded/reversed JC (prox.): Right 56; Left 13 Tibioperoneal trunk: Right 82; Left 20 REGROOVER (prox.): Right 81; Left occluded REGROOVER (distal): Right 106; Left 9 JC (distal): Right 16; Left 14 IMPRESSION: Moderate to severe plaquing in the lower legs bilaterally. Significantly decreased flow in the distal right anterior tibial artery. There is occlusion of the left popliteal artery with reconstitution of the distal popliteal artery. There is occlusion of the proximal left posterior tibial artery with reconstitution in the mid aspect. <Electronically signed by Ayden Cline > 12/28/20 2110
[2020-12-28 22:00] VITALS: BP 148/73
[2020-12-29 06:38] LABS: BLOOD UREA NITROGEN 14 MG/DL (7-18); CALCIUM LEVEL 9.3 MG/DL (8.8-10.2); CARBON DIOXIDE LEVEL 27 MEQ/L (21-32); CHLORIDE LEVEL 107 MEQ/L (98-107); CREATININE FOR GFR 0.56 MG/DL (0.70-1.30); GLOMERULAR FILTRATION RATE > 60.0 (>42); GLUCOSE, FASTING 92 MG/DL (70-100); MAGNESIUM LEVEL 2.2 MG/DL (1.8-2.4); POTASSIUM SERUM 4.2 MEQ/L (3.5-5.1); SODIUM LEVEL 139 MEQ/L (136-145)
[2020-12-29 06:44] LABS: HEMATOCRIT 43.2 % (42.0-52.0); MEAN CORPUSCULAR HEMOGLOBIN 32.9 pg (27.0-33.0); MEAN CORPUSCULAR HGB CONC 32.4 g/dl (32.0-36.5); MEAN CORPUSCULAR VOLUME 101.6 fl (80.0-96.0); PLATELET COUNT, AUTOMATED 161 10^3/uL (150-450); RED BLOOD COUNT 4.25 10^6/uL (4.30-6.10); WHITE BLOOD COUNT 6.3 10^3/uL (4.0-10.0)
[2020-12-29 06:46] VITALS: BP 164/80
[2020-12-29] MEDS: ASPIRIN 81MG ENTERIC TABLET PO SCH (08:37)
[2020-12-29] MEDS: ATORVASTATIN 20 MG TAB PO SCH (08:37)
[2020-12-29] MEDS: SINEMET**CR** 25/100 TABCR PO SCH ×4 (08:37→21:17)
[2020-12-29] MEDS: CEPHALEXIN 250MG CAPSULE PO SCH ×4 (08:40→21:17)
[2020-12-29] MEDS: APIXABAN 5 MG TAB (ELIQUIS) PO SCH ×2 (08:41→21:17)
[2020-12-29] MEDS: DOXAZOSIN MESYLATE 1 MG TAB PO SCH (08:45)
--- NOTE | 2020-12-29 13:54 | IPNPDOC ---
Text Note Date of Service The patient was seen on 12/29/20. NOTE Subjective: Patient is a 75-year-old male with history of atrial fibrillation status post pacemaker who initially presented with possible syncope. Patient history I was able to gather from the patient's daughter and the patient, he did not syncopized however he has been falling multiple times at home. Patient has been struggling to afford his medications for some time. Patient states he is feeling well today however, he does appear confused talking about how he has been multiple places throughout the room. Patient does have a history of Parkinson's disease which has not been treated as he had not been getting his medications. Patient denies any pain at this time and is doing well. Review of systems: General: Patient denies fevers HEENT: Patient denies headaches Cardiovascular: Patient denies chest pain Respiratory: Patient denies shortness of breath, cough GI: Patient denies abdominal pain, nausea, vomiting, diarrhea : Patient denies increased frequency or pain with urination Extremities: Patient denies swelling or pain in extremities Neurological: Patient denies numbness or tingling in legs Physical exam: Vitals: See below General: Alert and minimally oriented male patient who was sitting up in bed when I walked in. Patient not appear to be in any acute distress. HEENT: Normocephalic, atraumatic, moist mucous membranes. Neck: No lymphadenopathy or thyromegaly Cardiac: Regular rate and rhythm, no murmurs, normal S1, normal S2 Pulm: Clear to auscultation bilaterally. No wheezes, rhonchi, rales Abd: Nondistended, nontender to palpation, normal bowel sounds Ext: No edema bilateral lower extremities 1+/4 dorsalis pedis and posterior tibial pulse on the right foot. 1/4 to cells pedis posterior tibial pulses in the left foot. Capillary refill on the right foot about 2 to 3 seconds and is about 3 to 4 seconds of the left foot. Patient reports he was sensation light touch in both feet bilaterally. Skin shows hemosiderin staining in bilateral shins. Labs: See below Imaging: Bilateral duplex lower extremity venous ultrasound performed on 12/28/2020 was reported to show no evidence of DVT in the femoral-popliteal veins. Bilateral lower extremity arterial ultrasound performed on 12/28/2020 is reported to show moderate to severe plaquing of the lower legs bilaterally. Significantly decreased flow in the distal right anterior tibial artery. There is occlusion of the left popliteal artery with reconstitution of the distal popliteal artery. There is occlusion of the proximal left posterior tibial artery with reconstitution in the mid aspect Assessment/plan: 75-year-old male with history of Parkinson disease atrial fibrillation status post pacemaker who has been having multiple falls at home. Patient reported dysuria and was tested positive for urinary tract infection 1. Recurrent falls. Patient will need to continue work with PT. Patient has a history of heart disease and does not seem to be on medication for some time. Orthostatic vitals were normal. Echocardiogram did not show any reason for the patient's syncope. Patient's telemetry was within normal range is been discontinued at this time. Patient does have a pacemaker which was interrogated about 3 months ago and was normal according to the family. Patient will need to continue to work with physical therapy. 2. Diminished peripheral pulses. Patient likely has peripheral vascular disease. Patient was switched to aspirin and atorvastatin. Patient can follow- up with outpatient vascular surgery. 3. Possible urinary tract infection. Patient reported dysuria and UA demonstrated mild pyuria. Patient will receive 1 more day of cephalexin. 4. Parkinson's disease. This may be worsening although the patient has not been on medication for some time. It appears that the patient last received Sinemet in December 2019. This is been restarted at this time. Patient will have PT/OT and PFS see the patient. ARU screen place. 5. Chronic pain. Patient's not received any pain medication from primary care provider since April 2020. Patient complains of pain we can restart him on medication. Patient does not complain of any pain at this time. 6. Hypertension. Patient was restarted on lisinopril we will continue to monitor. 7. BPH. Restarted doxazosin. Continue to monitor. 8. A. fib lesion status post pacemaker. Patient appeared to be on blood thinners in the past but may not have been able to afford this. Restarted E liquis at this time. Pacemaker was interrogated 3 months ago in his cardiology office and there was no issue. DVT Prophylaxis: Full anticoagulation with Eliquis Disposition: Pending physical therapy and either home with 24/7 care or SNF. Pending ARU screen VS,[place], I+O VS, Fishbone, I+O Laboratory Tests 12/29/20 05:40 Vital Signs Date Time Temp Pulse Resp B/P (MAP) Pulse Ox O2 Delivery O2 Flow Rate FiO2 12/29/20 08:45 111/68 12/29/20 06:46 97.4 80 18 97 Room Air I&O- Last 24 Hours up to 6 AM 12/29/20 06:00 Intake Total 220 ml Output Total 0 ml Balance 220 ml SEBASTIAN CEBALLOS DO Dec 29, 2020 13:54
[2020-12-29] MEDS: SIMETHICONE 80MG CHEW TAB PO PRN (13:58)
[2020-12-29 14:00] VITALS: BP 141/81
[2020-12-29] MEDS: ACETAMINOPHEN TAB 650MG DOSE (2X325MG) PO PRN (21:18)
[2020-12-29 22:00] VITALS: BP 145/80
[2020-12-30 06:00] VITALS: BP 178/84
[2020-12-30] MEDS: **hydrALAZINE** 10 MG TAB PO SCH (06:57)
--- NOTE | 2020-12-30 08:50 | IPNPDOC ---
Subjective Date Seen The patient was seen on 12/30/20. Subjective Chief Complaint/HPI This is a 75 y/o male with a pmh of a-fib s/p pacer placement, parkinsonism, htn and bph who presented to our ED for suspected syncope however communication with family has revealed it was in fact repeated falls. Patient was apparently unable to afford medications, including those for his parkinson's, and was thus struggling with ambulation. As of my exam of patient, he tells me that he feels good, but states that pt is going "slow." Patient states that somedays he is still unable to stand under his own power and feels weak. Patient tells me that his tremors are still bothering him significantly despite his carbidopa/levodopa qid. Patient tells me that he has no new medical complaints. Please refer to ROS. General: Denies: Chills, Night Sweats Constitutional: Reports: Weakness; Denies: Fever, Night Sweats Eyes: Denies: Vision change ENT: Reports: Other Symptoms (hoarseness); Denies: Head Aches Skin: Denies: Rash, Lesions Pulmonary: Denies: Dyspnea, Cough Cardiovascular: Denies: Chest Pain, Palpitations Gastrointestinal: Denies: Nausea, Vomiting, Abdominal Pain, Diarrhea, Constipation Genitourinary: Denies: Dysuria Hematologic: Denies: Bruising Musculoskeletal: Denies: Back Pain, Joint Pain Neurological: Reports: Weakness Psych: Reports: Mood Normal Objective Physical Examination General Exam: Positive: Alert, Cooperative, No Acute Distress Eye Exam: Positive: EOMI; Negative: Sclera icteric ENT Exam: Positive: Atraumatic, Mucous membr. moist/pink Chest Exam: Positive: Clear to auscultation Heart Exam: Positive: Rate Normal, Regular Rhythm; Negative: Murmurs, Rubs Abdomen Exam: Positive: Soft; Negative: Tenderness Extremity Exam: Negative: Edema Neuro Exam: Positive: Other (Speech is soft) Psych Exam: Positive: Mental status NL, Mood NL, Oriented x 3 Assessment /Plan Assessment This is a 75 y/o male with a pmh of a-fib s/p pacer placement, parkinsonism, htn and bph who presented to our ED for suspected syncope however communication with family has revealed it was in fact repeated falls. Patient was apparently unable to afford medications, including those for his parkinson's, and was thus struggling with ambulation. Plan/VTE VTE Prophylaxis Ordered?: Yes Plan 1. Recurrent falls - 2/2 deconditioning and parkinsonism - syncope workup negative including ct head, echo, orthostats - continue working with PT - aru screen placed, awaiting placement 2. UTI - pt initially c/o dysuria and had +ua - pt will finish course of abx with kephlex today 3. PVD - patient found to have diminished peripheral pulses - duplex us negative - f/u outpatient 4. Parkinsonism - continue levodopa/carbidopa 5. HTN - continue lisinopril 6. BPH - continue doxazosin 7. A-fib s/p pacer - telemetry was unremarkable and thus dc'ed - continue eliquis DVT prophylaxis - pt on eliquis Disposition To ARU pending insurance prior authorization VS, I&O, 24H, Fishbone Vital Signs/I&O Vital Signs Date Time Temp Pulse Resp B/P (MAP) Pulse Ox O2 Delivery O2 Flow Rate FiO2 12/30/20 06:57 178/84 12/30/20 06:00 97.6 81 19 100 Room Air I&O- Last 24 Hours up to 6 AM 12/30/20 06:00 Intake Total 1480 ml Output Total 200 ml Balance 1280 ml Laboratory Data Microbiology Microbiology 12/26/20 Blood Culture - Preliminary, Resulted No Growth after 72 hours. All specime... 12/26/20 Urine Culture - Final, Complete 12/26/20 Blood Culture - Preliminary, Resulted No Growth after 72 hours. All specime... ARACELI SARMIENTO Dec 30, 2020 08:50
[2020-12-30] MEDS: ASPIRIN 81MG ENTERIC TABLET PO SCH (08:56)
[2020-12-30] MEDS: ATORVASTATIN 20 MG TAB PO SCH (08:57)
[2020-12-30] MEDS: APIXABAN 5 MG TAB (ELIQUIS) PO SCH ×2 (08:57→21:09)
[2020-12-30] MEDS: SINEMET**CR** 25/100 TABCR PO SCH ×4 (08:57→21:09)
[2020-12-30] MEDS: DOXAZOSIN MESYLATE 1 MG TAB PO SCH (08:58)
[2020-12-30 09:23] LABS: HEMATOCRIT 37.9 % (42.0-52.0); HEMOGLOBIN 13.5 g/dl (13.5-17.5); MEAN CORPUSCULAR HEMOGLOBIN 37.8 pg (27.0-33.0); MEAN CORPUSCULAR HGB CONC 35.6 g/dl (32.0-36.5); MEAN CORPUSCULAR VOLUME 106.2 fl (80.0-96.0); PLATELET COUNT, AUTOMATED 177 10^3/uL (150-450); RED BLOOD COUNT 3.57 10^6/uL (4.30-6.10); WHITE BLOOD COUNT 6.1 10^3/uL (4.0-10.0)
[2020-12-30 09:52] LABS: BLOOD UREA NITROGEN 13 MG/DL (7-18); CALCIUM LEVEL 9.3 MG/DL (8.8-10.2); CARBON DIOXIDE LEVEL 28 MEQ/L (21-32); CHLORIDE LEVEL 107 MEQ/L (98-107); GLOMERULAR FILTRATION RATE > 60.0 (>42); GLUCOSE, FASTING 112 MG/DL (70-100); MAGNESIUM LEVEL 2.3 MG/DL (1.8-2.4); POTASSIUM SERUM 4.1 MEQ/L (3.5-5.1); SODIUM LEVEL 139 MEQ/L (136-145)
[2020-12-30 14:00] VITALS: BP 100/60
[2020-12-30] MEDS: ACETAMINOPHEN TAB 650MG DOSE (2X325MG) PO PRN (15:59)
[2020-12-30 20:37] VITALS: BP 135/77
[2020-12-31 05:11] VITALS: BP 173/83
[2020-12-31 07:13] LABS: HEMATOCRIT 42.1 % (42.0-52.0); HEMOGLOBIN 13.8 g/dl (13.5-17.5); MEAN CORPUSCULAR HGB CONC 32.8 g/dl (32.0-36.5); MEAN CORPUSCULAR VOLUME 100.7 fl (80.0-96.0); PLATELET COUNT, AUTOMATED 166 10^3/uL (150-450); RED BLOOD COUNT 4.18 10^6/uL (4.30-6.10); WHITE BLOOD COUNT 6.8 10^3/uL (4.0-10.0)
[2020-12-31 07:21] LABS: BLOOD UREA NITROGEN 16 MG/DL (7-18); CALCIUM LEVEL 9.2 MG/DL (8.8-10.2); CARBON DIOXIDE LEVEL 27 MEQ/L (21-32); CHLORIDE LEVEL 109 MEQ/L (98-107); CREATININE FOR GFR 0.57 MG/DL (0.70-1.30); GLOMERULAR FILTRATION RATE > 60.0 (>42); GLUCOSE, FASTING 86 MG/DL (70-100); MAGNESIUM LEVEL 2.2 MG/DL (1.8-2.4); POTASSIUM SERUM 4.5 MEQ/L (3.5-5.1); SODIUM LEVEL 139 MEQ/L (136-145)
[2020-12-31] MEDS: SIMETHICONE 80MG CHEW TAB PO PRN (09:21)
[2020-12-31] MEDS: ACETAMINOPHEN TAB 650MG DOSE (2X325MG) PO PRN (09:21)
[2020-12-31] MEDS: ATORVASTATIN 20 MG TAB PO SCH (09:22)
[2020-12-31] MEDS: SINEMET**CR** 25/100 TABCR PO SCH ×4 (09:22→20:03)
[2020-12-31] MEDS: DOXAZOSIN MESYLATE 1 MG TAB PO SCH (09:22)
[2020-12-31] MEDS: APIXABAN 5 MG TAB (ELIQUIS) PO SCH ×2 (09:22→20:03)
[2020-12-31] MEDS: ASPIRIN 81MG ENTERIC TABLET PO SCH (09:23)
[2020-12-31] MEDS: **hydrALAZINE** 10 MG TAB PO SCH (09:23)
--- NOTE | 2020-12-31 10:38 | IPN ---
PROGRESS NOTE DATE: 12/31/2020 SUBJECTIVE: Buzz is seen on [facility]. He was admitted with repeated falls, history of Parkinson's with dementia, inability to afford medications, inability to care for himself at home. He is currently being screened for ARU. OBJECTIVE: Afebrile. Vital signs are stable. I note his blood pressure is labile, this is common with advanced Parkinson's. Systolic pressures are ranging from 100 to 170. It is best to follow the average blood pressure in these circumstances. Lungs are clear. Heart: Regular rhythm. Abdomen is soft, nontender. He has a Parkinsonian tremor. He does not answer any questions for me today. LABORATORY DATA: CBC: White count is 6.8, hemoglobin is 13, platelets 166,000, sodium 139, potassium 4.5, BUN 16, creatinine 0.6, glucose 86. IMPRESSION: 1. Frequent falls probably from his Parkinson's, noncompliance with medications. ARU screen has been placed. He is getting Physical Therapy. 2. ? UTI. Carries a diagnosis on his chart of a UTI but his urine culture was negative. He was on Keflex which has been discontinued. 3. Hypertension. He has labile blood pressures, common with endstage Parkinson's disease and the autonomic dysfunction with that, would not aggressively treat elevated blood pressures as that is liable to lead to hypotension following doses of meds. I also note he is on hydralazine just once a day which is not appropriate prescribing this medication which has about a six to eight hour duration of effectiveness. We will discontinue this. 4. Atrial fibrillation, he is on Eliquis. His rate is controlled. 5. History of BPH. He is on Doxazosin both for his hypertension (poor antihypertensive medicine) and his BPH. 6. Hyperlipidemia, continue his atorvastatin 40 mg daily.
[2020-12-31 14:00] VITALS: BP 161/86
[2020-12-31 22:00] VITALS: BP 109/67
[2021-01-01 06:00] VITALS: BP 167/84
[2021-01-01] MEDS: APIXABAN 5 MG TAB (ELIQUIS) PO SCH ×2 (09:34→20:03)
[2021-01-01] MEDS: DOXAZOSIN MESYLATE 1 MG TAB PO SCH (09:36)
[2021-01-01] MEDS: SINEMET**CR** 25/100 TABCR PO SCH ×4 (09:37→20:03)
[2021-01-01] MEDS: ATORVASTATIN 20 MG TAB PO SCH (09:37)
[2021-01-01] MEDS: ASPIRIN 81MG ENTERIC TABLET PO SCH (09:38)
[2021-01-01 10:25] LABS: HEMATOCRIT 41.9 % (42.0-52.0); HEMOGLOBIN 13.4 g/dl (13.5-17.5); MEAN CORPUSCULAR HEMOGLOBIN 32.5 pg (27.0-33.0); MEAN CORPUSCULAR VOLUME 101.7 fl (80.0-96.0); PLATELET COUNT, AUTOMATED 197 10^3/uL (150-450); RED BLOOD COUNT 4.12 10^6/uL (4.30-6.10); WHITE BLOOD COUNT 6.7 10^3/uL (4.0-10.0)
[2021-01-01 10:31] LABS: BLOOD UREA NITROGEN 17 MG/DL (7-18); CALCIUM LEVEL 9.5 MG/DL (8.8-10.2); CARBON DIOXIDE LEVEL 26 MEQ/L (21-32); CHLORIDE LEVEL 107 MEQ/L (98-107); CREATININE FOR GFR 0.62 MG/DL (0.70-1.30); GLOMERULAR FILTRATION RATE > 60.0 (>42); GLUCOSE, FASTING 113 MG/DL (70-100); MAGNESIUM LEVEL 2.2 MG/DL (1.8-2.4); POTASSIUM SERUM 4.6 MEQ/L (3.5-5.1); SODIUM LEVEL 139 MEQ/L (136-145)
--- NOTE | 2021-01-01 10:36 | IPN ---
PROGRESS NOTE DATE: 01/01/2021 SUBJECTIVE: Lexa is here for his falls, noncompliant with Parkinson's therapy. Need for placement. He has labile blood pressures from his end-stage Parkinson's and autonomic dysfunction. History of atrial fibrillation on anticoagulant therapy with Eliquis. Denies any specific complaints today, specifically there are no chest pains or shortness of breath. PHYSICAL EXAMINATION: Afebrile. Vital signs: Systolic pressure is between 109 and 167, heart rate 82. Lungs: Clear. Heart: Regular rate and rhythm, rate around 70. Abdomen: Soft, nontender, no masses. Trace peripheral edema. He has Parkinsonian tremor. LABORATORY: No labs are back today at 9 a.m. IMPRESSION: 1. Frequent falls. Physical therapy is seeing him. He is back on his Parkinson's medications with enforced compliance. He has short-term rehab placement is planned. 2. Hypertension. He has once daily hydralazine ordered, which does not fit the pharmakinetics of that medication. He is on lisinopril 10 mg daily. I would add low dose amlodipine. 2.5 mg daily, adjusting dose up as needed.
[2021-01-01 14:00] VITALS: BP 145/100
[2021-01-01 22:00] VITALS: BP 149/89
[2021-01-02 06:00] VITALS: BP 143/81
[2021-01-02 06:44] LABS: HEMATOCRIT 40.8 % (42.0-52.0); HEMOGLOBIN 14.5 g/dl (13.5-17.5); MEAN CORPUSCULAR HEMOGLOBIN 37.7 pg (27.0-33.0); MEAN CORPUSCULAR HGB CONC 35.5 g/dl (32.0-36.5); PLATELET COUNT, AUTOMATED 219 10^3/uL (150-450); RED BLOOD COUNT 3.85 10^6/uL (4.30-6.10); WHITE BLOOD COUNT 7.2 10^3/uL (4.0-10.0)
[2021-01-02 07:13] LABS: BLOOD UREA NITROGEN 14 MG/DL (7-18); CALCIUM LEVEL 9.6 MG/DL (8.8-10.2); CARBON DIOXIDE LEVEL 28 MEQ/L (21-32); CHLORIDE LEVEL 106 MEQ/L (98-107); CREATININE FOR GFR 0.61 MG/DL (0.70-1.30); GLOMERULAR FILTRATION RATE > 60.0 (>42); GLUCOSE, FASTING 88 MG/DL (70-100); MAGNESIUM LEVEL 2.2 MG/DL (1.8-2.4); POTASSIUM SERUM 4.7 MEQ/L (3.5-5.1); SODIUM LEVEL 137 MEQ/L (136-145)
[2021-01-02] MEDS: DOXAZOSIN MESYLATE 1 MG TAB PO SCH (09:46)
[2021-01-02] MEDS: ASPIRIN 81MG ENTERIC TABLET PO SCH (09:46)
[2021-01-02] MEDS: ATORVASTATIN 20 MG TAB PO SCH (09:46)
[2021-01-02] MEDS: SINEMET**CR** 25/100 TABCR PO SCH ×4 (09:47→19:59)
[2021-01-02] MEDS: APIXABAN 5 MG TAB (ELIQUIS) PO SCH ×2 (09:48→19:59)
[2021-01-02 14:00] VITALS: BP 108/79
--- NOTE | 2021-01-02 15:02 | IPN ---
PROGRESS NOTE DATE: 01/02/2021 SUBJECTIVE: Lexa is doing well, really no change today. Blood pressure is well controlled. Blood pressures are labile. Tremor seems a little worse PHYSICAL EXAMINATION: Vital signs stable. Lungs clear. Heart regular rhythm. Abdomen soft, nontender. Same tremor as before. LABORATORY DATA: CBC, BMP unremarkable and unchanged. IMPRESSION: 1. He is medically stable. We need to decide on his disposition tomorrow when PFS is back. 2. Hypertension: Blood pressure is under better control. Restarted low dose Amlodipine yesterday.
[2021-01-02] MEDS: ACETAMINOPHEN TAB 650MG DOSE (2X325MG) PO PRN (19:59)
[2021-01-02 22:00] VITALS: BP 110/56
[2021-01-03 06:00] VITALS: BP 133/75
[2021-01-03 07:05] LABS: HEMATOCRIT 43.7 % (42.0-52.0); HEMOGLOBIN 14.2 g/dl (13.5-17.5); MEAN CORPUSCULAR HEMOGLOBIN 33.7 pg (27.0-33.0); MEAN CORPUSCULAR HGB CONC 32.5 g/dl (32.0-36.5); MEAN CORPUSCULAR VOLUME 103.8 fl (80.0-96.0); PLATELET COUNT, AUTOMATED 224 10^3/uL (150-450); RED BLOOD COUNT 4.21 10^6/uL (4.30-6.10); WHITE BLOOD COUNT 6.6 10^3/uL (4.0-10.0)
[2021-01-03 07:29] LABS: BLOOD UREA NITROGEN 19 MG/DL (7-18); CALCIUM LEVEL 9.5 MG/DL (8.8-10.2); CARBON DIOXIDE LEVEL 30 MEQ/L (21-32); CHLORIDE LEVEL 107 MEQ/L (98-107); CREATININE FOR GFR 0.66 MG/DL (0.70-1.30); GLOMERULAR FILTRATION RATE > 60.0 (>42); GLUCOSE, FASTING 93 MG/DL (70-100); MAGNESIUM LEVEL 2.3 MG/DL (1.8-2.4); POTASSIUM SERUM 4.8 MEQ/L (3.5-5.1); SODIUM LEVEL 140 MEQ/L (136-145)
[2021-01-03] MEDS: ASPIRIN 81MG ENTERIC TABLET PO SCH (09:34)
[2021-01-03] MEDS: APIXABAN 5 MG TAB (ELIQUIS) PO SCH ×2 (09:34→21:28)
[2021-01-03] MEDS: ATORVASTATIN 20 MG TAB PO SCH (09:34)
[2021-01-03] MEDS: DOXAZOSIN MESYLATE 1 MG TAB PO SCH (09:35)
[2021-01-03] MEDS: SINEMET**CR** 25/100 TABCR PO SCH ×4 (09:35→21:28)
--- NOTE | 2021-01-03 11:16 | IPN ---
PROGRESS NOTE DATE: 01/03/2021 SUBJECTIVE: Buzz is seen on [facility]. No change in his clinical status. OBJECTIVE: VITAL SIGNS: Blood pressure 133/75, (blood pressures are labile, systolic pressure between 100 and 170). GENERAL APPEARANCE: He is alert and conversant. LUNGS: Clear. HEART: Regular rate and rhythm. ABDOMEN: Soft, nontender. No masses. EXTREMITIES: No peripheral edema. NEUROLOGIC: Parkinsonism tremor. Moves arms and legs with equal strength. LABS: White count 6.6, hemoglobin 14.2, platelets 224. Sodium 140, potassium 4.8, BUN 19, creatinine 0.6, glucose 93. IMPRESSION AND PLAN: 1. Frequent falls secondary to noncompliance with Parkinson's therapy. His stability is better since he has been on enforced regimen. At this point it is a disposition issue. ARU versus short-term rehab. 2. Hypertension. Labile blood pressures. They are under adequate control on his current regimen. 3. Atrial fibrillation. Rate is controlled. He is on Eliquis for DVT prophylaxis. 4. History of BPH. He takes doxazosin for his BPH.
[2021-01-03 20:12] VITALS: BP 106/58
[2021-01-04 05:19] VITALS: BP 166/56
[2021-01-04 06:45] LABS: BLOOD UREA NITROGEN 25 MG/DL (7-18); CALCIUM LEVEL 9.7 MG/DL (8.8-10.2); CARBON DIOXIDE LEVEL 27 MEQ/L (21-32); CHLORIDE LEVEL 106 MEQ/L (98-107); CREATININE FOR GFR 0.66 MG/DL (0.70-1.30); GLOMERULAR FILTRATION RATE > 60.0 (>42); GLUCOSE, FASTING 86 MG/DL (70-100); HEMATOCRIT 44.7 % (42.0-52.0); HEMOGLOBIN 14.4 g/dl (13.5-17.5); MAGNESIUM LEVEL 2.2 MG/DL (1.8-2.4); MEAN CORPUSCULAR HEMOGLOBIN 32.8 pg (27.0-33.0); MEAN CORPUSCULAR VOLUME 101.8 fl (80.0-96.0); PLATELET COUNT, AUTOMATED 197 10^3/uL (150-450); POTASSIUM SERUM 4.5 MEQ/L (3.5-5.1); RED BLOOD COUNT 4.39 10^6/uL (4.30-6.10); SODIUM LEVEL 139 MEQ/L (136-145); WHITE BLOOD COUNT 7.8 10^3/uL (4.0-10.0)
[2021-01-04 06:49] LABS: MEAN CORPUSCULAR HGB CONC 32.2 g/dl (32.0-36.5)
[2021-01-04] MEDS: ASPIRIN 81MG ENTERIC TABLET PO SCH (09:31)
[2021-01-04] MEDS: DOXAZOSIN MESYLATE 1 MG TAB PO SCH (09:33)
[2021-01-04] MEDS: SINEMET**CR** 25/100 TABCR PO SCH ×4 (09:33→20:10)
[2021-01-04] MEDS: APIXABAN 5 MG TAB (ELIQUIS) PO SCH ×2 (09:34→20:10)
[2021-01-04] MEDS: ATORVASTATIN 20 MG TAB PO SCH (09:34)
--- NOTE | 2021-01-04 13:58 | IPNPDOC ---
Date Seen The patient was seen on 01/04/21. Progress Note SUBJECTIVE: Patient was seen and examined at bedside. Doing well. No acute events overnight. Appears alert and oriented to person place. Ate breakfast without issues. States that he is voiding well. Has any fever chills nausea vomiting diarrhea shortness of breath palpitations or chest pain. OBJECTIVE PHYSICAL EXAMINATION: VITAL SIGNS: please see below General: NAD, comfortable HEENT: PERRLA, EOMI, sclerae clear Neck: supple, normal ROM, no JVD Respiratory: lungs CTAB, no wheeze, no rales, no crackles CVS: RRR, normal S1, S2, no murmurs Abdo: soft, no masses, no hepatosplenomegaly, BS+, no rebound tenderness Extremities: no edema, pulses 2+ MSK: no joint deformities, normal ROM Neuro: no focal neuro deficits, moving all 4 extremities, CN2-12 intact. Strength 5/5 in all 4 extremities. No nystagmus. Psych: calm, cooperative, AAO x 3 LABORATORY DATA, IMAGING STUDIES, MICROBIOLOGY: Please see below. ECHO 12/26/20: 1. Study is of acceptable technical quality. Underlying atrial fibrillation with flutter with ventricular pacing. 2. Prominent left ventricular hypertrophy, especially in the interventricular septum with septal wall motion abnormality related to right ventricular (RV) pacing and overall left ventricular ejection fraction (LVEF) estimated 50-55%. 3. Normal right ventricle. 4. Severe biatrial enlargement. 5. Very prominent aortic sclerosis, but only minimal stenosis and mild to moderate insufficiency. 6. Very prominent degenerative abnormalities of mitral valve with no significant stenosis and mild insufficiency. 7. Mild to moderate tricuspid insufficiency. 8. Elevated central venous pressure and likely moderate pulmonary hypertension. DVT prophylaxis ordered?: Yes on Eliquis ASSESSMENT AND PLAN: 5-year-old male with a past medical history of atrial fibrillation with a pacemaker, parkinsonism, hypertension and BPH presented to [facility] ER for syncopal episode. Patient has been medically cleared but we are unable to contact family in order to take the patient home. Police were called to check on the family at home who assured them that they will be contacting the hospital. I had a discussion with Elvira FERREIRA. [place] letter is being sent to family. Patient will be transferred to [facility] status at this point as be arranged for discharge plan. PROBLEMS: Frequent falls secondary to noncompliance with Parkinson's therapy: Patient has improved in a controlled environment. Medication compliance improved as he is monitored by nurses. Disposition pending once we are able to communicate with family. Continue with carbidopa-levodopa. Hypertension, continue present regimen. Amlodipine 2.5 mg daily. Lisinopril 10 mg daily. Atrial fibrillation: Rate is well controlled. Presently receiving Eliquis. BPH: Takes doxazosin. Voiding spontaneously, denies retention. We will obtain a post void residual. Dispo: Patient is made [facility] status as of 01/04/2021. Pending placement. PFS has had issues with contacting family. VS, I&O, 24H, Fishbone Vital Signs/I&O Vital Signs Date Time Temp Pulse Resp B/P (MAP) Pulse Ox O2 Delivery O2 Flow Rate FiO2 01/04/21 09:33 61 120/68 01/04/21 05:19 97.6 18 96 Room Air I&O- Last 24 Hours up to 6 AM 01/04/21 06:00 Intake Total 660 ml Output Total 200 ml Balance 460 ml Laboratory Data 24H LABS Laboratory Tests 2 01/04/21 05:43: Nucleated Red Blood Cells % (auto) 0.3H, Anion Gap 6L, Glomerular Filtration Rate > 60.0, Calcium Level 9.7, Magnesium Level 2.2 CBC/BMP Laboratory Tests 01/04/21 05:43 Microbiology Microbiology 12/26/20 Blood Culture - Final, Complete NO GROWTH AFTER 5 DAYS 12/26/20 Urine Culture - Final, Complete 12/26/20 Blood Culture - Final, Complete NO GROWTH AFTER 5 DAYS ZELALEM WYLIE MD Jan 04, 2021 13:58
[2021-01-04 14:00] VITALS: BP 152/58
[2021-01-04 23:52] VITALS: BP 132/60
[2021-01-05 06:25] VITALS: BP 121/64
[2021-01-05] MEDS: ASPIRIN 81MG ENTERIC TABLET PO SCH (09:23)
[2021-01-05] MEDS: SINEMET**CR** 25/100 TABCR PO SCH ×4 (09:24→20:44)
[2021-01-05] MEDS: ATORVASTATIN 20 MG TAB PO SCH (09:24)
[2021-01-05] MEDS: APIXABAN 5 MG TAB (ELIQUIS) PO SCH ×2 (09:24→20:44)
[2021-01-05] MEDS: DOXAZOSIN MESYLATE 1 MG TAB PO SCH (09:25)
[2021-01-06 06:00] VITALS: BP 156/77
[2021-01-06 06:10] VITALS: BP_SYST 144; BP_SYST 153; BP_SYST 160; BP_DIAS 87; BP_DIAS 91; BP_DIAS 93
[2021-01-06] MEDS: ASPIRIN 81MG ENTERIC TABLET PO SCH (08:01)
[2021-01-06] MEDS: SINEMET**CR** 25/100 TABCR PO SCH ×4 (08:02→20:50)
[2021-01-06] MEDS: ATORVASTATIN 20 MG TAB PO SCH (08:02)
[2021-01-06] MEDS: DOXAZOSIN MESYLATE 1 MG TAB PO SCH (08:02)
[2021-01-06] MEDS: APIXABAN 5 MG TAB (ELIQUIS) PO SCH ×2 (08:02→20:51)
[2021-01-06 20:00] VITALS: BP 106/60
[2021-01-06 22:50] VITALS: BP 106/60
[2021-01-07 06:00] VITALS: BP 170/97
[2021-01-07] MEDS: ASPIRIN 81MG ENTERIC TABLET PO SCH (08:08)
[2021-01-07] MEDS: ATORVASTATIN 20 MG TAB PO SCH (08:08)
[2021-01-07] MEDS: ACETAMINOPHEN TAB 650MG DOSE (2X325MG) PO PRN (08:08)
[2021-01-07] MEDS: SINEMET**CR** 25/100 TABCR PO SCH ×4 (08:09→20:35)
[2021-01-07] MEDS: DOXAZOSIN MESYLATE 1 MG TAB PO SCH (08:09)
[2021-01-07] MEDS: APIXABAN 5 MG TAB (ELIQUIS) PO SCH ×2 (08:09→20:35)
[2021-01-08 05:13] VITALS: BP 141/77
[2021-01-08] MEDS: DOXAZOSIN MESYLATE 1 MG TAB PO SCH (09:00)
[2021-01-08 09:06] LABS: BASO # 0.1 10^3/uL (0.0-0.2); EOS # 0.1 10^3/uL (0.0-0.5); EOS % 1.1 % (0.0-3.0); HEMATOCRIT 46.2 % (42.0-52.0); HEMOGLOBIN 14.6 g/dl (13.5-17.5); LYMPH # 4.2 10^3/uL (1.5-5.0); LYMPH % 51.9 % (24.0-44.0); MEAN CORPUSCULAR HEMOGLOBIN 32.2 pg (27.0-33.0); MEAN CORPUSCULAR HGB CONC 31.6 g/dl (32.0-36.5); MEAN CORPUSCULAR VOLUME 101.8 fl (80.0-96.0); MONO # 0.3 10^3/uL (0.0-0.8); MONO % 3.2 % (2.0-8.0); NEUTROPHILS # 3.4 10^3/uL (1.5-8.5); NEUTROPHILS % 42.6 % (36.0-66.0); PLATELET COUNT, AUTOMATED 194 10^3/uL (150-450); RED BLOOD COUNT 4.54 10^6/uL (4.30-6.10)
[2021-01-08 09:17] LABS: ALBUMIN 3.2 GM/DL (3.2-5.2); ALT/SGPT 14 U/L (12-78); BILIRUBIN,TOTAL 0.9 MG/DL (0.2-1.0); BLOOD UREA NITROGEN 25 MG/DL (7-18); CARBON DIOXIDE LEVEL 27 MEQ/L (21-32); CHLORIDE LEVEL 105 MEQ/L (98-107); CREATININE FOR GFR 0.71 MG/DL (0.70-1.30); GLOMERULAR FILTRATION RATE > 60.0 (>42); GLUCOSE, FASTING 106 MG/DL (70-100); MAGNESIUM LEVEL 2.2 MG/DL (1.8-2.4); POTASSIUM SERUM 5.2 MEQ/L (3.5-5.1); SODIUM LEVEL 138 MEQ/L (136-145); TOTAL PROTEIN 7.2 GM/DL (6.4-8.2)
[2021-01-08] MEDS: SINEMET**CR** 25/100 TABCR PO SCH ×4 (09:29→21:13)
[2021-01-08 09:30] VITALS: BP 98/50
[2021-01-08] MEDS: ATORVASTATIN 20 MG TAB PO SCH (09:30)
[2021-01-08] MEDS: APIXABAN 5 MG TAB (ELIQUIS) PO SCH ×2 (09:30→21:13)
[2021-01-08] MEDS: ASPIRIN 81MG ENTERIC TABLET PO SCH (09:30)
[2021-01-08 09:33] VITALS: BP 96/50
[2021-01-08 14:00] VITALS: BP 116/73
[2021-01-09 06:00] VITALS: BP 166/89
[2021-01-09 09:04] LABS: BLOOD UREA NITROGEN 21 MG/DL (7-18); CALCIUM LEVEL 9.8 MG/DL (8.8-10.2); CARBON DIOXIDE LEVEL 29 MEQ/L (21-32); CHLORIDE LEVEL 105 MEQ/L (98-107); CREATININE FOR GFR 0.72 MG/DL (0.70-1.30); GLOMERULAR FILTRATION RATE > 60.0 (>42); GLUCOSE, FASTING 116 MG/DL (70-100); SODIUM LEVEL 137 MEQ/L (136-145)
[2021-01-09] MEDS: ATORVASTATIN 20 MG TAB PO SCH (09:24)
[2021-01-09] MEDS: ASPIRIN 81MG ENTERIC TABLET PO SCH (09:24)
[2021-01-09] MEDS: SINEMET**CR** 25/100 TABCR PO SCH ×4 (09:24→21:33)
[2021-01-09] MEDS: APIXABAN 5 MG TAB (ELIQUIS) PO SCH ×2 (09:24→21:33)
[2021-01-09] MEDS: DOXAZOSIN MESYLATE 1 MG TAB PO SCH (09:25)
[2021-01-09] MEDS: ACETAMINOPHEN TAB 650MG DOSE (2X325MG) PO PRN (21:33)
[2021-01-09] MEDS: RAMELTEON 8 MG TAB (ROZEREM) PO SCH (21:33)
[2021-01-10] MEDS: ACETAMINOPHEN TAB 650MG DOSE (2X325MG) PO PRN ×2 (04:49→19:39)
[2021-01-10 06:00] VITALS: BP 123/71
[2021-01-10 09:15] VITALS: BP 121/71
[2021-01-10] MEDS: SINEMET**CR** 25/100 TABCR PO SCH ×4 (09:15→19:37)
[2021-01-10] MEDS: APIXABAN 5 MG TAB (ELIQUIS) PO SCH ×2 (09:15→19:37)
[2021-01-10] MEDS: ATORVASTATIN 20 MG TAB PO SCH (09:15)
[2021-01-10] MEDS: ASPIRIN 81MG ENTERIC TABLET PO SCH (09:15)
[2021-01-10] MEDS: DOXAZOSIN MESYLATE 1 MG TAB PO SCH (09:15)
[2021-01-10] MEDS: RAMELTEON 8 MG TAB (ROZEREM) PO SCH (19:37)
[2021-01-11 05:30] VITALS: BP 124/76
[2021-01-11 09:00] VITALS: BP 114/61
[2021-01-11] MEDS: ASPIRIN 81MG ENTERIC TABLET PO SCH (09:35)
[2021-01-11] MEDS: APIXABAN 5 MG TAB (ELIQUIS) PO SCH (09:35)
[2021-01-11] MEDS: ATORVASTATIN 20 MG TAB PO SCH (09:35)
[2021-01-11] MEDS: SINEMET**CR** 25/100 TABCR PO SCH ×2 (09:35→12:46)
[2021-01-11] MEDS: DOXAZOSIN MESYLATE 1 MG TAB PO SCH (09:37)
[2021-01-11] MEDS ORDERED: ELIQ5TAB PO (10:51)
[2021-01-11] MEDS ORDERED: ATOR1TAB21 PO (10:51)
[2021-01-11] MEDS ORDERED: AMLO25TA PO (10:51)
[2021-01-11] MEDS ORDERED: ASPI-551 PO (10:51)
--- NOTE | 2021-01-11 11:20 | DS.PDOC ---
Discharge Summary General Date of Admission Dec 25, 2020 at 23:28 Date of Discharge 01/11/2021 Discharge Summary PROCEDURES PERFORMED DURING STAY: [None]. ADMITTING DIAGNOSES / DISCHARGE DIAGNOSES: Frequent falls - likely 2/2 noncompliance with Parkinson's therapy Diminished peripheral pulses Parkinsonism HTN Atrial fibrillation BPH DVT prophylaxis COMPLICATIONS/CHIEF COMPLAINT: Syncope. HISTORY OF PRESENT ILLNESS: Patient is a 75-year-old male with a PMHx of A. fib (s/p PM), HTN, Parkinsonism, BPH who presented to the emergency room after he had a syncopal episode while at home. Patient has been medically cleared since 01/04, however, there was difficulty contacting family until police were contacted to check up on them. Family has come to visit patient yesterday with plans to discharge home today. Family has refused home services on discharge. Risks of such decisions were advised to the patient and family. They have verbalized understanding. HOSPITAL COURSE: Frequent falls - likely 2/2 noncompliance with Parkinson's therapy - Patient is clinically improved - c/w PT and OT - has been cleared for DC home with family supervision / care Diminished peripheral pulses - c/w Atorvastatin, Eliquis and ASA - Case had initially been discussed with vascular surgery who recommended antipl atelet therapy; patient is been adjusted to Eliquis and baby aspirin given his atrial fibrillation - Will have outpatient follow-up with vascular surgery Parkinsonism - c/w carbidopa-levodopa HTN - BP well controlled - c/w Lisinopril and Amlodipine Atrial fibrillation - Patient is currently rate controlled without any rate control medications - s/p PM in the past - Patient is on full anticoagulation with Eliquis BPH - c/w Doxazosin DVT prophylaxis - c/w full anticoagulation with Eliquis DISCHARGE MEDICATIONS: Please see below. ALLERGIES: Please see below. PHYSICAL EXAMINATION ON DISCHARGE: Vitals (See below) General: Lying in bed, no acute distress, comfortable, awake / alert HEENT: NC, AT CVS: +S1S2 Lungs: Fair air entry b/l, no evidence of wheezing, rales, rhonchi Abdomen: Soft, ND, NT Extremities: - Edema, - Calf tenderness LABORATORY DATA: Please see below. IMAGING: CT cervical spine 12/25: 1. No fracture or subluxation in the cervical spine. 2. Mild chronic anterior wedge compression fracture of T1, which is stable compared to the CTA chest on 09/09/2016. 3. C3-C4: Mild spinal canal stenosis and mild left neural foraminal stenosis. 4. C6-C7: Moderate left neural foraminal stenosis. CXR 12/25: 1. No radiographic evidence for an acute cardiopulmonary process. 2. Cardiomegaly. CT head 12/25: 1. Intact skull. No acute intracranial hemorrhage or acute intracranial abnormality. 2. Severe cerebral and cerebellar atrophy and chronic microangiopathic changes. 3. Chronic lacunar infarct involving the left basal ganglia. CT abdomen / pelvis 12/25: No acute intra-abdominal abnormality. CTA abdominal arteries 12/26: Exam terminated ECHO 12/26/20: 1. Study is of acceptable technical quality. Underlying atrial fibrillation with flutter with ventricular pacing. 2. Prominent left ventricular hypertrophy, especially in the interventricular septum with septal wall motion abnormality related to right ventricular (RV) pacing and overall left ventricular ejection fraction (LVEF) estimated 50-55%. 3. Normal right ventricle. 4. Severe biatrial enlargement. 5. Very prominent aortic sclerosis, but only minimal stenosis and mild to moderate insufficiency. 6. Very prominent degenerative abnormalities of mitral valve with no signi ficant stenosis and mild insufficiency. 7. Mild to moderate tricuspid insufficiency. 8. Elevated central venous pressure and likely moderate pulmonary hypertension. Abdomen CT arteries 12/27: 1. Atherosclerotic changes of the aorta extending into the branch vessels. 2. Poor visualization of the arterial tree is below the level knees left more so than right. I suspect there is significant disease of the lower extremities bilaterally. 3. Nodular liver contour as before. Vascular US 12/28: No evidence of DVT in the femoropopliteal veins Extremity Arterial US 12/28: Moderate to severe plaquing in the lower legs bilaterally. Significantly decreased flow in the distal right anterior tibial artery. There is occlusion of the left popliteal artery with reconstitution of the distal popliteal artery. There is o cclusion of the proximal left posterior tibial artery with reconstitution in the mid aspect. ACTIVITY: [As tolerated]. DISCHARGE PLAN: Follow up with PCP, Vascular surgery and Cardiology wihtin 7 days Remain compliant with treatment plan and medications Return to the ER if you experience any problems DISPOSITION: Home DISCHARGE CONDITION: [Stable]. TIME SPENT ON DISCHARGE: 35 minutes. Vital Signs/I&Os Vital Signs Date Time Temp Pulse Resp B/P (MAP) Pulse Ox O2 Delivery O2 Flow Rate FiO2 9/21/21 09:00 59 114/61 01/11/21 05:30 96.8 18 96 Room Air I&O- Last 24 Hours up to 6 AM 01/11/21 06:00 Intake Total 1080 ml Output Total 825 ml Balance 255 ml Discharge Medications Scheduled Amlodipine Besylate (Amlodipine Besylate) 2.5 Mg Tablet, 2.5 MG PO DAILY Apixaban (Eliquis) 5 Mg Tablet, 5 MG PO BID Aspirin (Aspirin EC) 81 Mg Tablet.dr, 81 MG PO DAILY Atorvastatin Calcium (Atorvastatin Calcium) 20 Mg Tablet, 40 MG PO DAILY Carbidopa/Levodopa (Carbidopa-Levo ER 25-100 Tab) 1 Each Tablet.er, 1 TAB PO QID, (Reported) 01/14/20 FOR 90 DAYS Doxazosin Mesylate (Doxazosin Mesylate) 1 Mg Tablet, 1 MG PO DAILY, (Reported) 01/14/20 FOR 90 DAYS Lisinopril (Lisinopril) 10 Mg Tablet, 10 MG PO DAILY, (Reported) 03/23/20 for 30 days Scheduled PRN Docusate Sodium (Docusate Sodium) 100 Mg Capsule, 100 MG PO BID PRN for CONSTIPATION, (Reported) Allergies Coded Allergies: No Known Allergies (Unverified , 08/24/16) MUMTAZ AVERY MD Jan 11, 2021 11:20
== END 2021-01-11 16:00 | disposition home or self-care (01) | DRG 92 ==
LOC: M ED 23:27 → M ED INP 23:28 → OBSVTOIN 23:28 → ENRESERV 12-26 06:40 → M PCU 12-26 06:56 → M MS5PR 12-28 17:27
PROVIDERS: ADMIT Internal Medicine; ATTEND Internal Medicine
DX: R29.6 Repeated falls (principal); R44.3 Hallucinations, unspecified; G20 Parkinson's disease; I48.91 Unspecified atrial fibrillation; Z95.5 Presence of coronary angioplasty implant and graft; Z20.822 Contact with and (suspected) exposure to COVID-19; Z79.899 Other long term (current) drug therapy; I25.10 Atherosclerotic heart disease of native coronary artery without angina pectoris; Z95.0 Presence of cardiac pacemaker; I10 Essential (primary) hypertension; E78.5 Hyperlipidemia, unspecified; M54.5 Low back pain; G89.29 Other chronic pain; Z90.49 Acquired absence of other specified parts of digestive tract; Z98.49 Cataract extraction status, unspecified eye; N40.0 Benign prostatic hyperplasia without lower urinary tract symptoms; Z91.14 Patient's other noncompliance with medication regimen

== ENCOUNTER 2021-01-16 11:54 | Inpatient (IN) | payer MEDICARE ==
[~2021-01-16] VITALS: Ht 185.4 cm; Wt 87.8 kg
[~2021-01-16 11:54] MED LIST changes: +AMLO25TA PO; +ASPI-551 PO; +ATOR1TAB21 PO; +DOXA1TAB42 PO; +MELO7.5T35 PO
--- NOTE | 2021-01-16 12:45 | REP ---
INDICATION: fell hit head on eliquis. COMPARISON: 12/26/2020 TECHNIQUE: 5 x 5 mm contiguous helical scanning with sagittal reconstruction FINDINGS: The ventricles and sulci are unchanged. The deep white matter is unchanged. The posterior fossa is unchanged. The imaged osseous structures are unchanged. The imaged paranasal sinuses are unchanged. There is opacification of the left maxillary antrum status quo. IMPRESSION: No change no acute intracranial pathology. <Electronically signed by Rakan Montes De Oca > 01/16/21 [id number]
--- NOTE | 2021-01-16 12:46 | REP ---
INDICATION: fell hit head on eliquis. COMPARISON: 12/26/2020 TECHNIQUE: 2 x 2 mm helical scans FINDINGS: Vertebral body height and alignment is unchanged. The disc spaces are unchanged. Facet joint alignment is unchanged. Paraspinal soft tissues are unchanged. IMPRESSION: No change no acute abnormality. Stable appearing chronic changes. <Electronically signed by Rakan Montes De Oca > 01/16/21 [id number]
[2021-01-16 13:22] LABS: INR 1.2; PROTHROMBIN TIME 15.6 SECONDS (12.7-14.5)
[2021-01-16 13:23] LABS: PARTIAL THROMBOPLASTIN TIME 34.4 SECONDS (25.9-37.0)
[2021-01-16 13:36] LABS: BASO % 0.4 % (0.0-1.0); EOS % 0.1 % (0.0-3.0); HEMOGLOBIN 15.8 g/dl (13.5-17.5); LYMPH # 3.3 10^3/uL (1.5-5.0); LYMPH % 33.5 % (24.0-44.0); MEAN CORPUSCULAR HEMOGLOBIN 32.4 pg (27.0-33.0); MEAN CORPUSCULAR HGB CONC 32.2 g/dl (32.0-36.5); MEAN CORPUSCULAR VOLUME 100.6 fl (80.0-96.0); MONO # 0.4 10^3/uL (0.0-0.8); MONO % 4.5 % (2.0-8.0); NEUTROPHILS # 5.9 10^3/uL (1.5-8.5); NEUTROPHILS % 61.1 % (36.0-66.0); PLATELET COUNT, AUTOMATED 153 10^3/uL (150-450); RED BLOOD COUNT 4.87 10^6/uL (4.30-6.10); WHITE BLOOD COUNT 9.7 10^3/uL (4.0-10.0)
[2021-01-16 13:46] LABS: BLOOD UREA NITROGEN 20 MG/DL (7-18); CALCIUM LEVEL 9.9 MG/DL (8.8-10.2); CARBON DIOXIDE LEVEL 29 MEQ/L (21-32); CHLORIDE LEVEL 108 MEQ/L (98-107); CREATININE FOR GFR 0.74 MG/DL (0.70-1.30); GLOMERULAR FILTRATION RATE > 60.0 (>42); GLUCOSE, FASTING 110 MG/DL (70-100); MAGNESIUM LEVEL 1.9 MG/DL (1.8-2.4); POTASSIUM SERUM 4.2 MEQ/L (3.5-5.1); SODIUM LEVEL 142 MEQ/L (136-145)
[2021-01-16] MEDS ORDERED: NS 500 ML IV ONE (14:00)
[2021-01-16 14:08] LABS: CK-MB VALUE MASS 17.2 NG/ML (<3.6); CPK CREATINE PHOSPHOKINASE 634 U/L (39-308); MB/CK RELATIVE INDEX 2.71 (< OR =4); TROPONIN I < 0.02 NG/ML (< 0.10)
--- NOTE | 2021-01-16 14:18 | REP ---
INDICATION: left hip pain s/p fall. COMPARISON: 06/13/2019 TECHNIQUE: AP and frog lateral views FINDINGS: There is left hip DJD unchanged from the prior exam. There is no acute fracture, dislocation, or subluxation. IMPRESSION: Stable appearing chronic changes <Electronically signed by Rakan Montes De Oca > 01/16/21 [id number]
[2021-01-16 16:20] LABS: RSV AMPLIFICATION NEGATIVE (NEGATIVE)
--- NOTE | 2021-01-16 17:14 | HPEPDOC ---
General Date of Admission 01/16/21 Date of Service: Jan 16, 2021 Chief Complaint The patient is a 75-year-old male admitted with a reason for visit of Fall With No Injuries. Source: Family, RN/MD, Old records History of Present Illness 75-year-old male with history of Parkinson's disease, dementia, recurrent falls, A. fib, sick sinus syndrome status post pacemaker was brought to the emergency room after fall at home. Patient fell on his right side with some abrasions in his right knee right elbow and a bruise on his right hip. He had trauma work-up done in the ED which was negative for any acute fractures or dislocation. CT head was negative for any bleed. Patient was recently here in the hospital from 12/26/2020 to 01/11/2021 when he was admitted after a fall and at that time there was some concern for a syncopal episode. Patient was worked up for syncope/presyncope which was negative and the recommendation at that time was for placement versus 24 x7 care at home. Family felt that they could provide 24x7 care at home so the patient was discharged home. Today EMS was called because patient had a fall at home and hitting his head. On my interview patient states that he came for a checkup. He thinks this is his primary care's office. Does not know that he is in the hospital. When I asked him if he fell he could not remember it. He denied any pain anywhere. I tried calling daughter Sami to get more history there was no response we will try back tomorrow. Patient is admitted for recurrent falls with possible for subacute rehab vs long-term plan placement. Home Medications Scheduled Amlodipine Besylate (Amlodipine Besylate) 2.5 Mg Tablet, 2.5 MG PO DAILY Apixaban (Eliquis) 5 Mg Tablet, 5 MG PO BID Aspirin (Aspirin EC) 81 Mg Tablet.dr, 81 MG PO DAILY Atorvastatin Calcium (Atorvastatin Calcium) 20 Mg Tablet, 40 MG PO DAILY Carbidopa/Levodopa (Carbidopa-Levo ER 25-100 Tab) 1 Each Tablet.er, 1 TAB PO QID, (Reported) 01/14/20 FOR 90 DAYS Doxazosin Mesylate (Doxazosin Mesylate) 1 Mg Tablet, 1 MG PO DAILY, (Reported) 01/14/20 FOR 90 DAYS Lisinopril (Lisinopril) 10 Mg Tablet, 10 MG PO DAILY, (Reported) 03/23/20 for 30 days Scheduled PRN Docusate Sodium (Docusate Sodium) 100 Mg Capsule, 100 MG PO BID PRN for CONSTIPATION, (Reported) Allergies Coded Allergies: No Known Allergies (Unverified , 08/24/16) Past Medical History Medical History Recurrent Falls Dementia Parkinson's disease Atrial fibrillation with sss s/p pacemaker CAD status post stent Hypertension Hyperlipidemia Arthritis Chronic back pain Peripheral arterial disease Surgical History Cardiac cath with stent placement Pacemaker placement Appendectomy Left inguinal hernia repair Cataract extraction Family History Does not know any family history of medical problems Social History * Smoker: former Smoker Alcohol: Denies Drugs: denies A-FIB/CHADSVASC A-FIB History Current/History of A-Fib/PAF?: Yes Current PO Anticoag Therapy: Yes Review of Systems Constitutional: Denies: Chills, Fever, Night Sweats ENT: Denies: Head Aches, Ear Pain, Dysphagia Skin: Denies: Rash, Itching Pulmonary: Reports: Cough; Denies: Dyspnea, Pleuritic Chest Pain Cardiovascular: Denies: Chest Pain, Palpitations, Orthopnea, Lt Headedness Gastrointestinal: Denies: Nausea, Vomiting, Abdominal Pain, Diarrhea Musculoskeletal: Denies: Neck Pain, Back Pain Neurological: Reports: Weakness, Other Symptoms (Tremors) Psych: Reports: Memory Issues Physical Examination General Exam: Positive: Alert, Cooperative, No Acute Distress, Other (Oriented to only to name) Eye Exam: Positive: PERRLA, Conjunctiva & lids normal, EOMI; Negative: Sclera icteric Neck Exam: Positive: Supple; Negative: JVD, thyromegaly Chest Exam: Positive: Normal air movement, Other (Bilateral basal crackles) Heart Exam: Positive: Rate Normal, Regular Rhythm, Normal S1, Normal S2; Negative: Murmurs Telemetry: Positive: Other Telemetry: (All paced) Abdomen Exam: Positive: Normal bowel sounds, Soft; Negative: Tenderness Extremity Exam: Negative: Clubbing, Cyanosis, Edema Skin Exam: Positive: Other skin issue (Abrasion on the right knee right elbow, bruise at right hip) Neuro Exam: Positive: Normal Tone, Other (Mumbled speech, static tremor most prominent in the right upper extremity) Psych Exam: Negative: Memory Intact, Oriented x 3 Vital Signs Vital Signs Date Time Temp Pulse Resp B/P (MAP) Pulse Ox O2 Delivery O2 Flow Rate FiO2 01/16/21 15:49 139/73 (95) 01/16/21 15:40 63 73 01/16/21 13:16 Room Air 01/16/21 12:00 98.5 20 Laboratory Data Labs 24H Laboratory Tests 2 01/16/21 12:11: Bedside Glucose (Misc Panel) 66L 01/16/21 13:00: Immature Granulocyte % (Auto) 0.4, Neutrophils (%) (Auto) 61.1, Lymphocytes (%) (Auto) 33.5, Monocytes (%) (Auto) 4.5, Eosinophils (%) (Auto) 0.1, Basophils (%) (Auto) 0.4, Neutrophils # (Auto) 5.9, Lymphocytes # (Auto) 3.3, Monocytes # (Auto) 0.4, Eosinophils # (Auto) 0.0, Basophils # (Auto) 0.0, Nucleated Red Blo od Cells % (auto) 0.2H, Prothrombin Time 15.6H, Prothromb Time International Ratio 1.20, Activated Partial Thromboplast Time 34.4, Anion Gap 5L, Glomerular Filtration Rate > 60.0, Lactic Acid Level 1.8, Calcium Level 9.9, Magnesium Level 1.9, Total Creatine Kinase 634H, Creatine Kinase MB 17.2H, Creatine Kinase MB Relative Index 2.71, Troponin I < 0.02, Thyroid Stimulating Hormone (TSH) 1.480 01/16/21 15:17: Coronavirus (COVID-19)(PCR) NEGATIVE, Influenza Type A (RT-PCR) NEGATIVE, Influenza Type B (RT-PCR) NEGATIVE, Respiratory Syncytial Virus (PCR) NEGATIVE CBC/BMP Laboratory Tests 01/16/21 13:00 Assessment/Plan 75-year-old male with history of Parkinson's disease, dementia, recurrent falls, A. fib, sick sinus syndrome status post pacemaker was brought to the emergency room after fall at home. Patient fell on his right side with some abrasions in his right knee right elbow and a bruise on his right hip. He had trauma work-up done in the ED which was negative for any acute fractures or dislocation. CT head was negative for any bleed. Patient was recently here in the hospital from 12/26/2020 to 01/11/2021 when he was admitted after a fall and at that time there was some concern for a syncopal episode. Patient was worked up for syncope/presyncope which was negative and the recommendation at that time was for placement versus 24 x7 care at home. Family felt that they could provide 24x7 care at home so the patient was discharged home. Today EMS was called because patient had a fall at home and hitting his head. On my interview patient states that he came for a checkup. He thinks this is his primary care's office. Does not know that he is in the hospital. When I asked him if he fell he could not remember it. He denied any pain anywhere. I tried calling daughter Sami to get more history there was no response we will try back tomorrow. Patient is admitted for recurrent falls with possible for subacute rehab vs long-term plan placement. Recurrent falls Leg due to Parkinson's disease, gait instability with associated dementia. We will check for orthostatic blood pressure changes which can contribute to falls and Parkinson's patient. During last admission had cardiac evaluation and cardiac arrhythmias as a reason for syncopal/presyncopal episode leading to fall was ruled out Echo: EF was 50 to 55%, minimal aortic stenosis and mild to moderate aortic insufficiency, mild mitral regurgitation, mild to moderate tricuspid regurgitation, moderate pulmonary hypertension, atrial fibrillation/flutter with ventricular pacing. Was monitored on telemetry for 48-hour cardiac events. PT/OT Will consult PFS as will likely need subacute rehab/long-term placement Concern for presyncope/syncopal We will check orthostatic vitals May have mild dehydration so got 1 L of IV fluids in ED Parkinson's disease Continue home meds Hypertension continue home meds amlodipine and lisinopril Peripheral arterial disease We will continue with aspirin and Eliquis Outpatient follow-up with vascular surgery. A. fib/flutter/paced Continue with Eliquis All paced rate controlled. BPH continue doxazosin Plan / VTE VTE Prophylaxis Ordered?: Yes Elisa De Oliveira MD Jan 16, 2021 17:00
[2021-01-16 17:44] VITALS: BP 146/66
[2021-01-16] MEDS ORDERED: ASPI81TA26 PO (17:57)
[2021-01-16] MEDS ORDERED: AMLO2.5T3 PO (17:57)
[2021-01-16] MEDS ORDERED: ELIQ5TAB PO (17:57)
[2021-01-16] MEDS ORDERED: ATOR40TA75 PO (17:57)
--- NOTE | 2021-01-16 17:57 | REP ---
INDICATION: cough. COMPARISON: 12/26/2020 TECHNIQUE: Portable FINDINGS: The technique utilized in obtaining the radiograph has magnified the cardiac silhouette and attenuated the interstitial markings. Cardiomediastinal silhouette is unchanged. There is cardiomegaly accentuated by technique. The single chamber bipolar pacemaker is stable. The lung aden are clear. No acute patchy parenchymal opacities or pleural effusions have developed. There is no change in the osseous structures. IMPRESSION: No acute cardiopulmonary disease. <Electronically signed by Rakan Montes De Oca > 01/16/21 [id number]
[2021-01-16] MEDS ORDERED: HOME MED LIST COMPLETE! XX SCH (18:00)
[2021-01-16 18:03] LABS: APPEARANCE, URINE CLOUDY (CLEAR); BACTERIA, URINE AUTO NEGATIVE (NEGATIVE); BILIRUBIN, URINE AUTO NEGATIVE (NEGATIVE); BLOOD, URINE BLOOD 1+ (NEGATIVE); COLOR, URINE AMBER (YELLOW); GLUCOSE, URINE (UA) AUTO NEGATIVE (NEGATIVE); KETONE, URINE AUTO NEGATIVE (NEGATIVE); LEUKOCYTE ESTERASE, URINE AUTO 2+ (NEGATIVE); MUCUS, URINE LARGE (NEGATIVE); NITRITE, URINE AUTO NEGATIVE (NEGATIVE); PROTEIN, URINE AUTO 1+ mg/dL (NEGATIVE); RBC, URINE AUTO 19 /HPF (0-3); SPECIFIC GRAVITY URINE AUTO 1.031 (1.002-1.035); SQUAMOUS EPITHELIAL CELL UR AU 0 /HPF (0-6); WBC, URINE AUTO 66 /HPF (0-3)
[2021-01-16 20:11] VITALS: BP 114/58
[2021-01-16] MEDS: SINEMET**CR** 25/100 TABCR PO SCH (20:16)
[2021-01-16] MEDS: APIXABAN 5 MG TAB (ELIQUIS) PO SCH (20:16)
--- NOTE | 2021-01-17 05:54 | ECGEPIP ---
[facility] - ED Test Date: 2021-01-16 Pat Name: JERSON BRYANT Department: Room: - Gender: Male Abstract Checker: IGNACIO : 1945 Requested By: LUZ MARINA Arevalo Order Number: [id number] Reading MD: Kaden Pedersen Measurements Intervals [place] Rate: 78 P: [place]: QRS: -66 QRSD: 194 T: 96 QT: 530 QTc: 604 Interpretive Statements Ventricular-paced rhythm SIMILAR TO 12/25/20 Electronically Signed on 01-17-2021 5:53:55 EDT by Kaden Pedersen
[2021-01-17 06:00] VITALS: BP 136/74
[2021-01-17] MEDS: SINEMET**CR** 25/100 TABCR PO SCH ×4 (08:33→20:33)
[2021-01-17] MEDS: ASPIRIN 81MG ENTERIC TABLET PO SCH (08:33)
[2021-01-17 08:34] LABS: BASO # 0.1 10^3/uL (0.0-0.2); BASO % 0.6 % (0.0-1.0); EOS # 0.2 10^3/uL (0.0-0.5); EOS % 1.7 % (0.0-3.0); HEMATOCRIT 44.9 % (42.0-52.0); HEMOGLOBIN 14.3 g/dl (13.5-17.5); LYMPH # 4.2 10^3/uL (1.5-5.0); LYMPH % 47.5 % (24.0-44.0); MEAN CORPUSCULAR HEMOGLOBIN 32.5 pg (27.0-33.0); MEAN CORPUSCULAR HGB CONC 31.8 g/dl (32.0-36.5); MONO # 0.6 10^3/uL (0.0-0.8); MONO % 6.3 % (2.0-8.0); NEUTROPHILS # 3.9 10^3/uL (1.5-8.5); NEUTROPHILS % 43.7 % (36.0-66.0); PLATELET COUNT, AUTOMATED 149 10^3/uL (150-450); WHITE BLOOD COUNT 8.9 10^3/uL (4.0-10.0)
[2021-01-17] MEDS: DOXAZOSIN MESYLATE 1 MG TAB PO SCH (08:34)
[2021-01-17] MEDS: APIXABAN 5 MG TAB (ELIQUIS) PO SCH ×2 (08:34→20:32)
[2021-01-17 08:40] LABS: BLOOD UREA NITROGEN 22 MG/DL (7-18); CALCIUM LEVEL 9.8 MG/DL (8.8-10.2); CARBON DIOXIDE LEVEL 28 MEQ/L (21-32); CHLORIDE LEVEL 106 MEQ/L (98-107); CREATININE FOR GFR 0.75 MG/DL (0.70-1.30); GLOMERULAR FILTRATION RATE > 60.0 (>42); GLUCOSE, FASTING 92 MG/DL (70-100); POTASSIUM SERUM 4.3 MEQ/L (3.5-5.1); SODIUM LEVEL 141 MEQ/L (136-145)
--- NOTE | 2021-01-17 11:35 | IPNPDOC ---
Subjective Date Seen The patient was seen on 01/17/21. Subjective Chief Complaint/HPI No acute events overnight. Patient does not remember fall. He could tell that he was in the hospital however did not know the name of the hospital. He does complain of soreness in the left knee and left buttock area. Objective Physical Examination General Exam: Positive: Alert, Cooperative, No Acute Distress, Other (Oriented to only to name) Eye Exam: Positive: PERRLA, Conjunctiva & lids normal, EOMI; Negative: Sclera icteric Neck Exam: Positive: Supple; Negative: JVD, thyromegaly Chest Exam: Positive: Normal air movement, Other (Bilateral basal crackles) Heart Exam: Positive: Rate Normal, Regular Rhythm, Normal S1, Normal S2; Negative: Murmurs Telemetry: Positive: Other Telemetry: (All paced) Abdomen Exam: Positive: Normal bowel sounds, Soft; Negative: Tenderness Extremity Exam: Negative: Clubbing, Cyanosis, Edema Skin Exam: Positive: Other skin issue (Abrasion on the right knee right elbow, bruise at right hip) Neuro Exam: Positive: Normal Tone, Other (Mumbled speech, static tremor most prominent in the right upper extremity) Psych Exam: Negative: Memory Intact, Oriented x 3 Assessment /Plan Assessment 75-year-old male with history of Parkinson's disease, dementia, recurrent falls, A. fib, sick sinus syndrome status post pacemaker was brought to the emergency room after fall at home. Patient fell on his right side with some abrasions in his right knee right elbow and a bruise on his right hip. He had trauma work-up done in the ED which was negative for any acute fractures or dislocation. CT head was negative for any bleed. Patient was recently here in the hospital from 12/26/2020 to 01/11/2021 when he was admitted after a fall and at that time there was some concern for a syncopal episode. Patient was worked up for syncope/presyncope which was negative and the recommendation at that time was for placement versus 24 x7 care at home. Family felt that they could provide 24x7 care at home so the patient was discharged home. Today EMS was called because patient had a fall at home and hitting his head. On my interview patient states that he came for a checkup. He thinks this is his primary care's office. Does not know that he is in the hospital. When I asked him if he fell he could not remember it. He denied any pain anywhere. I tried calling daughter Sami to get more history there was no response we will try back tomorrow. Patient is admitted for recurrent falls with possible for subacute rehab vs long-term plan placement. Recurrent falls Due to Parkinson's disease with gait instability and associated dementia. We will check for orthostatic blood pressure changes which can contribute to falls in Parkinson's patient. During last admission had cardiac evaluation for syncopal/presyncopal episode leading to fall. Causes where ruled out. Echo: EF was 50 to 55%, minimal aortic stenosis and mild to moderate aortic insufficiency, mild mitral regurgitation, mild to moderate tricuspid regurgitation, moderate pulmonary hypertension, atrial fibrillation/flutter with ventricular pacing. Was monitored on telemetry for 48-hour. No cardiac events. PT/OT Concern for presyncope/syncopal We will check orthostatic vitals EKG all paced rhythm Parkinson's disease Continue home meds Hypertension continue lisinopril. Have stopped amlodipine as per the blood pressure is well controlled. Peripheral arterial disease We will continue with aspirin and Eliquis Outpatient follow-up with vascular surgery. A. fib/flutter/paced Continue with Eliquis All paced rate controlled. BPH continue doxazosin Plan/VTE VTE Prophylaxis Ordered?: Yes VS, I&O, 24H, [facility] Vital Signs/I&O Vital Signs Date Time Temp Pulse Resp B/P (MAP) Pulse Ox O2 Delivery O2 Flow Rate FiO2 01/17/21 08:34 136/74 01/17/21 06:00 98.8 58 20 99 Room Air I&O- Last 24 Hours up to 6 AM 01/17/21 05:59 Intake Total 0 ml Output Total 200 ml Balance -200 ml Laboratory Data 24H LABS Laboratory Tests 2 01/16/21 12:11: Bedside Glucose (Misc Panel) 66L 01/16/21 13:00: Immature Granulocyte % (Auto) 0.4, Neutrophils (%) (Auto) 61.1, Lymphocytes (%) (Auto) 33.5, Monocytes (%) (Auto) 4.5, Eosinophils (%) (Auto) 0.1, Basophils (%) (Auto) 0.4, Neutrophils # (Auto) 5.9, Lymphocytes # (Auto) 3.3, Monocytes # (Auto) 0.4, Eosinophils # (Auto) 0.0, Basophils # (Auto) 0.0, Nucleated Red Blood Cells % (auto) 0.2H, Prothrombin Time 15.6H, Prothromb Time International Ratio 1.20, Activated Partial Thromboplast Time 34.4, Anion Gap 5L, Glomerular Filtration Rate > 60.0, Lactic Acid Level 1.8, Calcium Level 9.9, Magnesium Level 1.9, Total Creatine Kinase 634H, Creatine Kinase MB 17.2H, Creatine Kinase MB Relative Index 2.71, Troponin I < 0.02, Thyroid Stimulating Hormone (TSH) 1.480 01/16/21 15:17: Coronavirus (COVID-19)(PCR) NEGATIVE, Influenza Type A (RT-PCR) NEGATIVE, Inf luenza Type B (RT-PCR) NEGATIVE, Respiratory Syncytial Virus (PCR) NEGATIVE 01/16/21 16:56: Thyroid Stimulating Hormone (TSH) 1.140 01/16/21 17:46: Urine Color LATESHA, Urine Appearance CLOUDYH, Urine pH 5.0, Urine Specific [place] 1.031, Urine Protein 1+H, Urine Glucose (Auto)(UA) NEGATIVE, Urine Ketones (Auto) NEGATIVE, Urine Blood 1+H, Urine Nitrite NEGATIVE, Urine Bilirubin NEGATIVE, Urine Urobilinogen 4.0H, Urine Leukocyte Esterase (Auto) 2+H, Urine WBC (Auto) 66H, Urine RBC (Auto) 19H, Urine Hyaline Casts (Auto) 0, Urine Bacteria (Auto) NEGATIVE, Urine Squamous Epithelial Cells 0, Urine Mucus (Auto) LARGE, Urine Yeast-Like Cells (Auto) MODERATEH, Urine Sperm (Auto) 01/17/21 07:16: Immature Granulocyte % (Auto) 0.2, Neutrophils (%) (Auto) 43.7, Lymphocytes (%) (Auto) 47.5H, Monocytes (%) (Auto) 6.3, Eosinophils (%) (Auto) 1.7, Basophils (%) (Auto) 0.6, Neutrophils # (Auto) 3.9, Lymphocytes # (Auto) 4.2, Monocytes # (Auto) 0.6, Eosinophils # (Auto) 0.2, Basophils # (Auto) 0.1, Nucleated Red Blood Cells % (auto) 0.0, Anion Gap 7L, Glomerular Filtration Rate > 60.0, Calcium Level 9.8 CBC/BMP Laboratory Tests 01/16/21 13:00 01/17/21 07:16 Elisa De Oliveira MD Jan 17, 2021 11:35
[2021-01-17 12:41] LABS: ALBUMIN 3.1 GM/DL (3.2-5.2); ALT/SGPT 12 U/L (12-78); BILIRUBIN,DIRECT 0.7 MG/DL (0.0-0.2); TOTAL PROTEIN 6.7 GM/DL (6.4-8.2)
[2021-01-17] MEDS: ACETAMINOPHEN TAB 650MG DOSE (2X325MG) PO PRN (20:33)
[2021-01-18 06:00] VITALS: BP 134/70
[2021-01-18] MEDS: ASPIRIN 81MG ENTERIC TABLET PO SCH (07:46)
[2021-01-18] MEDS: SINEMET**CR** 25/100 TABCR PO SCH ×4 (07:46→20:06)
[2021-01-18] MEDS: APIXABAN 5 MG TAB (ELIQUIS) PO SCH ×2 (07:46→20:06)
[2021-01-18] MEDS: DOXAZOSIN MESYLATE 1 MG TAB PO SCH (07:46)
[2021-01-18] MEDS: ACETAMINOPHEN TAB 650MG DOSE (2X325MG) PO PRN (14:56)
[2021-01-19] MEDS: ACETAMINOPHEN TAB 650MG DOSE (2X325MG) PO PRN ×3 (00:14→19:45)
[2021-01-19 06:50] VITALS: BP 150/88
[2021-01-19] MEDS: SINEMET**CR** 25/100 TABCR PO SCH ×4 (10:03→19:45)
[2021-01-19] MEDS: ASPIRIN 81MG ENTERIC TABLET PO SCH (10:03)
[2021-01-19] MEDS: DOXAZOSIN MESYLATE 1 MG TAB PO SCH (10:04)
[2021-01-19] MEDS: APIXABAN 5 MG TAB (ELIQUIS) PO SCH ×2 (10:04→19:45)
[2021-01-20 06:27] VITALS: BP 159/89
[2021-01-20] MEDS: ACETAMINOPHEN TAB 650MG DOSE (2X325MG) PO PRN ×2 (08:04→15:49)
[2021-01-20] MEDS: SINEMET**CR** 25/100 TABCR PO SCH ×4 (08:04→19:57)
[2021-01-20] MEDS: DOXAZOSIN MESYLATE 1 MG TAB PO SCH (08:04)
[2021-01-20] MEDS: ASPIRIN 81MG ENTERIC TABLET PO SCH (08:04)
[2021-01-20] MEDS: APIXABAN 5 MG TAB (ELIQUIS) PO SCH ×2 (08:05→19:57)
[2021-01-20] MEDS: RAMELTEON 8 MG TAB (ROZEREM) PO PRN (19:57)
[2021-01-21] MEDS: ACETAMINOPHEN TAB 650MG DOSE (2X325MG) PO PRN ×2 (06:32→16:10)
[2021-01-21] MEDS: APIXABAN 5 MG TAB (ELIQUIS) PO SCH ×2 (08:36→20:35)
[2021-01-21] MEDS: SINEMET**CR** 25/100 TABCR PO SCH ×4 (08:36→20:35)
[2021-01-21] MEDS: DOXAZOSIN MESYLATE 1 MG TAB PO SCH (08:36)
[2021-01-21] MEDS: ASPIRIN 81MG ENTERIC TABLET PO SCH (08:36)
[2021-01-22] MEDS: ACETAMINOPHEN TAB 650MG DOSE (2X325MG) PO PRN ×2 (05:09→12:26)
[2021-01-22 06:00] VITALS: BP 143/83
--- NOTE | 2021-01-22 06:52 | IPNPDOC ---
Text Note Date of Service The patient was seen on 01/22/21. NOTE Subjective: Patient seen and examined at bedside. No acute overnight events reported. Patient voices no new medical complaints this morning. Objective: Vital Signs: reviewed General: NAD, lying comfortably in bed HEENT: NC/AT, EOMI Neck: supple, no masses Chest: lungs CTA B/L Heart: +S1S2, RRR Abd: soft, NT, ND, +BS Ext: no edema, chronic venous stasis changes b/l lower extremities Skin: no rashes MSK: full ROM at large joints Neuro: no gross focal deficits Psych: alert, awake, oriented to person and place A/P: 75-year-old male with history of Parkinson's disease, dementia, recurrent falls, A. fib, sick sinus syndrome status post pacemaker was brought to the emergency room after fall at home. Patient fell on his right side with some abrasions in his right knee right elbow and a bruise on his right hip. He had trauma work-up done in the ED which was negative for any acute fractures or dislocation. CT head was negative for any bleed. Patient was recently here in the hospital from 12/26/2020 to 01/11/2021 when he was admitted after a fall and at that time there was some concern for a syncopal episode. Patient was worked up for syncope/ presyncope which was negative and the recommendation at that time was for placement versus 24 x7 care at home. Family felt that they could provide 24x7 care at home so the patient was discharged home. EMS was called because patient had a fall at home and hitting his head. Patient is admitted for recurrent falls with possible for subacute rehab vs long-term plan placement. #Recurrent falls Due to Parkinson's disease with gait instability and associated dementia. During last admission had cardiac evaluation for syncopal/presyncopal episode leading to fall. Causes where ruled out. Echo: EF was 50 to 55%, minimal aortic stenosis and mild to moderate aortic insufficiency, mild mitral regurgitation, mild to moderate tricuspid regurgitation, moderate pulmonary hypertension, atrial fibrillation/flutter with ventricular pacing. Was monitored on telemetry for 48-hour. No cardiac events. PT/OT #Parkinson's disease Continue home meds #Hypertension continue lisinopril. Have stopped amlodipine as per the blood pressure is well controlled. #Peripheral arterial disease We will continue with aspirin and Eliquis Outpatient follow-up with vascular surgery. #A. fib/flutter/paced Continue with Eliquis #BPH continue doxazosin Dispo: pending placement VS,Fishbone, I+O VS, Fishbone, I+O Vital Signs Date Time Temp Pulse Resp B/P (MAP) Pulse Ox O2 Delivery O2 Flow Rate FiO2 01/21/21 08:36 159/89 01/20/21 06:27 98.3 82 18 99 Room Air I&O- Last 24 Hours up to 6 AM 01/22/21 05:59 Intake Total 810 ml Output Total 100 ml Balance 710 ml TED MUÑOZ MD Jan 22, 2021 06:52
[2021-01-22] MEDS: DOXAZOSIN MESYLATE 1 MG TAB PO SCH (09:19)
[2021-01-22] MEDS: APIXABAN 5 MG TAB (ELIQUIS) PO SCH ×2 (09:19→20:00)
[2021-01-22] MEDS: ASPIRIN 81MG ENTERIC TABLET PO SCH (09:19)
[2021-01-22] MEDS: SINEMET**CR** 25/100 TABCR PO SCH ×4 (09:19→20:01)
[2021-01-23] MEDS: RAMELTEON 8 MG TAB (ROZEREM) PO PRN (01:13)
[2021-01-23] MEDS: ACETAMINOPHEN TAB 650MG DOSE (2X325MG) PO PRN (03:22)
[2021-01-23 06:00] VITALS: BP 165/79
[2021-01-23 07:07] LABS: HEMATOCRIT 35.2 % (42.0-52.0); HEMOGLOBIN 12.7 g/dl (13.5-17.5); MEAN CORPUSCULAR HEMOGLOBIN 37.7 pg (27.0-33.0); MEAN CORPUSCULAR HGB CONC 36.1 g/dl (32.0-36.5); MEAN CORPUSCULAR VOLUME 104.5 fl (80.0-96.0); PLATELET COUNT, AUTOMATED 122 10^3/uL (150-450); RED BLOOD COUNT 3.37 10^6/uL (4.30-6.10); WHITE BLOOD COUNT 7.2 10^3/uL (4.0-10.0)
[2021-01-23 07:29] LABS: ALBUMIN 2.7 GM/DL (3.2-5.2); ALT/SGPT 16 U/L (12-78); BILIRUBIN,TOTAL 0.9 MG/DL (0.2-1.0); BLOOD UREA NITROGEN 17 MG/DL (7-18); CALCIUM LEVEL 9.4 MG/DL (8.8-10.2); CARBON DIOXIDE LEVEL 27 MEQ/L (21-32); CHLORIDE LEVEL 107 MEQ/L (98-107); CREATININE FOR GFR 0.62 MG/DL (0.70-1.30); GLOMERULAR FILTRATION RATE > 60.0 (>42); GLUCOSE, FASTING 96 MG/DL (70-100); POTASSIUM SERUM 4.3 MEQ/L (3.5-5.1); SODIUM LEVEL 138 MEQ/L (136-145); TOTAL PROTEIN 6.5 GM/DL (6.4-8.2)
[2021-01-23] MEDS: SINEMET**CR** 25/100 TABCR PO SCH ×4 (09:54→20:36)
[2021-01-23] MEDS: APIXABAN 5 MG TAB (ELIQUIS) PO SCH ×2 (09:54→20:36)
[2021-01-23] MEDS: ASPIRIN 81MG ENTERIC TABLET PO SCH (09:54)
[2021-01-23] MEDS: DOXAZOSIN MESYLATE 1 MG TAB PO SCH (09:54)
[2021-01-24 06:21] VITALS: BP 105/56
[2021-01-24] MEDS: APIXABAN 5 MG TAB (ELIQUIS) PO SCH ×2 (08:22→20:19)
[2021-01-24] MEDS: ASPIRIN 81MG ENTERIC TABLET PO SCH (08:22)
[2021-01-24] MEDS: SINEMET**CR** 25/100 TABCR PO SCH ×4 (08:23→20:19)
[2021-01-24] MEDS ORDERED: NS 500 ML IV ONE (08:35)
[2021-01-24] MEDS: DOXAZOSIN MESYLATE 1 MG TAB PO SCH (09:00)
[2021-01-24 11:05] LABS: HEMATOCRIT 35.6 % (42.0-52.0); HEMOGLOBIN 11.4 g/dl (13.5-17.5); MEAN CORPUSCULAR VOLUME 103.2 fl (80.0-96.0); PLATELET COUNT, AUTOMATED 125 10^3/uL (150-450); RED BLOOD COUNT 3.45 10^6/uL (4.30-6.10); WHITE BLOOD COUNT 8.8 10^3/uL (4.0-10.0)
[2021-01-24 11:46] LABS: ALBUMIN 2.6 GM/DL (3.2-5.2); ALT/SGPT 10 U/L (12-78); BILIRUBIN,TOTAL 0.7 MG/DL (0.2-1.0); BLOOD UREA NITROGEN 33 MG/DL (7-18); CALCIUM LEVEL 9.3 MG/DL (8.8-10.2); CARBON DIOXIDE LEVEL 26 MEQ/L (21-32); CHLORIDE LEVEL 108 MEQ/L (98-107); CK-MB VALUE MASS 1.8 NG/ML (<3.6); CPK CREATINE PHOSPHOKINASE 58 U/L (39-308); CREATININE FOR GFR 1.11 MG/DL (0.70-1.30); GLOMERULAR FILTRATION RATE > 60.0 (>42); GLUCOSE, FASTING 111 MG/DL (70-100); POTASSIUM SERUM 4.3 MEQ/L (3.5-5.1); SODIUM LEVEL 138 MEQ/L (136-145); TOTAL PROTEIN 6.4 GM/DL (6.4-8.2); TROPONIN I < 0.02 NG/ML (< 0.10)
[2021-01-24] MEDS: ACETAMINOPHEN TAB 650MG DOSE (2X325MG) PO PRN (12:59)
[2021-01-24 14:00] VITALS: BP 86/58
[2021-01-24] MEDS: NS 1,000 ML IV SCH (15:13)
--- NOTE | 2021-01-24 16:46 | IPNPDOC ---
Text Note Date of Service The patient was seen on 01/24/21. NOTE Subjective: Patient seen and examined at bedside. This morning patient was found to be hypotensive with systolic mid 80s. On evaluation he was asymptomatic however. Objective: Vital Signs: reviewed General: NAD, sitting comfortably in chair HEENT: NC/AT, EOMI Neck: supple, no masses Chest: lungs CTA B/L Heart: +S1S2, RRR Abd: soft, NT, ND, +BS Ext: no edema, chronic venous stasis changes b/l lower extremities Skin: no rashes MSK: full ROM at large joints Neuro: no gross focal deficits Psych: alert, awake, oriented to person and place A/P: 75-year-old male with history of Parkinson's disease, dementia, recurrent falls, A. fib, sick sinus syndrome status post pacemaker was brought to the emergency room after fall at home. Patient fell on his right side with some abrasions in his right knee right elbow and a bruise on his right hip. He had trauma work-up done in the ED which was negative for any acute fractures or dislocation. CT head was negative for any bleed. Patient was recently here in the hospital from 12/26/2020 to 01/11/2021 when he was admitted after a fall and at that time there was some concern for a syncopal episode. Patient was worked up for s yncope/presyncope which was negative and the recommendation at that time was for placement versus 24 x7 care at home. Family felt that they could provide 24x7 care at home so the patient was discharged home. EMS was called because patient had a fall at home and hitting his head. Patient is admitted for recurrent falls with possible for subacute rehab vs long-term plan placement. #hypotension - labs WNL - s/p fluid bolus - continue IV fluids for now #Recurrent falls Due to Parkinson's disease with gait instability and associated dementia. During last admission had cardiac evaluation for syncopal/presyncopal episode leading to fall. Causes where ruled out. Echo: EF was 50 to 55%, minimal aortic stenosis and mild to moderate aortic insufficiency, mild mitral regurgitation, mild to moderate tricuspid regurgitation, moderate pulmonary hypertension, atrial fibrillation/flutter with ventricular pacing. Was monitored on telemetry for 48-hour. No cardiac events. PT/OT #Parkinson's disease Continue home meds #Hypertension - as above, has been hypotensive - lisinopril on hold - Have stopped home amlodipine previously #Peripheral arterial disease We will continue with aspirin and Eliquis Outpatient follow-up with vascular surgery. #A. fib/flutter/paced Continue with Eliquis #BPH continue doxazosin Dispo: did have a bed available for 01/25, however given hypotension/IV fluids, hold off on discharge perhaps till 01/26 if remains stable tomorrow VS,Diya, I+O VS, [place], I+O Laboratory Tests 01/24/21 10:55 Vital Signs Date Time Temp Pulse Resp B/P (MAP) Pulse Ox O2 Delivery O2 Flow Rate FiO2 01/24/21 09:00 82/64 01/24/21 06:21 98.7 64 18 96 Room Air I&O- Last 24 Hours up to 6 AM 01/24/21 06:00 Intake Total 600 ml Balance 600 ml TED MUÑOZ MD Jan 24, 2021 16:46
[2021-01-25] MEDS: NS 1,000 ML IV SCH (02:12)
[2021-01-25 06:39] VITALS: BP 132/63
[2021-01-25 07:18] LABS: HEMATOCRIT 32.1 % (42.0-52.0); HEMOGLOBIN 10.4 g/dl (13.5-17.5); MEAN CORPUSCULAR HEMOGLOBIN 32.7 pg (27.0-33.0); MEAN CORPUSCULAR HGB CONC 32.4 g/dl (32.0-36.5); MEAN CORPUSCULAR VOLUME 100.9 fl (80.0-96.0); PLATELET COUNT, AUTOMATED 109 10^3/uL (150-450); RED BLOOD COUNT 3.18 10^6/uL (4.30-6.10); WHITE BLOOD COUNT 8.2 10^3/uL (4.0-10.0)
[2021-01-25 07:29] LABS: ALBUMIN 2.7 GM/DL (3.2-5.2); ALT/SGPT 14 U/L (12-78); BILIRUBIN,TOTAL 1.1 MG/DL (0.2-1.0); BLOOD UREA NITROGEN 23 MG/DL (7-18); CALCIUM LEVEL 8.7 MG/DL (8.8-10.2); CARBON DIOXIDE LEVEL 24 MEQ/L (21-32); CHLORIDE LEVEL 106 MEQ/L (98-107); CREATININE FOR GFR 0.58 MG/DL (0.70-1.30); GLOMERULAR FILTRATION RATE > 60.0 (>42); GLUCOSE, FASTING 86 MG/DL (70-100); POTASSIUM SERUM 4.4 MEQ/L (3.5-5.1); SODIUM LEVEL 138 MEQ/L (136-145); TOTAL PROTEIN 5.8 GM/DL (6.4-8.2)
[2021-01-25] MEDS ORDERED: CARD1TAB4 PO (07:48)
--- NOTE | 2021-01-25 07:56 | DS.PDOC ---
Discharge Summary General Date of Admission Jan 16, 2021 Date of Discharge Jan 25, 2021 Discharge Summary PROCEDURES PERFORMED DURING STAY: None ADMITTING DIAGNOSES: 1. Recurrent falls 2. Dehydration 3. Parkinson's disease 4. Hypertension 5. Peripheral arterial disease 6. Atrial fibrillation/flutter (paced) 7. BPH DISCHARGE DIAGNOSES: 1. Recurrent falls 2. Dehydration 3. Parkinson's disease 4. Hypertension 5. Peripheral arterial disease 6. Atrial fibrillation/flutter (paced) 7. BPH COMPLICATIONS/CHIEF COMPLAINT: Parkinson Disease,Repeated Falls. HISTORY OF PRESENT ILLNESS: Copied from admitting attending's H&P " 75-year-old male with history of Parkinson's disease, dementia, recurrent falls, A. fib, sick sinus syndrome status post pacemaker was brought to the emergency room after fall at home. Patient fell on his right side with some abrasions in his right knee right elbow and a bruise on his right hip. He had trauma work-up done in the ED which was negative for any acute fractures or dislocation. CT head was negative for any bleed. Patient was recently here in the hospital from 12/26/2020 to 01/11/2021 when he was admitted after a fall and at that time there was some concern for a syncopal episode. Patient was worked up for syncope/presyncope which was negative and the recommendation at that time was for placement versus 24 x7 care at home. Family felt that they could provide 24x7 care at home so the patient was discharged home. Today EMS was called because patient had a fall at home and hitting his head. On my interview patient states that he came for a checkup. He thinks this is his primary care's office. Does not know that he is in the hospital. When I asked him if he fell he could not remember it. He denied any pain anywhere. I tried calling daughter Sami to get more history there was no response we will try back tomorrow. Patient is admitted for recurrent falls with possible for subacute rehab vs long-term plan placement. " HOSPITAL COURSE: Patient did well during hospitalization. Towards the end of the hospitalization, patient had mild hypotension. Antihypertensives were held and IVF was given. This morning, patient was not on IV fluids and blood pressure was stable. He may have been dehydrated yesterday and required some fluids. Today, patient denied any chest pain or dyspnea. He also denied any lightheadedness or dizziness. Patient will be going to placement in [place], [place] today. DISCHARGE MEDICATIONS: Please see below. ALLERGIES: Please see below. PHYSICAL EXAMINATION ON DISCHARGE: VITAL SIGNS: Please see below. GENERAL: Comfortable, in no apparent distress. HEENT: Sclera clear. NECK: Supple. RESPIRATORY: Lungs clear to auscultation bilaterally, no rales, wheeze or rhonchi. CARDIOVASCULAR: Regular rate and rhythm. ABDOMEN: Soft, nontender, no guarding or rebound tenderness. Normal bowel sounds. MUSCLE SKELETAL: No pitting edema bilaterally NEUROLOGICAL: Right hand pill rolling. PSYCHOLOGICAL: Normal mood and affect LABORATORY DATA: Please see below. IMAGING: Please see radiology reports PROGNOSIS: Good ACTIVITY: As tolerated. DIET: Mechanical soft diet DISCHARGE PLAN: Placement in [place], [place] DISPOSITION: Placement in [place], [place]. DISCHARGE INSTRUCTIONS: 1. Follow up with PCP within 1 week ITEMS TO FOLLOWUP ON ON OUTPATIENT: 1. Blood pressure (lisinopril 10mg qD and amlodipine 2.5mg qD were discontinued. I continued doxazosin for BPH) DISCHARGE CONDITION: Stable Total time spent on discharge planning, discharge summary, and medication reconciliation: 35 minutes Vital Signs/I&Os Vital Signs Date Time Temp Pulse Resp B/P (MAP) Pulse Ox O2 Delivery O2 Flow Rate FiO2 01/25/21 06:39 97.3 60 18 132/63 (86) 99 Room Air I&O- Last 24 Hours up to 6 AM 01/25/21 06:00 Intake Total 640 ml Output Total 600 ml Balance 40 ml Laboratory Data Labs 24H Laboratory Tests 2 01/24/21 10:55: Nucleated Red Blood Cells % (auto) 0.0, Anion Gap 4L, Glomerular Filtration Rate > 60.0, Calcium Level 9.3, Total Bilirubin 0.7, Aspartate Amino Transf (AST/SGOT) 17, Alanine Aminotransferase (ALT/SGPT) 10L, Alkaline Phosphatase 100, Total Creatine Kinase 58, Creatine Kinase MB 1.8, Creatine Kinase MB Relative Index 3.10, Troponin I < 0.02, Total Protein 6.4, Albumin 2.6L, Albumin/Globulin Ratio 0.7 01/25/21 05:33: Nucleated Red Blood Cells % (auto) 0.0, Anion Gap 8, Glomerular Filtration Rate > 60.0, Calcium Level 8.7L, Total Bilirubin 1.1#H, Aspartate Amino Transf (AST/SGOT) 14, Alanine Aminotransferase (ALT/SGPT) 14, Alkaline Phosphatase 94, Total Protein 5.8L, Albumin 2.7L, Albumin/Globulin Ratio 0.9 01/25/21 07:27: CBC/BMP Laboratory Tests 01/24/21 10:55 01/25/21 05:33 Discharge Medications Scheduled Apixaban (Eliquis) 5 Mg Tablet, 5 MG PO BID, (Reported) Aspirin (Aspirin EC) 81 Mg Tablet.dr, 81 MG PO DAILY, (Reported) Atorvastatin Calcium (Atorvastatin Calcium) 40 Mg Tablet, 40 MG PO DAILY, (Reported) Carbidopa/Levodopa (Carbidopa-Levo ER 25-100 Tab) 1 Each Tablet.er, 1 TAB PO QID, (Reported) 01/14/20 FOR 90 DAYS Scheduled PRN Docusate Sodium (Docusate Sodium) 100 Mg Capsule, 100 MG PO BID PRN for CONSTIPATION, (Reported) Allergies Coded Allergies: No Known Allergies (Unverified , 08/24/16) ANA LANE DO Jan 25, 2021 07:56
[2021-01-25] MEDS: SINEMET**CR** 25/100 TABCR PO SCH (08:23)
[2021-01-25] MEDS: ASPIRIN 81MG ENTERIC TABLET PO SCH (08:23)
[2021-01-25] MEDS: APIXABAN 5 MG TAB (ELIQUIS) PO SCH (08:23)
[2021-01-25 08:24] VITALS: BP 132/63
[2021-01-25] MEDS: DOXAZOSIN MESYLATE 1 MG TAB PO SCH (08:24)
== END 2021-01-25 08:45 | DRG 93 ==
LOC: M ED 11:54 → M ED INP 11:55 → ENRESERV 17:08 → M MS5PR 17:34 → INTOOBSV 01-17 13:41 → OBSVTOIN 01-17 13:41
PROVIDERS: ADMIT Internal Medicine Nephrology; ATTEND Internal Medicine
DX: R29.6 Repeated falls (principal); G20 Parkinson's disease; I10 Essential (primary) hypertension; I73.9 Peripheral vascular disease, unspecified; I48.91 Unspecified atrial fibrillation; Z95.0 Presence of cardiac pacemaker; Z79.01 Long term (current) use of anticoagulants; N40.0 Benign prostatic hyperplasia without lower urinary tract symptoms; R26.89 Other abnormalities of gait and mobility; F03.90 Unspecified dementia, unspecified severity, without behavioral disturbance, psychotic disturbance, mood disturbance, and anxiety; Z20.822 Contact with and (suspected) exposure to COVID-19; E78.5 Hyperlipidemia, unspecified; Z90.49 Acquired absence of other specified parts of digestive tract; Z98.49 Cataract extraction status, unspecified eye; S80.01XA Contusion of right knee, initial encounter; S50.01XA Contusion of right elbow, initial encounter; S70.01XA Contusion of right hip, initial encounter; W01.0XXA Fall on same level from slipping, tripping and stumbling without subsequent striking against object, initial encounter; Y92.009 Unspecified place in unspecified non-institutional (private) residence as the place of occurrence of the external cause; I95.9 Hypotension, unspecified; E86.0 Dehydration